=== PATIENT | female | born 1955 | race Hispanic/Latino ===

== ENCOUNTER 2021-08-14 22:34 | Emergency (ER) | payer OTHER, SELFPAY ==
[2021-08-15 01:03] LABS: Absolute Lymphocytes (CBC) 0.5 K/uL (0.7-4.9); Hematocrit 35.9 % (36.0-45.0); MPV 7.9 fL (7.6-11.3); RBC Red Blood Cell Count 3.98 M/uL (3.86-4.86)
[2021-08-15] MEDS ORDERED: ONDANSETRON 4 MG/2 ML VIAL ONE (01:07)
[2021-08-15] MEDS ORDERED: MORPHINE 4 MG/ML SYR ONE (01:07)
[2021-08-15] MEDS ORDERED: NA CHLORIDE 0.9% 1,000 ML ONE (01:07)
[2021-08-15 01:20] LABS: Albumin 4.1 g/dL (3.4-5.0); Bilirubin Total 0.5 mg/dL (0.2-1.0); Potassium 3.8 mmol/L (3.5-5.1); Protein, Total 8.1 g/dL (6.4-8.2)
[2021-08-15 01:39] LABS: Urine Bacteria >50 /HPF (<20)
[2021-08-15 01:40] LABS: Urine Amorphous Sediment 2+ /HPF (NONE SEEN); Urine Mucus 1+ /HPF (NONE SEEN)
[2021-08-15 02:19] LABS: Urine Blood 2+ (Negative); Urine Glucose Negative (Negative); Urine Protein Negative (Negative); Urine pH 8.5 (5.0-7.0)
--- NOTE | 2021-08-15 03:37 | ER ---
Nurse's Notes [facility] Name: Venus Kenny Age: 66 yrs Sex: Female : 1955 Arrival Date: 08/14/2021 Time: 22:37 Bed 8 Private MD: Diagnosis: Ureterolithiasis Presentation: 08/14 22:44 Chief complaint: Patient states: RLQ pain - N/V since 1800. Coronavirus screen: At this ld1 time, the client does not indicate any symptoms associated with coronavirus-19. Ebola Screen: No symptoms or risks identified at this time. Initial Sepsis Screen: Does the patient meet any 2 criteria? No. Patient's initial sepsis screen is negative. Does the patient have a suspected source of infection? No. Patient's initial sepsis screen is negative. Risk Assessment: Do you want to hurt yourself or someone else? Patient reports no desire to harm self or others. Onset of symptoms was August 14, 2021 at 22:45. 22:44 Method Of Arrival: Ambulatory ld1 22:44 Acuity: BG 3 ld1 Triage Assessment: 22:45 General: Appears in no apparent distress. comfortable, Behavior is calm, cooperative, ld1 appropriate for age. Pain: Complains of pain in right lower quadrant Pain does not radiate. Pain currently is 9 out of 10 on a pain scale. Neuro: Level of Consciousness is awake, alert, obeys commands, Oriented to person, place, time, situation. Cardiovascular: Capillary refill < 3 seconds Patient's skin is warm and dry. Respiratory: Airway is patent Respiratory effort is even, unlabored. GI: Abdomen is flat, non-distended, Reports lower abdominal pain, nausea, vomiting. Historical: - Allergies: 22:45 BuSpar; ld1 22:45 Iodine; ld1 - PMHx: 22:45 Diverticulitis; Cancer; ld1 - PSHx: 22:45 Tonsillectomy; Total abdominal hysterectomy; ld1 - Immunization history:: Adult Immunizations up to date, Client reports receiving the 2nd dose of the Covid vaccine. - Social history:: Smoking status: Patient denies any tobacco usage or history of. Patient/guardian denies using alcohol. Screenin/27 03:24 Abuse screen: Denies threats or abuse. Nutritional screening: No deficits noted. ke1 Tuberculosis screening: No symptoms or risk factors identified. Fall Risk No fall in past 12 months (0 pts). No secondary diagnosis (0 pts). IV access (20 points). Ambulatory Aid- None/Bed Rest/Nurse Assist (0 pts). Gait- Normal/Bed Rest/Wheelchair (0 pts) Mental Status- Oriented to own ability (0 pts). Total Aldana Fall Scale indicates No Risk (0-24 pts). Assessment: 00:15 General: Appears in no apparent distress. Behavior is appropriate for age. Pain: [facility] Complains of pain in right flank and abdomen and right lower quadrant Pain currently is 8 out of 10 on a pain scale. 03:24 GI: Bowel sounds present X 4 quads. Abd is soft Abdomen is tender to palpation in right [facility] lower quadrant. Vital Signs: 08/14 22:44 BP 145 / 94; Pulse 81; Resp 18; Temp 98.1(TE); Pulse Ox 96% on R/A; Weight 56.7 kg; ld1 Height 5 ft. 0 in. (152.40 cm); Pain 9/10; 08/15 04:21 BP 134 / 86; Pulse 78; Resp 18; Pulse Ox 100% ; ke1 08/14 22:44 Body Mass Index 24.41 (56.70 kg, 152.40 cm) 1 ED Course: 08/14 22:37 Patient arrived in ED. kz 22:45 Triage completed. ld1 22:45 Arm band placed on right wrist. ld1 23:51 Luther Carlos, BETSY is Primary Nurse. ke1 23:55 Dom Olivas MD is Attending Physician. [facility] 08/15 01:17 Inserted saline lock: 20 gauge in right forearm, using aseptic technique. ke1 01:59 CT Abd/Pelvis - Without Contrast In Process Unspecified. EDMS 03:25 Bed in low position. Call light in reach. ke1 03:36 Jono Angel MD is Referral Physician. [facility] 04:19 No provider procedures requiring assistance completed. IV discontinued. ke1 Administered Medications: 01:17 Drug: Zofran (Ondansetron) 4 mg Route: IVP; Site: right forearm; ke1 01:30 Follow up: Response: Marked relief of symptoms [facility] 01:17 Drug: morphine 4 mg Route: IVP; Infused Over: 4 mins; Site: right forearm; ke1 01:30 Follow up: Response: Marked relief of symptoms ke1 01:18 Drug: NS 0.9% 1000 ml Route: IV; Rate: 1000 ml; Site: right forearm; ke1 04:20 Follow up: IV Status: Completed infusion ke1 03:50 Drug: Rocephin (cefTRIAXone) 1 grams Route: IV; Rate: per protocol; Site: right forearm;ke1 04:20 Follow up: IV Status: Completed infusion ke1 Medication: 04:20 VIS not applicable for this client. ke1 Outcome: 03:36 Discharge ordered by . [facility] 04:19 Discharged to home ambulatory. ke1 04:19 Condition: good 04:19 Discharge instructions given to patient. 04:22 Patient left the ED. ke1 Signatures: Dispatcher [employer] Dom Suh MD MD 7 Lizbeth Fong RN RN adiel1 Luther Carlos RN RN ke1 Emmy Acevedo
--- NOTE | 2021-08-15 03:38 | EDPHYS ---
Physician Documentation [facility] Name: Venus Kenny Age: 66 yrs Sex: Female : 1955 Arrival Date: 08/14/2021 Time: 22:37 Bed 8 Private MD: ED Physician Dom Olivas HPI: 08/15 00:19 This 66 yrs old Female presents to ER via Ambulatory with complaints of mh7 Abdominal Pain - Lower right, Vomiting. 00:19 The patient complains of pain in the right flank. The pain radiates to the right lower mh7 quadrant. Onset: The symptoms/episode began/occurred today, at 18:00. Modifying factors: The symptoms are alleviated by nothing. the symptoms are aggravated by nothing. Associated signs and symptoms: Pertinent positives: nausea, vomiting, Pertinent negatives: diarrhea, dizziness, dysuria, fever, urinary frequency, headache, hematuria, pain radiating to the lower extremities. Severity of pain: At its worst the pain was moderate just prior to arrival, in the emergency department the pain has improved moderately. Historical: - Allergies: 08/14 22:45 BuSpar; ld1 22:45 Iodine; ld1 - PMHx: 22:45 Diverticulitis; Cancer; ld1 - PSHx: 22:45 Tonsillectomy; Total abdominal hysterectomy; ld1 - Immunization history:: Adult Immunizations up to date, Client reports receiving the 2nd dose of the Covid vaccine. - Social history:: Smoking status: Patient denies any tobacco usage or history of. Patient/guardian denies using alcohol. ROS: 08/15 00:19 Constitutional: Negative for fever, chills, and weight loss, Eyes: Negative for injury, mh7 pain, redness, and discharge, ENT: Negative for injury, pain, and discharge, Neck: Negative for injury, pain, and swelling, Cardiovascular: Negative for chest pain, palpitations, and edema, Respiratory: Negative for shortness of breath, cough, wheezing, and pleuritic chest pain, : Negative for injury, bleeding, discharge, and swelling, MS/Extremity: Negative for injury and deformity, Skin: Negative for injury, rash, and discoloration, Neuro: Negative for headache, weakness, numbness, tingling, and seizure, Psych: Negative for depression, anxiety, suicide ideation, homicidal ideation, and hallucinations, Allergy/Immunology: Negative for hives, rash, and allergies, Endocrine: Negative for neck swelling, polydipsia, polyuria, polyphagia, and marked weight changes, Hematologic/Lymphatic: Negative for swollen nodes, abnormal bleeding, and unusual bruising. Exam: 00:19 Constitutional: This is a well developed, well nourished patient who is awake, alert, mh7 and in no acute distress. Head/Face: Normocephalic, atraumatic. Eyes: Pupils equal round and reactive to light, extra-ocular motions intact. Lids and lashes normal. Conjunctiva and sclera are non-icteric and not injected. Cornea within normal limits. Periorbital areas with no swelling, redness, or edema. Neck: Trachea midline, no thyromegaly or masses palpated, and no cervical lymphadenopathy. Supple, full range of motion without nuchal rigidity, or vertebral point tenderness. No Meningismus. Chest/axilla: Normal chest wall appearance and motion. Nontender with no deformity. No lesions are appreciated. Cardiovascular: Regular rate and rhythm with a normal S1 and S2. No gallops, murmurs, or rubs. Normal PMI, no JVD. No pulse deficits. Respiratory: Lungs have equal breath sounds bilaterally, clear to auscultation and percussion. No rales, rhonchi or wheezes noted. No increased work of breathing, no retractions or nasal flaring. Abdomen/GI: Soft, non-tender, with normal bowel sounds. No distension or tympany. No guarding or rebound. No evidence of tenderness throughout. 00:19 Skin: Warm, dry with normal turgor. Normal color with no rashes, no lesions, and no evidence of cellulitis. MS/ Extremity: Pulses equal, no cyanosis. Neurovascular intact. Full, normal range of motion. Neuro: Awake and alert, GCS 15, oriented to person, place, time, and situation. Cranial nerves II-XII grossly intact. Motor strength 5/5 in all extremities. Sensory grossly intact. Cerebellar exam normal. Normal gait. Psych: Awake, alert, with orientation to person, place and time. Behavior, mood, and affect are within normal limits. 00:19 Back: normal spinal alignment noted, CVA tenderness, that is moderate, is noted on the right, vertebral tenderness, is not appreciated, muscle spasm, is not present. Vital Signs: 08/14 22:44 BP 145 / 94; Pulse 81; Resp 18; Temp 98.1(TE); Pulse Ox 96% on R/A; Weight 56.7 kg; ld1 Height 5 ft. 0 in. (152.40 cm); Pain 9/10; 08/15 04:21 BP 134 / 86; Pulse 78; Resp 18; Pulse Ox 100% ; ke1 08/14 22:44 Body Mass Index 24.41 (56.70 kg, 152.40 cm) ld1 MDM: 03:35 Differential diagnosis: nephrolithiasis, pyelonephritis, UTI, diverticulitis. Data [facility] reviewed: vital signs, nurses notes, lab test result(s), CBC, electrolytes, urinalysis, radiologic studies, CT scan. Data interpreted: Pulse oximetry: on room air is 96 %. Interpretation: normal. Counseling: I had a detailed discussion with the patient and/or guardian regarding: the historical points, exam findings, and any diagnostic results supporting the discharge/admit diagnosis, the presence of at least one elevated blood pressure reading (>120/80) during this emergency department visit, lab results, radiology results, the need for outpatient follow up, a urologist, to return to the emergency department if symptoms worsen or persist or if there are any questions or concerns that arise at home. Response to treatment: the patient's symptoms have resolved after treatment, the patient's blood pressure is in an acceptable range, mental status has returned to baseline, the patient no longer shows bradycardia, the patient is not short of breath, the patient is not tachycardic, the patient's pain is gone, the patient's temperature has normalized. 03:36 Patient medically screened. [facility] 08/15 00:13 Order name: CBC with Diff; Complete Time: 03:28 ke 08/15 00:13 Order name: CMP; Complete Time: 03: [facility] 08/15 00:13 Order name: Lipase; Complete Time: 03: [facility] 08/15 00:14 Order name: Urine Microscopic Only; Complete Time: 03: ke 08/15 01:42 Order name: Urine Culture [facility] 08/15 02:20 Order name: Urine Dipstick-Ancillary; Complete Time: 03: [facility] 08/15 00:13 Order name: IV Saline Lock; Complete Time: 01:18 ke1 08/15 00:13 Order name: Labs collected and sent; Complete Time: 01:18 ke08/15 00:13 Order name: CT Abd/Pelvis - Without Contrast ke1 08/15 00:13 Order name: Urine Dipstick-Ancillary (obtain specimen); Complete Time: 02:19 ke1 Administered Medications: 01:17 Drug: Zofran (Ondansetron) 4 mg Route: IVP; Site: right forearm; ke1 01:30 Follow up: Response: Marked relief of symptoms ke1 01:17 Drug: morphine 4 mg Route: IVP; Infused Over: 4 mins; Site: right forearm; ke1 01:30 Follow up: Response: Marked relief of symptoms ke1 01:18 Drug: NS 0.9% 1000 ml Route: IV; Rate: 1000 ml; Site: right forearm; ke1 04:20 Follow up: IV Status: Completed infusion ke1 03:50 Drug: Rocephin (cefTRIAXone) 1 grams Route: IV; Rate: per protocol; Site: right forearm;ke1 04:20 Follow up: IV Status: Completed infusion ke1 Disposition Summary: 08/15/21 03:36 Discharge Ordered Location: Home [facility] Problem: an acute exacerbation [facility] Symptoms: have improved [facility] Condition: Stable [facility] Diagnosis - Ureterolithiasis [facility] Followup: [facility] - With: Private Physician - When: 1 - 2 days - Reason: Worsening of condition, Recheck today's complaints, Continuance of care, Re-evaluation by your physician Followup: [facility] - With: Jono Angel MD - When: 1 - 2 days - Reason: Worsening of condition, Recheck today's complaints Discharge Instructions: - Discharge Summary Sheet [facility] - Kidney Stones, [id number] [facility] Forms: - Medication Reconciliation Form [facility] - Thank You Letter [facility] - Antibiotic Education [facility] - Prescription Opioid Use [facility] Prescriptions: - Flomax 0.4 mg Oral capsule - take 1 capsule by ORAL route once daily 1/2 hour following the same meal each [facility] day; 7 capsule; Refills: 0, Product Selection Permitted - ondansetron 4 mg Oral tablet,disintegrating - place 1 tablet by TRANSLINGUAL route every 8 hours As needed; 10 tablet; [facility] Refills: 0, Product Selection Permitted - Cipro 500 mg Oral Tablet - take 1 tablet by ORAL route every 12 hours for 10 days; 20 tablet; Refills: 0, [facility] Product Selection Permitted - ketorolac 10 mg Oral tablet - take 1 tablet by ORAL route every 8 hours As needed not to exceed 40 mg in [facility] 24hrs; 12 tablet; Refills: 0, Product Selection Permitted - Tylenol-Codeine #3 300 mg-30 mg Oral - take 2 tablet by ORAL route every 6 hours As needed; 15 tablet; Refills: 0, 7 Product Selection Permitted Signatures: Dispatcher [employer] Dom Suh MD MD 7 Lizbeth Fong RN RN ld1 Luther Carlos RN RN ke1
[2021-08-15] MEDS ORDERED: NA CHLORIDE 0.9% 50 ML ONE (03:50)
[2021-08-15] MEDS ORDERED: CEFTRIAXONE 1000 MG/VIAL ONE (03:50)
[2021-08-15 04:28] VITALS: TEMP 98.1
[2021-08-15 04:30] VITALS: BP 134/86; O2SAT 100
--- NOTE | 2021-08-15 10:44 | RAD REPORT ---
EXAM DESCRIPTION: CT - Abdomen Pelvis Wo Contrast - 08/15/2021 6:53 am CLINICAL HISTORY: 66 years, Female, Abdominal pain, acute, nonlocalized COMPARISON: None. TECHNIQUE: Multiple transaxial tomograms of the abdomen and pelvis were performed from the lung base s to the symphysis pubis 5 mm slice thickness at 5 mm interval reconstruction, without administration of IV and oral contrast. Multiplanar reformats in the sagittal and coronal plane were generated and reviewed. This exam was performed according to our departmental dose-optimization protocol, which includes auto mated exposure control, adjustment of the mA and/or kV according to patient size and/or use of iterat zoran reconstruction technique. FINDINGS: The lack of IV and oral contrast limits evaluation of solid organs, subtle lesions cannot be excluded. The lung bases demonstrate to be clear. There is a small hiatal hernia. Grossly the unopacified liver demonstrated presence of a subcapsular right hepatic lobe cyst measurin g 1.6 x 1.7 cm on image 12. Otherwise the liver, gallbladder, pancreas, spleen and adrenal glands dem onstrate to be within normal limits, no significant focal lesions were identified. There is increased size of the right kidney with perinephric haziness, right hydronephrosis and proxi mal right hydroureter extending down to the level of the inferior age right side vertebral body of L4 where there is a 2.2 x 2.4 mm calculus on axial image 37 and coronal image 65. There is a lower pole calculus right kidney measuring 2.1 mm on image 29. The left kidney demonstrated presence of a mid pole calculus measuring 2.6 cm on image 20. There are findings suggesting parapelvic lower pole renal cyst measuring approximately 3.5 x 2 cm on image 23. There is no evidence for left hydronephrosis and pressure left hydroureter. Grossly the unopacified stomach, small bowel and large bowel demonstrate to be within normal limits. There is no evidence for bowel dilatation/or free air. There is diverticulosis throughout the large b owel surgical suture row within the right lower quadrant correspond to most likely previous appendect alex. The urinary bladder demonstrate to be within normal limits. The uterus is absent. There are no adnexa l masses The aorta demonstrate to be within normal limits. There is no retroperitoneal lymphadenopa thy. There is no evidence for ascites. The bone windows demonstrate rotation and levoscoliosis of a pproximately 29 degrees. IMPRESSION: 2.2 x 2.4 mm obstructing calculus in the right ureter at the level of the inferior age r ight side vertebral body of L4 with significant right hydronephrosis and proximal right hydroureter. Bilateral nephrolithiasis. Left renal cyst. Colonic diverticulosis without evidence for acute diverticulitis. Status post hysterectomy and appendectomy. Small hiatal hernia. Scoliosis of the lumbar spine. Electronically signed by: Jeronimo Walker MD 08/15/2021 2:16 AM CDT Due to temporary technical issues with the PACS/Fluency reporting system, reports are being signed by the in house radiologist without review as a courtesy to ensure prompt reporting. The interpreting r adiologist is fully responsible for the content of the report.
== END 2021-08-15 04:22 | disposition home or self-care (01) ==
LOC: ER 22:34
DX: N20.1 Calculus of ureter (principal); Z88.8 Allergy status to other drugs, medicaments and biological substances; Z91.048 Other nonmedicinal substance allergy status
CPT/HCPCS: 96365; 96361; 87088; 85025; 87086; 36415; 83690; 80053; 74176; 96375; 99283; J7030; J2405; 81003; 81015

== ENCOUNTER → 2023-04-04 | Emergency (ER) | payer OTHER ==
--- OUTSIDE RECORDS SUMMARY | 2023-04-04 11:25 | XMS REPORT | Continuity of Care Document ---
Author Name Unknown Address [address] [facility] [address] [place] [address] [facility] Address [address] [facility] [address] [place] [address] Care Team Providers Care Microcomputer Support Specialist Name Role Phone TRANG ZUÑIGA Primary Care Physician Unavailable JOANA GUTIERREZ Attending Clinician Unavailable TRANG ZUÑIGA Attending Clinician Radha YANDY Brooks Attending Clinician Unavailable YANDY FERRARA Attending Clinician Unavailable Lab, Ang - Db Attending Clinician Unavailable Trang Zuñiga MD Attending Clinician EVA ANDERSEN Attending Clinician Unavailable Eva Andersen PA-C Attending Clinician [phone] Unknown, Attending Attending Clinician UnavailTAYLOR Musa Attending Clinician UnavailTAYLOR Rene Attending Clinician UnavailPRASHANTH Rodriguez Attending Clinician Unavailable Eri Griggs Attending Clinician [phone] Joana Gutierrez MD Attending Clinician [phone] Doctor Unassigned, [place] Attending Clinician Prashanth Valadez Attending Clinician [phone] JOANA GUTIERREZ Admitting Clinician Unavailable Joana Gutierrez MD Admitting Clinician [phone] Payers Payer Name Policy Type Policy Number Effective Date Expirati on Date Source [employer] [id number] 2022 00:00:00 Problems Condition Name Condition Details Condition Category Status Onset Date Resolution Date Last Treatment Date Treating Clinician Comments Source Encounter for screening colonoscop y Encounter for screening colonoscop y Disease Active 11-17 00:00: 00 [facility] Allergies, Adverse Reactions, Alerts Allergy Name Allergy Type Status Severity Reaction(s) Onset Date Inactive Date Treating Clinician Comments Source BUSPIRON E DRUG INGREDI Active Med Other-Cmnt 10-27 00:00: 00 [facility] IODINE DRUG INGREDI Active Med Hives 10-27 00:00: 00 [facility] Buspiron e Propensi ty to adverse reaction s to drug Active Other - See comments 10-27 00:00: 00 Severe headache [facility] Iodine Drug Allergy Active Itching 10-27 00:00: 00 [facility] NO KNOWN ALLERGIE S Drug Class Active [facility] Social History Social Habit Start Date Stop Date Quantity Comments Source Gender identity [facility] Sexual orientation [facility] Alcohol intake 2023-04-01 00:00:00 2023-04-01 00:00:00 Current drinker of alcohol (finding) [facility] History of Social function 2023-04-01 00:00:00 2023-04-01 00:00:00 [facility] Tobacco use and exposure 2022-10-27 00:00:00 2022-10-27 00:00:00 Smokeless tobacco non-user [facility] Alcohol Comment 2022-10-27 00:00:00 2022-10-27 00:00:00 glass of wine monthly [facility] Sex Ass[birth year] At 1955 00:00:00 1955 00:00:00 [facility] Smoking Status Start Date Stop Date Source Tobacco smoking consumption unknown [facility] Never smoked tobacco [facility] Medications Ordered Medication Name Filled Medication Name Start Date Stop Date Current Medication? Ordering Clinician Indication Dosage Frequency Signature (SIG) Comments Components Source meloxicam 15 mg tablet 111 13:41: 42 Yes 15mg Take 1 tablet by mouth in the morning. [facility] meloxicam 15 mg tablet 11 13:41: 42 Yes 15mg Take 1 tablet by mouth in the morning. [facility] meloxicam 15 mg tablet 2023-0 04-01 13:41: 42 Yes 15mg Take 1 tablet by mouth in the morning. [facility] meloxicam 15 mg tablet 2023-0 04-01 13:41: 42 Yes 15mg Take 1 tablet by mouth in the morning. [facility] meloxicam 15 mg tablet 2023-0 04-01 13:41: 42 Yes 15mg Take 1 tablet by mouth in the morning. [facility] DULoxetine 20 mg capsule 4-0 04-01 00:00: 00 Yes [id number] 20mg Take 1 capsule by mouth in the morning. [facility] melatonin 3 mg Cap 2023-0 04-01 00:00: 00 Yes [id number] 3mg Take 3 mg by mouth at bedtime. [facility] DULoxetine 20 mg capsule 4-0 04-01 00:00: 00 Yes [id number] 20mg Take 1 capsule by mouth in the morning. [facility] melatonin 3 mg Cap 4-0 04-01 00:00: 00 Yes [id number] 3mg Take 3 mg by mouth at bedtime. [facility] DULoxetine 20 mg capsule 2023-0 04-01 00:00: 00 Yes [id number] 20mg Take 1 capsule by mouth in the morning. [facility] melatonin 3 mg Cap 4-0 04-01 00:00: 00 Yes [id number] 3mg Take 3 mg by mouth at bedtime. [facility] DULoxetine 20 mg capsule 4-0 04-01 00:00: 00 Yes [id number] 20mg Take 1 capsule by mouth in the morning. [facility] melatonin 3 mg Cap 4-0 04-01 00:00: 00 Yes [id number] 3mg Take 3 mg by mouth at bedtime. [facility] DULoxetine 20 mg capsule 4-0 04-01 00:00: 00 Yes [id number] 20mg Take 1 capsule by mouth in the morning. [facility] melatonin 3 mg Cap 04-01 00:00: 00 Yes [id number] 3mg Take 3 mg by mouth at bedtime. [facility] predniSONE 20 mg tablet 04-01 00:00: 00 04-07 05:59 :00 Yes [id number] 20mg Take 1 tablet by mouth in the morning and 1 tablet in the evening. Do all this for 5 days. [facility] predniSONE 20 mg tablet 04-01 00:00: 00 04-07 05:59 :00 Yes [id number] 20mg Take 1 tablet by mouth in the morning and 1 tablet in the evening. Do all this for 5 days. [facility] predniSONE 20 mg tablet 04-01 00:00: 00 04-07 05:59 :00 Yes [id number] 20mg Take 1 tablet by mouth in the morning and 1 tablet in the evening. Do all this for 5 days. [facility] predniSONE 20 mg tablet 04-01 00:00: 00 04-07 05:59 :00 Yes [id number] 20mg Take 1 tablet by mouth in the morning and 1 tablet in the evening. Do all this for 5 days. [facility] predniSONE 20 mg tablet 04-01 00:00: 00 04-07 05:59 :00 Yes [id number] 20mg Take 1 tablet by mouth in the morning and 1 tablet in the evening. Do all this for 5 days. [facility] bromphenira mine-pseudo ephedrine-D M (BROMFED DM) 2-30-10 mg/5 mL syrup 03-25 00:00: 00 Yes [id number] 5mL Take 5 mL by mouth 3 (three) times daily as needed for Cough. [facility] benzonatate (TESSALON PERLES) 100 mg capsule 03-25 00:00: 00 Yes [id number] Take 1-2 capsules three times a day as needed for cough. [facility] bromphenira mine-pseudo ephedrine-D M (BROMFED DM) 2-30-10 mg/5 mL syrup 0 03-25 00:00: 00 Yes [id number] 5mL Take 5 mL by mouth 3 (three) times daily as needed for Cough. [facility] benzonatate (TESSALON PERLES) 100 mg capsule 0 03-25 00:00: 00 Yes [id number] Take 1-2 capsules three times a day as needed for cough. [facility] bromphenira mine-pseudo ephedrine-D M (BROMFED DM) 2-30-10 mg/5 mL syrup 0 03-25 00:00: 00 Yes [id number] 5mL Take 5 mL by mouth 3 (three) times daily as needed for Cough. [facility] benzonatate (TESSALON PERLES) 100 mg capsule 03-25 00:00: 00 Yes [id number] Take 1-2 capsules three times a day as needed for cough. [facility] bromphenira mine-pseudo ephedrine-D M (BROMFED DM) 2-30-10 mg/5 mL syrup 0 03-25 00:00: 00 Yes [id number] 5mL Take 5 mL by mouth 3 (three) times daily as needed for Cough. [facility] benzonatate (TESSALON PERLES) 100 mg capsule 0 03-25 00:00: 00 Yes [id number] Take 1-2 capsules three times a day as needed for cough. [facility] bromphenira mine-pseudo ephedrine-D M (BROMFED DM) 2-30-10 mg/5 mL syrup 0 03-25 00:00: 00 Yes [id number] 5mL Take 5 mL by mouth 3 (three) times daily as needed for Cough. [facility] benzonatate (TESSALON PERLES) 100 mg capsule 0 03-25 00:00: 00 Yes [id number] Take 1-2 capsules three times a day as needed for cough. [facility] bromphenira mine-pseudo ephedrine-D M (BROMFED DM) 2-30-10 mg/5 mL syrup 2023-0 -04 00:00: 00 Yes [id number] 5mL Take 5 mL by mouth 3 (three) times daily as needed for Cough. [facility] benzonatate (TESSALON PERLES) 100 mg capsule 03-25 00:00: 00 Yes [id number] Take 1-2 capsules three times a day as needed for cough. [facility] bromphenira mine-pseudo ephedrine-D M (BROMFED DM) 2-30-10 mg/5 mL syrup 03-25 00:00: 00 Yes [id number] 5mL Take 5 mL by mouth 3 (three) times daily as needed for Cough. [facility] benzonatate (TESSALON PERLES) 100 mg capsule 03-25 00:00: 00 Yes [id number] Take 1-2 capsules three times a day as needed for cough. [facility] bromphenira mine-pseudo ephedrine-D M (BROMFED DM) 2-30-10 mg/5 mL syrup 2022-03 00:00: 00 Yes [id number] 5mL Take 5 mL by mouth 3 (three) times daily as needed for Cough. [facility] oseltamivir (TAMIFLU) 75 mg capsule 2022-03 00:00: 00 03-25 05:59 :00 Yes [id number] 75mg Take 1 capsule by mouth in the morning and 1 capsule in the evening. Do all this for 5 days. [facility] bromphenira mine-pseudo ephedrine-D M (BROMFED DM) 2-30-10 mg/5 mL syrup 2022-03 00:00: 00 03-25 00:00 :00 No [id number] 5mL Take 5 mL by mouth 3 (three) times daily as needed for Cough. [facility] bromphenira mine-pseudo ephedrine-D M (BROMFED DM) 2-30-10 mg/5 mL syrup 2022-03 00:00: 00 03-25 00:00 :00 No [id number] 5mL Take 5 mL by mouth 3 (three) times daily as needed for Cough. [facility] diclofenac 75 mg EC tablet 2022-03 00:00: 00 Yes [id number] 75mg Take 1 tablet by mouth 2 (two) times daily with meals as needed for Pain. [facility] dic[facility] EC tablet 2022-03 00:00: 00 Yes [id number] 75mg Take 1 tablet by mouth 2 (two) times daily with meals as needed for Pain. [facility] diclofenac 75 mg EC tablet 2022-03 00:00: 00 Yes [id number] 75mg Take 1 tablet by mouth 2 (two) times daily with meals as needed for Pain. [facility] diclofenac 75 mg EC tablet 2022-03 00:00: 00 Yes [id number] 75mg Take 1 tablet by mouth 2 (two) times daily with meals as needed for Pain. [facility] diclofenac 75 mg EC tablet 2022-03 00:00: 00 Yes [id number] 75mg Take 1 tablet by mouth 2 (two) times daily with meals as needed for Pain. [facility] diclofenac 75 mg EC tablet 2022-03 00:00: 00 Yes [id number] 75mg Take 1 tablet by mouth 2 (two) times daily with meals as needed for Pain. [facility] diclofenac 75 mg EC tablet 2022-03 00:00: 00 04-01 00:00 :00 No [id number] 75mg Take 1 tablet by mouth 2 (two) times daily with meals as needed for Pain. [facility] diclofenac 75 mg EC tablet 2022-03 00:00: 00 04-01 00:00 :00 No [id number] 75mg Take 1 tablet by mouth 2 (two) times daily with meals as needed for Pain. [facility] CHOLECALCIF SAM, VITAMIN D3, 1,250 mcg (50,000 unit) capsule 2022-03 00:00: 00 Yes [id number] TAKE 1 CAPSULE BY MOUTH ONE TIME PER WEEK [facility] meloxicam 15 mg tablet 2022-03 00:00: 00 Yes [id number] 15mg Take 1 tablet by mouth in the morning. [facility] CHOLECALCIF SAM, VITAMIN D3, 1,250 mcg (50,000 unit) capsule 2022-03 00:00: 00 Yes [id number] TAKE 1 CAPSULE BY MOUTH ONE TIME PER WEEK [facility] CHOLECALCIF SAM, VITAMIN D3, 1,250 mcg (50,000 unit) capsule 2022-03 00:00: 00 Yes [id number] TAKE 1 CAPSULE BY MOUTH ONE TIME PER WEEK [facility] CHOLECALCIF SAM, VITAMIN D3, 1,250 mcg (50,000 unit) capsule 2022-03 00:00: 00 Yes [id number] TAKE 1 CAPSULE BY MOUTH ONE TIME PER WEEK [facility] CHOLECALCIF SAM, VITAMIN D3, 1,250 mcg (50,000 unit) capsule 2022-03 00:00: 00 Yes [id number] TAKE 1 CAPSULE BY MOUTH ONE TIME PER WEEK [facility] CHOLECALCIF SAM, VITAMIN D3, 1,250 mcg (50,000 unit) capsule 2022-03 00:00: 00 Yes [id number] TAKE 1 CAPSULE BY MOUTH ONE TIME PER WEEK [facility] CHOLECALCIF SAM, VITAMIN D3, 1,250 mcg (50,000 unit) capsule 2022-03 00:00: 00 Yes [id number] TAKE 1 CAPSULE BY MOUTH ONE TIME PER WEEK [facility] CHOLECALCIF SAM, VITAMIN D3, 1,250 mcg (50,000 unit) capsule 2022-03 00:00: 00 Yes [id number] TAKE 1 CAPSULE BY MOUTH ONE TIME PER WEEK [facility] CHOLECALCIF SAM, VITAMIN D3, 1,250 mcg (50,000 unit) capsule 2022-03 00:00: 00 Yes [id number] TAKE 1 CAPSULE BY MOUTH ONE TIME PER WEEK [facility] CHOLECALCIF SAM, VITAMIN D3, 1,250 mcg (50,000 unit) capsule 2022-03 00:00: 00 Yes [id number] TAKE 1 CAPSULE BY MOUTH ONE TIME PER WEEK [facility] CHOLECALCIF SAM, VITAMIN D3, 1,250 mcg (50,000 unit) capsule 2022-03 00:00: 00 Yes [id number] TAKE 1 CAPSULE BY MOUTH ONE TIME PER WEEK [facility] CHOLECALCIF SAM, VITAMIN D3, 1,250 mcg (50,000 unit) capsule 2022-03 00:00: 00 Yes [id number] TAKE 1 CAPSULE BY MOUTH ONE TIME PER WEEK [facility] meloxicam 15 mg tablet 2022-03 00:00: 00 03-02 00:00 :00 No [id number] 15mg Take 1 tablet by mouth in the morning. [facility] meloxicam 15 mg tablet 2022-03 00:00: 00 03-02 00:00 :00 No [id number] 15mg Take 1 tablet by mouth in the morning. [facility] mv-min/iron /folic/calc ium/vitK (WOMEN'S MULTIVITAMI N ORAL) 2022-03 0 09:18: 47 Yes 1{tbl} Take 1 tablet by mouth in the morning. [facility] mv-min/iron /folic/calc ium/vitK (WOMEN'S MULTIVITAMI N ORAL) 2022-03 0 09:18: 47 Yes 1{tbl} Take 1 tablet by mouth in the morning. [facility] mv-min/iron /folic/calc ium/vitK (WOMEN'S MULTIVITAMI N ORAL) 2022-03 0 09:18: 47 Yes 1{tbl} Take 1 tablet by mouth in the morning. [facility] mv-min/iron /folic/calc ium/vitK (WOMEN'S MULTIVITAMI N ORAL) 2022-03 0 09:18: 47 Yes 1{tbl} Take 1 tablet by mouth in the morning. [facility] mv-min/iron /folic/calc ium/vitK (WOMEN'S MULTIVITAMI N ORAL) 2022-03 017 09:18: 47 Yes 1{tbl} Take 1 tablet by mouth in the morning. [facility] mv-min/iron /folic/calc ium/vitK (WOMEN'S MULTIVITAMI N ORAL) 2022-03 0-17 09:18: 47 Yes 1{tbl} Take 1 tablet by mouth in the morning. [facility] mv-min/iron /folic/calc ium/vitK (WOMEN'S MULTIVITAMI N ORAL) 2022-03 017 09:18: 47 Yes 1{tbl} Take 1 tablet by mouth in the morning. [facility] mv-min/iron /folic/calc ium/vitK (WOMEN'S MULTIVITAMI N ORAL) 2022-03 017 09:18: 47 Yes 1{tbl} Take 1 tablet by mouth in the morning. [facility] mv-min/iron /folic/calc ium/vitK (WOMEN'S MULTIVITAMI N ORAL) 2022-03 017 09:18: 47 Yes 1{tbl} Take 1 tablet by mouth in the morning. [facility] mv-min/iron /folic/calc ium/vitK (WOMEN'S MULTIVITAMI N ORAL) 2022-03 017 09:18: 47 Yes 1{tbl} Take 1 tablet by mouth in the morning. [facility] mv-min/iron /folic/calc ium/vitK (WOMEN'S MULTIVITAMI N ORAL) 2022-03 017 09:18: 47 Yes 1{tbl} Take 1 tablet by mouth in the morning. [facility] mv-min/iron /folic/calc ium/vitK (WOMEN'S MULTIVITAMI N ORAL) 2022-03 017 09:18: 47 Yes 1{tbl} Take 1 tablet by mouth in the morning. [facility] mv-min/iron /folic/calc ium/vitK (WOMEN'S MULTIVITAMI N ORAL) 2022-03 0-17 09:18: 47 Yes 1{tbl} Take 1 tablet by mouth in the morning. [facility] mv-min/iron /folic/calc ium/vitK (WOMEN'S MULTIVITAMI N ORAL) 2022-03 017 09:18: 47 Yes 1{tbl} Take 1 tablet by mouth in the morning. [facility] mv-min/iron /folic/calc ium/vitK (WOMEN'S MULTIVITAMI N ORAL) 2022-03 017 09:18: 47 Yes 1{tbl} Take 1 tablet by mouth in the morning. [facility] mv-min/iron /folic/calc ium/vitK (WOMEN'S MULTIVITAMI N ORAL) 2022-03 0 09:18: 47 Yes 1{tbl} Take 1 tablet by mouth in the morning. [facility] mv-min/iron /folic/calc ium/vitK (WOMEN'S MULTIVITAMI N ORAL) 2022-03 017 09:18: 47 Yes 1{tbl} Take 1 tablet by mouth in the morning. [facility] mv-min/iron /folic/calc ium/vitK (WOMEN'S MULTIVITAMI N ORAL) 2022-03 0 09:18: 47 Yes 1{tbl} Take 1 tablet by mouth in the morning. [facility] meloxicam 15 mg tablet 2022-03 017 00:00: 00 Yes [id number] 15mg Take 1 tablet by mouth in the morning. [facility] meloxicam 15 mg tablet 2022-03 017 00:00: 00 Yes [id number] 15mg Take 1 tablet by mouth in the morning. [facility] meloxicam 15 mg tablet 2022-03 0-17 00:00: 00 Yes [id number] 15mg Take 1 tablet by mouth in the morning. [facility] meloxicam 15 mg tablet 2022-03 0-17 00:00: 00 Yes [id number] 15mg Take 1 tablet by mouth in the morning. [facility] meloxicam 15 mg tablet 2022-03 0-17 00:00: 00 02-10 00:00 :00 No [id number] 15mg Take 1 tablet by mouth in the morning. [facility] water for irrigation irrigation solution 2022-03 0-04 15:24: 00 12-23 16:17 :54 No PRN, Starting on Wed12/23/22 at 1024, Until Wed12/23/22 at 1117, Routine, Intra-op [facility] simethicone (GAS RELIEF (SIMETHICON E)) 40 mg/0.6 mL drops 2022-03 0-04 15:24: 00 12-23 16:17 :54 No PRN, Starting on Wed12/23/22 at 1024, Until Wed12/23/22 at 1117, Routine, Intra-op [facility] lactated ringers IV infusion 1,000 mL 2022-03 0-04 14:15: 00 12-23 14:15 :00 No 1000mL at 42 mL/hr, 1,000 mL, IV Infusion, ONCE, 1 dose, On Wed12/23/22 at 0915, Routine, DSU Pre-op [facility] lactated ringers IV infusion 1,000 mL 2022-03 0-04 14:15: 00 12-23 14:15 :00 No 1000mL at 42 mL/hr, 1,000 mL, IV Infusion, ONCE, 1 dose, On Wed12/23/22 at 0915, Routine, DSU Pre-op [facility] mv-min/iron /folic/calc ium/vitK (WOMEN'S MULTIVITAMI N ORAL) 2022-03 0-04 13:00: 06 Yes 1{tbl} Take 1 tablet by mouth in the morning. [facility] mv-min/iron /folic/calc ium/vitK (WOMEN'S MULTIVITAMI N ORAL) 2022-03 0-04 13:00: 06 Yes 1{tbl} Take 1 tablet by mouth in the morning. [facility] mv-min/iron /folic/calc ium/vitK (WOMEN'S MULTIVITAMI N ORAL) 2022-03 0-04 13:00: 06 Yes 1{tbl} Take 1 tablet by mouth in the morning. [facility] mv-min/iron /folic/calc ium/vitK (WOMEN'S MULTIVITAMI N ORAL) 2022-03 0-04 13:00: 06 Yes 1{tbl} Take 1 tablet by mouth in the morning. [facility] mv-min/iron /folic/calc ium/vitK (WOMEN'S MULTIVITAMI N ORAL) 2022-03 0 13:00: 06 Yes 1{tbl} Take 1 tablet by mouth in the morning. [facility] mv-min/iron /folic/calc ium/vitK (WOMEN'S MULTIVITAMI N ORAL) 2022-03 0 13:00: 06 Yes 1{tbl} Take 1 tablet by mouth in the morning. [facility] mv-min/iron /folic/calc ium/vitK (WOMEN'S MULTIVITAMI N ORAL) 12-16 16:08: 02 Yes 1{tbl} Take 1 tablet by mouth in the morning. [facility] mv-min/iron /folic/calc ium/vitK (WOMEN'S MULTIVITAMI N ORAL) 12-16 16:08: 02 Yes 1{tbl} Take 1 tablet by mouth in the morning. [facility] mv-min/iron /folic/calc ium/vitK (WOMEN'S MULTIVITAMI N ORAL) 12-01 12:52: 19 Yes 1{tbl} Take 1 tablet by mouth in the morning. [facility] mv-min/iron /folic/calc ium/vitK (WOMEN'S MULTIVITAMI N ORAL) 12-01 12:52: 19 Yes 1{tbl} Take 1 tablet by mouth in the morning. [facility] Cholecalcif sam, Vitamin D3, 1,250 mcg (50,000 unit) capsule 11-27 00:00: 00 Yes [id number] Take 1 capsule by mouth weekly. [facility] Cholecalcif sam, Vitamin D3, 1,250 mcg (50,000 unit) capsule 11-27 00:00: 00 Yes [id number] Take 1 capsule by mouth weekly. [facility] Cholecalcif sam, Vitamin D3, 1,250 mcg (50,000 unit) capsule 0 11-27 00:00: 00 Yes [id number] Take 1 capsule by mouth weekly. [facility] Cholecalcif sam, Vitamin D3, 1,250 mcg (50,000 unit) capsule 0 11-27 00:00: 00 Yes [id number] Take 1 capsule by mouth weekly. [facility] Cholecalcif sam, Vitamin D3, 1,250 mcg (50,000 unit) capsule 11-27 00:00: 00 Yes [id number] Take 1 capsule by mouth weekly. [facility] Cholecalcif sam, Vitamin D3, 1,250 mcg (50,000 unit) capsule 11-27 00:00: 00 Yes [id number] Take 1 capsule by mouth weekly. [facility] Cholecalcif sam, Vitamin D3, 1,250 mcg (50,000 unit) capsule 11-27 00:00: 00 Yes [id number] Take 1 capsule by mouth weekly. [facility] Cholecalcif sam, Vitamin D3, 1,250 mcg (50,000 unit) capsule 0 11-27 00:00: 00 Yes [id number] Take 1 capsule by mouth weekly. [facility] Cholecalcif sam, Vitamin D3, 1,250 mcg (50,000 unit) capsule 0 11-27 00:00: 00 Yes [id number] Take 1 capsule by mouth weekly. [facility] Cholecalcif sam, Vitamin D3, 1,250 mcg (50,000 unit) capsule 0 11-27 00:00: 00 Yes [id number] Take 1 capsule by mouth weekly. [facility] Cholecalcif sam, Vitamin D3, 1,250 mcg (50,000 unit) capsule 0 11-27 00:00: 00 Yes [id number] Take 1 capsule by mouth weekly. [facility] Cholecalcif sam, Vitamin D3, 1,250 mcg (50,000 unit) capsule 0 11-27 00:00: 00 Yes [id number] Take 1 capsule by mouth weekly. [facility] Cholecalcif sam, Vitamin D3, 1,250 mcg (50,000 unit) capsule 0 11-27 00:00: 00 Yes [id number] Take 1 capsule by mouth weekly. [facility] Cholecalcif sam, Vitamin D3, 1,250 mcg (50,000 unit) capsule 0 11-27 00:00: 00 Yes [id number] Take 1 capsule by mouth weekly. [facility] Cholecalcif sam, Vitamin D3, 1,250 mcg (50,000 unit) capsule 0 11-27 00:00: 00 Yes [id number] Take 1 capsule by mouth weekly. [facility] Cholecalcif sam, Vitamin D3, 1,250 mcg (50,000 unit) capsule 11-27 00:00: 00 Yes [id number] Take 1 capsule by mouth weekly. [facility] Cholecalcif sam, Vitamin D3, 1,250 mcg (50,000 unit) capsule 0 11-27 00:00: 00 Yes [id number] Take 1 capsule by mouth weekly. [facility] Cholecalcif sam, Vitamin D3, 1,250 mcg (50,000 unit) capsule 11-27 00:00: 00 02-10 00:00 :00 No [id number] Take 1 capsule by mouth weekly. [facility] meloxicam 15 mg tablet 0 11-20 00:00: 00 12-21 04:59 :00 No [id number] 15mg Take 1 tablet by mouth in the morning for 30 days. [facility] meloxicam 15 mg tablet 0 11-20 00:00: 00 12-21 04:59 :00 No [id number] 15mg Take 1 tablet by mouth in the morning for 30 days. [facility] meloxicam 15 mg tablet 0 11-20 00:00: 00 12-21 04:59 :00 No [id number] 15mg Take 1 tablet by mouth in the morning for 30 days. [facility] meloxicam 15 mg tablet 2022-0 11-20 00:00: 00 12-21 04:59 :00 No [id number] 15mg Take 1 tablet by mouth in the morning for 30 days. [facility] meloxicam 15 mg tablet 2022-0 11-20 00:00: 00 12-21 04:59 :00 No [id number] 15mg Take 1 tablet by mouth in the morning for 30 days. [facility]am [facility] tablet 2022-0 11-20 00:00: 00 12-21 04:59 :00 No [id number] 15mg Take 1 tablet by mouth in the morning for 30 days. [facility] meloxicam 15 mg tablet 2022-0 11-20 00:00: 00 12-21 04:59 :00 No [id number] 15mg Take 1 tablet by mouth in the morning for 30 days. [facility] meloxicam 15 mg tablet 2022-0 11-20 00:00: 00 12-21 04:59 :00 No [id number] 15mg Take 1 tablet by mouth in the morning for 30 days. [facility] meloxicam 15 mg tablet 0 11-20 00:00: 00 12-21 04:59 :00 No [id number] 15mg Take 1 tablet by mouth in the morning for 30 days. [facility] meloxicam 15 mg tablet 2022-0 11-20 00:00: 00 12-21 04:59 :00 No [id number] 15mg Take 1 tablet by mouth in the morning for 30 days. [facility] mg tablet 2022-0 11-20 00:00: 00 12-21 04:59 :00 No [id number] 15mg Take 1 tablet by mouth in the morning for 30 days. [facility] meloxicam 15 mg tablet 2022-0 11-20 00:00: 00 12-21 04:59 :00 No [id number] 15mg Take 1 tablet by mouth in the morning for 30 days. [facility]am 15 mg tablet 11-20 00:00: 00 12-21 04:59 :00 No [id number] 15mg Take 1 tablet by mouth in the morning for 30 days. [facility] sodium,pota ssium,mag sulfates 17.5-3.13-1 .6 gram 8 00:00: 00 11-20 04:59 :00 No 117mL Take 117 mL by mouth once now for 1 dose. [facility] sodium,pota ssium,mag sulfates 17.5-3.13-1 .6 gram 11-19 00:00: 00 11-20 04:59 :00 No 117mL Take 117 mL by mouth once now for 1 dose. [facility] Cholecalcif sam, Vitamin D3, 1,250 mcg (50,000 unit) capsule 10-29 00:00: 00 12-19 04:59 :00 No [id number] Take 1 capsule by mouth weekly for 8 doses. [facility] Cholecalcif sam, Vitamin D3, 1,250 mcg (50,000 unit) capsule 10-29 00:00: 00 12-19 04:59 :00 No [id number] Take 1 capsule by mouth weekly for 8 doses. [facility] Cholecalcif sam, Vitamin D3, 1,250 mcg (50,000 unit) capsule 10-29 00:00: 00 12-19 04:59 :00 No [id number] Take 1 capsule by mouth weekly for 8 doses. [facility] Cholecalcif sam, Vitamin D3, 1,250 mcg (50,000 unit) capsule 10-29 00:00: 00 12-19 04:59 :00 No [id number] Take 1 capsule by mouth weekly for 8 doses. [facility] Cholecalcif sam, Vitamin D3, 1,250 mcg (50,000 unit) capsule 8 00:00: 00 12-19 04:59 :00 No [id number] Take 1 capsule by mouth weekly for 8 doses. [facility] Cholecalcif sam, Vitamin D3, 1,250 mcg (50,000 unit) capsule 10-29 00:00: 00 12-19 04:59 :00 No [id number] Take 1 capsule by mouth weekly for 8 doses. [facility] Cholecalcif sam, Vitamin D3, 1,250 mcg (50,000 unit) capsule 10-29 00:00: 00 12-19 04:59 :00 No [id number] Take 1 capsule by mouth weekly for 8 doses. [facility] Cholecalcif sam, Vitamin D3, 1,250 mcg (50,000 unit) capsule 10-29 00:00: 00 12-19 04:59 :00 No [id number] Take 1 capsule by mouth weekly for 8 doses. [facility] Cholecalcif sam, Vitamin D3, 1,250 mcg (50,000 unit) capsule 10-29 00:00: 00 12-19 04:59 :00 No [id number] Take 1 capsule by mouth weekly for 8 doses. [facility] Cholecalcif sam, Vitamin D3, 1,250 mcg (50,000 unit) capsule 10-29 00:00: 00 12-19 04:59 :00 No [id number] Take 1 capsule by mouth weekly for 8 doses. [facility] Cholecalcif sam, Vitamin D3, 1,250 mcg (50,000 unit) capsule 10-29 00:00: 00 11-27 00:00 :00 No [id number] Take 1 capsule by mouth weekly for 8 doses. [facility] Cholecalcif sam, Vitamin D3, 1,250 mcg (50,000 unit) capsule 10-29 00:00: 00 11-27 00:00 :00 No [id number] Take 1 capsule by mouth weekly for 8 doses. [facility] Cholecalcif sam, Vitamin D3, 1,250 mcg (50,000 unit) capsule 10-29 00:00: 00 11-27 00:00 :00 No [id number] Take 1 capsule by mouth weekly for 8 doses. [facility] Cholecalcif sam, Vitamin D3, 1,250 mcg (50,000 unit) capsule 10-29 00:00: 00 11-27 00:00 :00 No [id number] Take 1 capsule by mouth weekly for 8 doses. [facility] mv-min/iron /folic/calc ium/vitK (WOMEN'S MULTIVITAMI N ORAL) 10-27 14:53: 00 Yes 1{tbl} Take 1 tablet by mouth in the morning. [facility] mv-min/iron /folic/calc ium/vitK (WOMEN'S MULTIVITAMI N ORAL) 10-27 14:53: 00 Yes 1{tbl} Take 1 tablet by mouth in the morning. [facility] mv-min/iron /folic/calc ium/vitK (WOMEN'S MULTIVITAMI N ORAL) 10-27 14:53: 00 Yes 1{tbl} Take 1 tablet by mouth in the morning. [facility] mv-min/iron /folic/calc ium/vitK (WOMEN'S MULTIVITAMI N ORAL) 10-27 14:53: 00 Yes 1{tbl} Take 1 tablet by mouth in the morning. [facility] mv-min/iron /folic/calc ium/vitK (WOMEN'S MULTIVITAMI N ORAL) 10-27 14:53: 00 Yes 1{tbl} Take 1 tablet by mouth in the morning. [facility] mv-min/iron /folic/calc ium/vitK (WOMEN'S MULTIVITAMI N ORAL) 10-27 14:53: 00 Yes 1{tbl} Take 1 tablet by mouth in the morning. [facility] mv-min/iron /folic/calc ium/vitK (WOMEN'S MULTIVITAMI N ORAL) 10-27 14:53: 00 Yes 1{tbl} Take 1 tablet by mouth in the morning. [facility] mv-min/iron /folic/calc ium/vitK (WOMEN'S MULTIVITAMI N ORAL) 10-27 14:53: 00 Yes 1{tbl} Take 1 tablet by mouth in the morning. [facility] mv-min/iron /folic/calc ium/vitK (WOMEN'S MULTIVITAMI N ORAL) 10-27 14:53: 00 Yes 1{tbl} Take 1 tablet by mouth in the morning. [facility] mv-min/iron /folic/calc ium/vitK (WOMEN'S MULTIVITAMI N ORAL) 10-27 14:53: 00 Yes 1{tbl} Take 1 tablet by mouth in the morning. [facility] mv-min/iron /folic/calc ium/vitK (WOMEN'S MULTIVITAMI N ORAL) 10-27 14:53: 00 Yes 1{tbl} Take 1 tablet by mouth in the morning. [facility] mv-min/iron /folic/calc ium/vitK (WOMEN'S MULTIVITAMI N ORAL) 10-27 14:53: 00 Yes 1{tbl} Take 1 tablet by mouth in the morning. [facility] mv-min/iron /folic/calc ium/vitK (WOMEN'S MULTIVITAMI N ORAL) 10-27 14:53: 00 Yes 1{tbl} Take 1 tablet by mouth in the morning. [facility] mv-min/iron /folic/calc ium/vitK (WOMEN'S MULTIVITAMI N ORAL) 10-27 14:53: 00 Yes 1{tbl} Take 1 tablet by mouth in the morning. [facility] mv-min/iron /folic/calc ium/vitK (WOMEN'S MULTIVITAMI N ORAL) 10-27 14:53: 00 Yes 1{tbl} Take 1 tablet by mouth in the morning. [facility] mv-min/iron /folic/calc ium/vitK (WOMEN'S MULTIVITAMI N ORAL) 2022-0 08 14:53: 00 Yes 1{tbl} Take 1 tablet by mouth in the morning. [facility] Immunizations Ordered Immunization Name Filled Immunization Name Date Status Comments Source SARS-COV-2 COVID-19 MODERNA 0.5ML BOOSTER VACCINE 2021-05-19 00:00:00 Completed [facility] SARS-COV-2 COVID-19 MODERNA 0.5ML BOOSTER VACCINE 2021-05-19 00:00:00 Completed [facility] SARS-COV-2 COVID-19 MODERNA 0.5ML BOOSTER VACCINE 2021-05-19 00:00:00 Completed [facility] SARS-COV-2 COVID-19 MODERNA 0.5ML BOOSTER VACCINE 2021-05-19 00:00:00 Completed [facility] SARS-COV-2 COVID-19 MODERNA 0.5ML BOOSTER VACCINE 2021-05-19 00:00:00 Completed [facility] SARS-COV-2 COVID-19 MODERNA 0.5ML BOOSTER VACCINE 2021-05-19 00:00:00 Completed [facility] SARS-COV-2 COVID-19 MODERNA 0.5ML BOOSTER VACCINE 2021-05-19 00:00:00 Completed [facility] SARS-COV-2 COVID-19 MODERNA 0.5ML BOOSTER VACCINE 2021-05-19 00:00:00 Completed [facility] SARS-COV-2 COVID-19 MODERNA 0.5ML BOOSTER VACCINE 2021-05-19 00:00:00 Completed [facility] SARS-COV-2 COVID-19 MODERNA 0.5ML BOOSTER VACCINE 2021-05-19 00:00:00 Completed [facility] SARS-COV-2 COVID-19 MODERNA 0.5ML BOOSTER VACCINE 2021-05-19 00:00:00 Completed [facility] SARS-COV-2 COVID-19 MODERNA 0.5ML BOOSTER VACCINE 2021-05-19 00:00:00 Completed [facility] SARS-COV-2 COVID-19 MODERNA 0.5ML BOOSTER VACCINE 2021-05-19 00:00:00 Completed [facility] SARS-COV-2 COVID-19 MODERNA 0.5ML BOOSTER VACCINE 2021-05-19 00:00:00 Completed [facility] SARS-COV-2 COVID-19 MODERNA 0.5ML BOOSTER VACCINE 2021-05-19 00:00:00 Completed [facility] SARS-COV-2 COVID-19 MODERNA 0.5ML BOOSTER VACCINE 2021-05-19 00:00:00 Completed [facility] SARS-COV-2 COVID-19 MODERNA 0.5ML BOOSTER VACCINE 2021-05-19 00:00:00 Completed [facility] SARS-COV-2 COVID-19 MODERNA 0.5ML BOOSTER VACCINE 2020-11-09 00:00:00 Completed [facility] SARS-COV-2 COVID-19 MODERNA 0.5ML BOOSTER VACCINE 2020-11-09 00:00:00 Completed [facility] SARS-COV-2 COVID-19 MODERNA 0.5ML BOOSTER VACCINE 2020-11-09 00:00:00 Completed [facility] SARS-COV-2 COVID-19 MODERNA 0.5ML BOOSTER VACCINE 2020-11-09 00:00:00 Completed [facility] SARS-COV-2 COVID-19 MODERNA 0.5ML BOOSTER VACCINE 2020-11-09 00:00:00 Completed [facility] SARS-COV-2 COVID-19 MODERNA 0.5ML BOOSTER VACCINE 2020-11-09 00:00:00 Completed [facility] SARS-COV-2 COVID-19 MODERNA 0.5ML BOOSTER VACCINE 2020-11-09 00:00:00 Completed [facility] SARS-COV-2 COVID-19 MODERNA 0.5ML BOOSTER VACCINE 2020-11-09 00:00:00 Completed [facility] SARS-COV-2 COVID-19 MODERNA 0.5ML BOOSTER VACCINE 2020-11-09 00:00:00 Completed [facility] SARS-COV-2 COVID-19 MODERNA 0.5ML BOOSTER VACCINE 2020-11-09 00:00:00 Completed [facility] SARS-COV-2 COVID-19 MODERNA 0.5ML BOOSTER VACCINE 2020-11-09 00:00:00 Completed [facility] SARS-COV-2 COVID-19 MODERNA 0.5ML BOOSTER VACCINE 2020-11-09 00:00:00 Completed [facility] SARS-COV-2 COVID-19 MODERNA 0.5ML BOOSTER VACCINE 2020-11-09 00:00:00 Completed [facility] SARS-COV-2 COVID-19 MODERNA 0.5ML BOOSTER VACCINE 2020-11-09 00:00:00 Completed [facility] SARS-COV-2 COVID-19 MODERNA 0.5ML BOOSTER VACCINE 2020-11-09 00:00:00 Completed [facility] SARS-COV-2 COVID-19 MODERNA 0.5ML BOOSTER VACCINE 2020-11-09 00:00:00 Completed [facility] SARS-COV-2 COVID-19 MODERNA 0.5ML BOOSTER VACCINE 2020-11-09 00:00:00 Completed [facility] SARS-COV-2 COVID-19 MODERNA 0.5ML BOOSTER VACCINE Unknown Completed [facility] SARS-COV-2 COVID-19 MODERNA 0.5ML BOOSTER VACCINE Unknown Completed [facility] SARS-COV-2 COVID-19 MODERNA 0.5ML BOOSTER VACCINE Unknown Completed [facility] SARS-COV-2 COVID-19 MODERNA 0.5ML BOOSTER VACCINE Unknown Completed [facility] SARS-COV-2 COVID-19 MODERNA 0.5ML BOOSTER VACCINE Unknown Completed [facility] SARS-COV-2 COVID-19 MODERNA 0.5ML BOOSTER VACCINE Unknown Completed [facility] SARS-COV-2 COVID-19 MODERNA 0.5ML BOOSTER VACCINE Unknown Completed [facility] SARS-COV-2 COVID-19 MODERNA 0.5ML BOOSTER VACCINE Unknown Completed [facility] Influenza Virus Vaccine,quad Im,preserve Free 65+ (FLUAD) Unknown Completed [facility] SARS-COV-2 COVID-19 MODERNA 0.5ML BOOSTER VACCINE Unknown Completed [facility] SARS-COV-2 COVID-19 MODERNA 0.5ML BOOSTER VACCINE Unknown Completed [facility] Influenza Virus Vaccine,quad Im,preserve Free 65+ (FLUAD) Unknown Completed [facility] SARS-COV-2 COVID-19 MODERNA 0.5ML BOOSTER VACCINE Unknown Completed [facility] SARS-COV-2 COVID-19 MODERNA 0.5ML BOOSTER VACCINE Unknown Completed [facility] SARS-COV-2 COVID-19 MODERNA 0.5ML BOOSTER VACCINE Unknown Completed [facility] SARS-COV-2 COVID-19 MODERNA 0.5ML BOOSTER VACCINE Unknown Completed [facility] Influenza Virus Vaccine,quad Im,preserve Free 65+ (FLUAD) Unknown Completed [facility] SARS-COV-2 COVID-19 MODERNA 0.5ML BOOSTER VACCINE Unknown Completed [facility] SARS-COV-2 COVID-19 MODERNA 0.5ML BOOSTER VACCINE Unknown Completed [facility] SARS-COV-2 COVID-19 MODERNA 0.5ML BOOSTER VACCINE Unknown Completed [facility] SARS-COV-2 COVID-19 MODERNA 0.5ML BOOSTER VACCINE Unknown Completed [facility] Influenza Virus Vaccine,quad Im,preserve Free 65+ (FLUAD) Unknown Completed [facility] SARS-COV-2 COVID-19 MODERNA 0.5ML BOOSTER VACCINE Unknown Completed [facility] SARS-COV-2 COVID-19 MODERNA 0.5ML BOOSTER VACCINE Unknown Completed [facility] Influenza Virus Vaccine,quad Im,preserve Free 65+ (FLUAD) Unknown Completed [facility] SARS-COV-2 COVID-19 MODERNA 0.5ML BOOSTER VACCINE Unknown Completed [facility] SARS-COV-2 COVID-19 MODERNA 0.5ML BOOSTER VACCINE Unknown Completed [facility] Influenza Virus Vaccine,quad Im,preserve Free 65+ (FLUAD) Unknown Completed [facility] SARS-COV-2 COVID-19 MODERNA 0.5ML BOOSTER VACCINE Unknown Completed [facility] SARS-COV-2 COVID-19 MODERNA 0.5ML BOOSTER VACCINE Unknown Completed [facility] Influenza Virus Vaccine,quad Im,preserve Free 65+ (FLUAD) Unknown Completed [facility] SARS-COV-2 COVID-19 MODERNA 0.5ML BOOSTER VACCINE Unknown Completed [facility] SARS-COV-2 COVID-19 MODERNA 0.5ML BOOSTER VACCINE Unknown Completed [facility] Influenza Virus Vaccine,quad Im,preserve Free 65+ (FLUAD) Unknown Completed [facility] SARS-COV-2 COVID-19 MODERNA 0.5ML BOOSTER VACCINE Unknown Completed [facility] SARS-COV-2 COVID-19 MODERNA 0.5ML BOOSTER VACCINE Unknown Completed [facility] Influenza Virus Vaccine,quad Im,preserve Free 65+ (FLUAD) Unknown Completed [facility] SARS-COV-2 COVID-19 MODERNA 0.5ML BOOSTER VACCINE Unknown Completed [facility] SARS-COV-2 COVID-19 MODERNA 0.5ML BOOSTER VACCINE Unknown Completed [facility] Influenza Virus Vaccine,quad Im,preserve Free 65+ (FLUAD) Unknown Completed [facility] SARS-COV-2 COVID-19 MODERNA 0.5ML BOOSTER VACCINE Unknown Completed [facility] SARS-COV-2 COVID-19 MODERNA 0.5ML BOOSTER VACCINE Unknown Completed [facility] Influenza Virus Vaccine,quad Im,preserve Free 65+ (FLUAD) Unknown Completed [facility] SARS-COV-2 COVID-19 MODERNA 0.5ML BOOSTER VACCINE Unknown Completed [facility] SARS-COV-2 COVID-19 MODERNA 0.5ML BOOSTER VACCINE Unknown Completed [facility] Influenza Virus Vaccine,quad Im,preserve Free 65+ (FLUAD) Unknown Completed [facility] SARS-COV-2 COVID-19 MODERNA 0.5ML BOOSTER VACCINE Unknown Completed [facility] SARS-COV-2 COVID-19 MODERNA 0.5ML BOOSTER VACCINE Unknown Completed [facility] SARS-COV-2 COVID-19 MODERNA 0.5ML BOOSTER VACCINE Unknown Completed [facility] Influenza Virus Vaccine,quad Im,preserve Free 65+ (FLUAD) Unknown Completed [facility] SARS-COV-2 COVID-19 MODERNA 0.5ML BOOSTER VACCINE Unknown Completed [facility] SARS-COV-2 COVID-19 MODERNA 0.5ML BOOSTER VACCINE Unknown Completed [facility] SARS-COV-2 COVID-19 MODERNA 0.5ML BOOSTER VACCINE Unknown Completed [facility] Influenza Virus Vaccine,quad Im,preserve Free 65+ (FLUAD) Unknown Completed [facility] SARS-COV-2 COVID-19 MODERNA 0.5ML BOOSTER VACCINE Unknown Completed [facility] SARS-COV-2 COVID-19 MODERNA 0.5ML BOOSTER VACCINE Unknown Completed [facility] Influenza Virus Vaccine,quad Im,preserve Free 65+ (FLUAD) Unknown Completed [facility] SARS-COV-2 COVID-19 MODERNA 0.5ML BOOSTER VACCINE Unknown Completed [facility] SARS-COV-2 COVID-19 MODERNA 0.5ML BOOSTER VACCINE Unknown Completed [facility] Influenza Virus Vaccine,quad Im,preserve Free 65+ (FLUAD) Unknown Completed [facility] SARS-COV-2 COVID-19 MODERNA 0.5ML BOOSTER VACCINE Unknown Completed [facility] SARS-COV-2 COVID-19 MODERNA 0.5ML BOOSTER VACCINE Unknown Completed [facility] SARS-COV-2 COVID-19 MODERNA 0.5ML BOOSTER VACCINE Unknown Completed [facility] SARS-COV-2 COVID-19 MODERNA 0.5ML BOOSTER VACCINE Unknown Completed [facility] SARS-COV-2 COVID-19 MODERNA 0.5ML BOOSTER VACCINE Unknown Completed [facility] SARS-COV-2 COVID-19 MODERNA 0.5ML BOOSTER VACCINE Unknown Completed [facility] SARS-COV-2 COVID-19 MODERNA 0.5ML BOOSTER VACCINE Unknown Completed [facility] SARS-COV-2 COVID-19 MODERNA 0.5ML BOOSTER VACCINE Unknown Completed [facility] SARS-COV-2 COVID-19 MODERNA 0.5ML BOOSTER VACCINE Unknown Completed [facility] SARS-COV-2 COVID-19 MODERNA 0.5ML BOOSTER VACCINE Unknown Completed [facility] Vital Signs Vital Name Observation Time Observation Value Comments S ource Systolic blood pressure 2023-04-01 19:10:00 118 mm[Hg] [facility] Diastolic blood pressure 2023-04-01 19:10:00 73 mm[Hg] [facility] Heart rate 2023-04-01 19:10:00 78 [facility] 2023-04-01 19:10:00 18 /min [facility] Body height 2023-04-01 19:10:00 [facility].4 cm [facility] 2023-04-01 19:10:00 56.972 kg [facility] BMI 2023-04-01 19:10:00 24.53 kg/m2 [facility] Oxygen saturation in Arterial blood by Pulse oximetry 2023-04-01 19:10:00 99 /min [facility] Systolic blood pressure 2023-03-25 14:37:00 112 mm[Hg] [facility] Diastolic blood pressure 2023-03-25 14:37:00 75 mm[Hg] [facility] Heart rate 2023-03-25 14:37:00 76 /min [facility] Body height 2023-03-25 14:37:00 152.4 cm [facility] 2023-03-25 14:37:00 56.518 kg [facility] BMI 2023-03-25 14:37:00 24.33 kg/m2 [facility] Oxygen saturation in Arterial blood by Pulse oximetry 2023-03-25 14:37:00 100 /min [facility] Systolic blood pressure 2023-03-19 21:15:00 120 mm[Hg] [facility] Diastolic blood pressure 2023-03-19 21:15:00 80 mm[Hg] [facility] Heart rate 2023-03-19 21:15:00 101 /min [facility] Body temperature 2023-03-19 21:15:00 37.22 Yolanda [facility] Respiratory rate 2023-03-19 21:15:00 16 /min [facility] Body height 2023-03-19 21:15:00 152.4 cm [facility] Body weight 2023-03-19 21:15:00 58.514 kg [facility] BMI 2023-03-19 21:15:00 25.19 kg/m2 [facility] Oxygen saturation in Arterial blood by Pulse oximetry 2023-03-19 21:15:00 97 /min [facility] Systolic blood pressure 2023-03-02 19:21:00 112 mm[Hg] [facility] Diastolic blood pressure 2023-03-02 19:21:00 72 mm[Hg] [facility] Heart rate 2023-03-02 19:21:00 74 /min [facility] Body height 2023-03-02 19:21:00 152.4 cm [facility] 2023-03-02 19:21:00 57.153 kg [facility] BMI 2023-03-02 19:21:00 24.61 kg/m2 [facility] Oxygen saturation in Arterial blood by Pulse oximetry 2023-03-02 19:21:00 97 /min [facility] Systolic blood pressure 2023-01-05 14:12:00 108 mm[Hg] [facility] Diastolic blood pressure 2023-01-05 14:12:00 62 mm[Hg] [facility] Heart rate 2023-01-05 14:12:00 67 /min [facility] Body temperature 2023-01-05 14:12:00 36.44 Yolanda [facility] Respiratory rate 2023-01-05 14:12:00 18 /min [facility] Body height 2023-01-05 14:12:00 152.4 cm [facility] Body weight 2023-01-05 14:12:00 56.745 kg [facility] BMI 2023-01-05 14:12:00 24.43 kg/m2 [facility] Oxygen saturation in Arterial blood by Pulse oximetry 2023-01-05 14:12:00 99 /min [facility] Heart rate 2022-12-23 16:50:00 59 /min [facility] Oxygen saturation in Arterial blood by Pulse oximetry 2022-12-23 16:50:00 92 /min [facility] Respiratory rate 2022-12-23 16:45:00 8 /min [facility] Systolic blood pressure 2022-12-23 16:43:00 140 mm[Hg] [facility] Diastolic blood pressure 2022-12-23 16:43:00 85 mm[Hg] [facility] Body temperature 2022-12-23 16:11:00 36.11 Yolanda [facility] Body height 2022-12-16 21:15:00 152.4 cm [facility] Body weight 2022-12-16 21:15:00 54.432 kg [facility] BMI 2022-12-16 21:15:00 23.44 kg/m2 [facility] Systolic blood pressure 2022-12-23 14:03:00 112 mm[Hg] [facility] Diastolic blood pressure 2022-12-23 14:03:00 69 mm[Hg] [facility] Heart rate 2022-12-23 14:03:00 71 /min [facility] Body temperature 2022-12-23 14:03:00 36.44 Yolanda [facility] Respiratory rate 2022-12-23 14:03:00 17 /min [facility] Oxygen saturation in Arterial blood by Pulse oximetry 2022-12-23 14:03:00 97 /min [facility] Body weight 2022-12-16 21:15:00 54.432 kg [facility] BMI 2022-12-16 21:15:00 23.44 kg/m2 [facility] Body height 2022-12-16 21:15:00 152.4 cm [facility] Systolic blood pressure 2022-11-27 14:43:00 108 mm[Hg] [facility] Diastolic blood pressure 2022-11-27 14:43:00 66 mm[Hg] [facility] Heart rate 2022-11-27 14:43:00 67 /min [facility] Body temperature 2022-11-27 14:43:00 36.56 Yolanda [facility] Respiratory rate 2022-11-27 14:43:00 18 /min [facility] Body height 2022-11-27 14:43:00 152.4 cm [facility] Body weight 2022-11-27 14:43:00 55.929 kg [facility] BMI 2022-11-27 14:43:00 24.08 kg/m2 [facility] Oxygen saturation in Arterial blood by Pulse oximetry 2022-11-27 14:43:00 97 /min [facility] Body height 2022-11-20 13:02:00 152.4 cm [facility] Body weight 2022-11-20 13:02:00 55.203 kg [facility] BMI 2022-11-20 13:02:00 23.77 kg/m2 [facility] Systolic blood pressure 2022-10-27 19:45:00 114 mm[Hg] [facility] Diastolic blood pressure 2022-10-27 19:45:00 72 mm[Hg] [facility] Heart rate 2022-10-27 19:45:00 79 /min [facility] Respiratory rate 2022-10-27 19:45:00 18 /min [facility] Body height 2022-10-27 19:45:00 152.4 cm [facility] Body weight 2022-10-27 19:45:00 55.43 kg [facility] BMI 2022-10-27 19:45:00 23.87 kg/m2 [facility] Oxygen saturation in Arterial blood by Pulse oximetry 2022-10-27 19:45:00 98 /min [facility] Procedures Procedure Date / Time Performed Performing Clinician Source POCT MOLECULAR FLU 2023-03-19 21:36:00 Unknown, Attend ing [facility] FLU VACC(),65+YR,0.5 ML,IM,ADJUVANTED,QUAD(FLU AD) 2023-01-05 14:29:08 Trang Zuñiga [facility] BI ULTRASOUND BREAST COMPLETE RIGHT 2022-12-30 16:02:37 Trang Zuñiga [facility] COLONOSCOPY 2022-12-23 15:08:00 Joana Gutierrez [facility] COLONOSCOPY (ENDO) 2022-12-23 14:58:49 Trang Romo [facility] COLONOSCOPY (ENDO) 2022-12-23 14:58:49 Trang Romo [facility] DAY SURGERY - ADC 2022-12-23 05:01:00 Doctor Radha ssigned, [place] [facility] INSURANCE CORRESPONDENCE 2022-12-15 05:01:00 Doc tor Unassigned, [place] [facility] XR LUMBAR SPINE 3 VW 2022-11-27 16:30:49 Trang West [facility] XR SPINE THORACIC 3 VW 2022-11-27 16:30:49 Trang Abarca [facility] XR CERVICAL SPINE 3 VW 2022-11-27 16:30:49 Trang Abarca [facility] DEXA AXIAL (HIP AND SPINE) 2022-11-26 16:49:36 Trang Zuñiga [facility] XR KNEE 3 VW BILATERAL 2022-11-20 13:26:02 Dirk Cruz [facility] ASSIGNMENT OF BENEFITS 2022-10-27 19:35:12 Docto r Unassigned, [place] [facility] Encounters Start Date/Time End Date/Time Encounter Type Admission Type Attending Clinicians Care Facility Care Department Encounter ID Source 2022-12-01 08:53:01 Outpatient JOANA GUTIERREZ [facility] [id number] [facility] 2023-05-03 09:15:00 2023-05-03 09:15:00 Outpatient TRANG PARSON [facility] [id number] [facility] 2023-04-30 10:40:00 2023-04-30 10:40:00 Outpatient TRANG PARSON [facility] [id number] [facility] 2023-04-15 08:40:00 2023-04-15 08:40:00 Outpatient YANDY CASEY CHRISTINE [facility] [id number] [facility] 2023-04-06 00:00:00 2023-04-06 00:00:00 Outpatient TRANG PARSON [facility] [id number] [facility] 2023-04-01 14:45:00 2023-04-01 15:00:00 Records Management Assistant Visit Lab, John Zuñiga CotyTrang Yann [facility] 1..840.114 350.1.13.10 4.2.7.2.686 [id number] [facility] 2023-04-01 14:20:00 2023-04-01 14:34:11 Outpatient R ZARA COTYTRANG [facility] [id number] [facility] 2023-04-01 14:20:00 2023-04-01 14:34:11 Office Visit Zara CotyTrang Yann [facility] 1.840.114 350.1.13.10 4.2.7.2.686 [id number] [facility] 2023-03-25 08:40:00 2023-03-25 09:04:17 Outpatient R KAMARJeffYANDY [facility] [id number] [facility] 2023-03-25 08:40:00 2023-03-25 09:04:17 [facility] 1..840.114 350.1.13.10 4.2.7.2.686 [id number] [facility] 2023-03-19 15:40:00 2023-03-19 16:00:52 Outpatient R EVA ANDERSEN [facility] [id number] [facility] 2023-03-19 15:40:00 2023-03-19 16:00:00 Urgent Care Eva Andersen Unknown, Attending [facility] 1.840.114 350.1.13.10 4.2.7.2.686 [id number] [facility] 2023-03-02 14:34:21 2023-03-02 23:59:00 Outpatient R YANDY FERRARA [facility] [id number] [facility] 2023-03-02 14:34:21 2023-03-02 23:59:00 Hospital Encounter [facility] JANNA?[facility] 1.840.114 350.1.13.10 4.2.7.2.686 [id number] [facility] 2023-03-02 13:20:00 2023-03-02 14:31:01 Office Visit Yandy Ferrara [facility] JANNA?[facility] 1.84.114 350.1.13.10 4.2.7.2.686 [id number] [facility] 2023-02-26 10:20:00 2023-02-26 10:20:00 Outpatient R TRANG ZUÑIGA [facility] [id number] [facility] 2023-02-26 10:20:00 2023-02-26 10:20:00 Outpatient R TRANG ZUÑIGA [facility] [id number] [facility] 2023-02-08 00:00:00 2023-02-08 00:00:00 Refill Trang Zuñiga [facility] JANNA?[facility] 1.840.114 350.1.13.10 4.2.7.2.686 [id number] [facility] 2023-02-07 00:00:00 2023-02-07 00:00:00 Refill Trang Zuñiga [facility] JANNA?[facility] 1.840.114 350.1.13.10 4.2.7.2.686 [id number] [facility] 2023-02-03 14:15:00 2023-02-03 14:15:00 Outpatient R TAYLOR DAHL CRAIG [facility] [id number] [facility] 2023-01-12 00:00:00 2023-01-12 00:00:00 Outpatient R TRANG ZUÑIGA [facility] [id number] [facility] 2023-01-05 09:00:00 2023-01-05 09:36:42 Outpatient R TRANG ZUÑIGA [facility] [id number] [facility] 2023-01-05 09:00:00 2023-01-05 09:36:42 Office Visit Trang Zuñiga [facility] 1.2.840.114 350.1.13.10 4.2.7.2.686 [id number] [facility] 2023-01-05 00:00:00 2023-01-05 00:00:00 Telephone DeannaEri [facility] 1.2.840.114 350.1.13.10 4.2.7.2.686 [id number] [facility] 2023-01-04 15:00:00 2023-01-04 15:00:00 Outpatient R PRASHANTH CRUZ [facility] [id number] [facility] 2022-12-30 10:34:16 2022-12-30 23:59:00 Hospital Encounter Trang Zuñiga [facility] 1.2.840.114 350.1.13.10 4.2.7.2.686 [id number] [facility] 2022-12-30 10:33:46 2022-12-30 10:33:00 Outpatient R TRANG ZUÑIGA [facility] [id number] [facility] 2022-12-30 10:30:00 2022-12-30 10:33:00 Hospital Encounter Trang Zuñiga [facility] 1.2.840.114 350.1.13.10 4.2.7.2.686 [id number] [facility] 2022-12-23 09:01:00 2022-12-23 11:50:00 Outpatient R JOANA GUTIERREZ [facility] [id number] [facility] 2022-12-23 09:01:00 2022-12-23 11:50:00 Hospital Encounter Brenda, Joana [facility] 1.2.840.114 350.1.13.10 4.2.7.2.686 [id number] [facility] 2022-12-23 09:57:00 2022-12-23 10:51:00 Surgery Brenda [facility] 1.2.840.114 350.1.13.10 4.2.7.2.686 [id number] [facility] 2022-12-23 00:00:00 2022-12-23 00:00:00 Orders Only Doctor Unassigned, [place] [facility] 1.2.840.114 350.1.13.10 4.2.7.2.686 [id number] [facility] 2022-12-21 00:00:00 2022-12-21 00:00:00 Patient Secure Msg Doctor Unassigned, [place] [facility] 1.2.840.114 350.1.13.10 4.2.7.2.686 [id number] [facility] 2022-12-15 00:00:00 2022-12-15 00:00:00 Orders Only Doctor Unassigned, [place] [facility] 1.2.840.114 350.1.13.10 4.2.7.2.686 [id number] [facility] 2022-12-14 00:00:00 2022-12-14 00:00:00 Telephone Trang Zuñiga [facility] 1.2.840.114 350.1.13.10 4.2.7.2.686 [id number] [facility] 2022-12-08 00:00:00 2022-12-08 00:00:00 Case Management Trang Zuñiga [facility] 1.2.840.114 350.1.13.10 4.2.7.2.686 [id number] [facility] 2022-12-03 00:00:00 2022-12-03 00:00:00 Patient Secure Msg Doctor Unassigned, [place] [facility] 1.2.840.114 350.1.13.10 4.2.7.2.686 [id number] [facility] 2022-11-28 00:00:00 2022-11-28 00:00:00 Patient Secure Msg Doctor Unassigned, [place] [facility] 1.2.840.114 350.1.13.10 4.2.7.2.686 [id number] [facility] 2022-11-27 10:57:30 2022-11-27 23:59:00 Hospital Encounter Trang Zuñiga [facility] 1.2.840.114 350.1.13.10 4.2.7.2.686 [id number] [facility] 2022-11-27 09:40:00 2022-11-27 10:14:20 Office Visit Trang Zuñiga [facility] 1.2.840.114 350.1.13.10 4.2.7.2.686 [id number] [facility] 2022-11-27 09:40:00 2022-11-27 10:14:20 Outpatient R ZARA , TRANG [facility] [id number] [facility] 2022-11-26 11:07:38 2022-11-26 23:59:00 Hospital Encounter Trang Zuñiga [facility] 1.84114 350.1.13.10 4.2.7.2.686 [id number] [facility] 2022-11-26 11:07:38 2022-11-26 23:59:00 Outpatient R TRANG ZUÑIGA [facility] [id number] [facility] 2022-11-26 11:07:16 2022-11-26 23:59:00 Hospital Encounter Zara Trang [facility] 1.84.114 350.1.13.10 4.2.7.2.686 [id number] [facility] 2022-11-26 11:07:16 2022-11-26 23:59:00 Outpatient R ZARA COTYTRANG [facility] [id number] [facility] 2022-11-20 08:10:00 2022-11-20 23:59:00 Outpatient R PRASHANTH CRUZ [facility] [id number] [facility] 2022-11-20 08:10:00 2022-11-20 23:59:00 Hospital Encounter Magalys [facility] JANNA?AYSHA [facility] BUILD[facility] 1.84.114 350.1.13.10 4.2.7.2.686 [id number] [facility] 2022-11-20 08:00:00 2022-11-20 08:30:00 Office Visit Magalys [facility] JANNA?[facility] 1.84.114 350.1.13.10 4.2.7.2.686 [id number] [facility] 2022-11-17 00:00:00 2022-11-17 00:00:00 Telephone Brenda Joana [facility] BU[facility] 1.84.114 350.1.13.10 4.2.7.2.686 [id number] [facility] 2022-11-17 00:00:00 2022-11-17 00:00:00 Patient Secure Msg Doctor Unassigned, [place] [facility] 1.84.114 350.1.13.10 4.2.7.2.686 [id number] [facility] 2022-11-16 00:00:00 2022-11-16 00:00:00 Telephone Trang Zuñiga [facility] 1.84.114 350.1.13.10 4.2.7.2.686 [id number] [facility] 2022-11-13 09:20:00 2022-11-13 09:20:00 Outpatient R TRANG ZUÑIGA [facility] [id number] [facility] 2022-10-29 00:00:00 2022-10-29 00:00:00 Case Management Trang Zuñiga [facility]?AYSHA [facility] 1.84.114 350.1.13.10 4.2.7.2.686 [id number] [facility] 2022-10-27 16:00:00 2022-10-27 16:15:00 Records Management Assistant Visit Lab, Trang Padilla [facility] 1.84.114 350.1.13.10 4.2.7.2.686 [id number] [facility] 2022-10-27 15:00:00 2022-10-27 15:25:46 Outpatient R ZARA TRANG [facility] [id number] [facility] 2022-10-27 15:00:00 2022-10-27 15:25:46 Office Visit [place] , [facility] 1.2.840.114 350.1.13.10 4.2.7.2.686 [id number] [facility] 2022-10-27 00:00:00 2022-10-27 00:00:00 Orders Only Doctor Unassigned, [place] [facility] 1.2.840.114 350.1.13.10 4.2.7.2.686 [id number] [facility] Results Test Description Test Time Test Comments Results Result Co mments Source [facility] Notes Date/Time Note Provider Source 2023-04-01 14:45:00 gojQK8NHttS/hJZyUr4M YOrbsKJ1KoScKn /wnMtfu5aHL0cOwdr3CclOynMpfyqk7309 -01-11T14:45:00 Images from the original note were not included.Venipuncture collection performed by clean technique on the left anticubitus. Total of 1 attempts were made. Slight pressure and a bandage/dressing were applied to the site(s). The patient experienced no complications. The following specimens were processed according to instructions and sent to [facility] laboratories per lab order on TODAY:LT BLUESST 1REDLAVPPTDK GREEN (LiHep)DK GREEN (SodH)GRAYDK BLUE (K2)DK BLUE (S)ACDBlood CultureNIPT/NTD 08567-2Qfnzy QgxoOK6596-66-19C93:42:10Nurse NoteTXT1.2.840.810922.1.13.104.2.7 .2.424374|[id number] for patient glkx77434-0Jbzfs NoteLNNARRATIVEFormatted C-CDA narrative text[address] Ya[id number] 96NORPLKKITHHHRBEJZFZCOF2151-42-33 T14:42:101.2.840.323106.1.72.3.15| 1.2.840.951879.1.13.104.2.7.2.7278 [id number] [facility] 2022-11-19 10:57:26 TSB/EY6EvR48n+pFDAIz 0p2zSYXaYx+YQb VxQZhz0wCl3Qoarwm3sLZahZVqDv1e9629 -08-31T10:57:26 Images from the original note were not included.Instructions sent via email per request. Suprep Bowel Prep Instructions To prepare for the examination, you will need to completely clean out your bowels. Please follow the instructions carefully. You must have a responsible adult bring you, stay and drive you home the day of the procedure. You will NOT be allowed to travel home alone or in a Taxi, Bus or Uber. You will need to buy: Suprep (by prescription - prescription will be sent to your pharmacy Dulcolax 5mg tablets (You will need 4)-Can be purchased over the counter Medications: You may need to change your medication routine if you take medications such as fish oil, diabetes medication, anti-inflammatory medications, or blood thinners. You may take Tylenol. If you take any of the following blood thinners you need to inform your provider and may require clearance from your relief worker or PCP: Plavix, Coumadin, Effient, Eliquis, Xarelto, Brilinta or Pradaxa One week before the exam: Do not take Iron supplements. Do not eat nuts, corn or popcorn. The day before the exam: 12/22/22 NO SOLID FOOD, MILK OR CREAM PRODUCTS Drink only clear liquids all day (breakfast, lunch, and dinner). Clear liquids include chicken/beef broth, jello, pulp-less fruit Juice, black coffee (no creamer), tea, soft drinks, yue elke, Gatorade, PowerAde, and popsicles. * NOTHING RED, BLUE OR PURPLE* At 4:00 PM take 2 Dulcolax tablets and complete these 4 steps Step 1: Pour one (1) 6-oz bottle of SUPREP liquid into the mixing container Step 2: Add cool drinking water to the 16-oz line on the container and mix Step 3: Drink ALL the liquid in the container Step 4: IMPORTANT- You must drink two (2) more 16-oz containers of water over the next 1 hour At 8:00 PM take 2 Dulcolax tablets Continue to drink clear liquids until midnight, then nothing to eat/drink after midnight except for medications Day of exam: 12/23/22 At 4:00 AM complete these 4 steps Step 1: Pour one (1) 6-oz bottle of SUPREP liquid into the mixing container Step 2: Add cool drinking water to the 16-oz line on the container and mix Step 3: Drink ALL the liquid in the container Step 4: IMPORTANT- You must drink two (2) more 16-oz containers of water over the next 1 hour; must be completed at least 2 hours prior to your colonoscopy Do not eat or drink anything the rest of the morning (if you are scheduled later afternoon you can remain on clear liquids until 2 hours prior to arrival time for procedure). You may take your medications with a small sip of water. NO CHEWING GUM OR HARD CANDY 99532-3Twzlgwhle encounter MvaqNC4341-39-30R32:59:17Telephone encounter NoteTXT1.2.840.654569.1.13.104.2.7 .2.568672|[id number] for patient owwv99893-7OlofBXIUGLNFFQ[address] ToflWzomrmocqYfymoiosjQJUO34571291 08AISVNLLZEOCCUHIXVYDMHQ6273-13-74 T10:59:171.2.840.622701.1.72.3.15| 1.2.840.083334.1.13.104.2.7.2.7278 [id number] [facility] 2022-11-18 11:53:48 2H+ZBPyuJ3Z1qry+1sMA J3cfo7UHk/dUZw 4uNg0SWkPbGvNRKN+cHV4IbeyPsfZl4965 -08-30T11:53:48 Patient scheduled on [place] with Dr. Gutierrez12/23/2022No Auth Required.Colonoscopy Direct Scheduling Screening Check List We have received a referral from your doctor for a colonoscopy. Do you know what a colonoscopy is? Answer: Screening colonoscopy is a service performed by a licensed physician under anesthesia. The provider uses a flexible lighted tube called a colonoscope that is inserted into the rectum and the entire colon to look for polyps and cancer. People under the age of 75 qualify for screening colonoscopy exams. Are you 75 years of age or younger?Yes- We will continue with a screening questionnaire to determine if you qualify for a screening colonoscopy or if you will need further evaluation by a medical provider 1- Are you interested in getting a colonoscopy? Yes; we will proceed with some screening questions to determine next steps 2- Have you had a colonoscopy before? Date of last scope: 20 Years ago. Results: "Some Polyps"3- Do you have any of the following symptoms: No symptoms reported4- Do you take any of the medications listed below? Does not take blood thinning medications5- How often do you have a bowel movement during the week?1- dailyPatient has answered "no" to all parts of questions #3 and #4 above, and will be added to our queue for screening colonoscopies and provided with instructions for a bowel prep. (See below) How would you like us to send you your bowel prep instructions? Other, email - [email or web address] you please confirm what pharmacy you would like your bowel prep sent to? [id number] [place] - [address] [place] [address] [facility]: [phone] encounter PcekFA7612-74-90P98:27:08Telephone encounter NoteTXT1.2.840.298278.1.13.104.2.7 .2.617166|[id number] for patient lypc50171-0JhhbHV906652119Nykghl N Cerda[id number] 28ICVCONESMQMHIKVPIWQHVT5489-99-69 T12:27:081.2.840.895780.1.72.3.15| 1.2.840.509542.1.13.104.2.7.2.7278 [id number] Shanita Cerda [facility] 2022-11-17 11:52:46 [facility]/l2ei80o1VhzdU62R JIZNhD0AxpVi6c nWbdFwaZ95upQLD8AUyVoUb5E6FjZk8912 -08-29T11:52:46 [place]Trang Z[place] [address]-2Gcbffwhki encounter RldgMW6409-92-76T24:54:50Telephone encounter NoteTXT1.2.840.434443.1.13.104.2.7 .2.340491|[id number] for patient bvpp18077-0AqtgFVLITEGFLD[id number] 97ILMBDICWVJCUXMMARNEELW5275-10-11 T11:54:501.2.840.666650.1.72.3.15| 1.2.840.354127.1.13.104.2.7.2.7278 [id number] [facility] 2022-11-16 14:17:07 YPTFeZZ5azUR+jwVWUlB n2cOGMVpzKFlH5 uZ44GBzUb82TZYinJYl6Oj73iy6PXa2211 -08-28T14:17:07 I do not see a GI referral. Please advise. 24737-7Pfgltvjnq encounter FvnpDH7209-79-70M59:17:28Telephone encounter NoteTXT1.2.840.538833.1.13.104.2.7 .2.124363|[id number] for patient rpko21410-0WjdpVZ385701389Zsqblvv M Fisher [id number] 13TIZXPKGEPCFXYQQMROMHJQ5824-08-88 T14:17:281.2.840.113141.1.72.3.15| 1.2.840.912370.1.13.104.2.7.2.7278 [id number] Dominique Griffith [facility] 2022-11-16 14:07:48 /R9pvi1ONB3PH2cl/s6+ ydvFRDLEK1m3nJ AXsvzMt40EzD/TBgt47TMm0+BdabZ55717 -08-28T14:07:48 Pt is checking the status of the colonoscopy referral placed by DR ZUÑIGA. 76781-5Ilsoennov encounter NjjyUJ2803-89-49W67:09:25Telephone encounter NoteTXT1.2.840.624364.1.13.104.2.7 .2.851749|[id number] for patient axmo18461-6YqfhIX66717126Tszgo J [id number] 98BVPMHOKNTBOBVJSMCNGWEZ7084-67-71 T14:09:251.2.840.355553.1.72.3.15| 1.2.840.300028.1.13.104.2.7.2.7278 [id number] Genesis Allred [facility] 2022-10-27 16:00:00 pyA+S5PFJwkwLtV4FJqZ EdIWxPFUJjntkK bmZKr+2ewn5xyb9sNFcYRHpZQpKNnu1558 -08-08T16:00:00 Images from the original note were not included.Venipuncture collection performed by clean technique on the left anticubitus. Total of 1 attempts were made. Slight pressure and a bandage/dressing were applied to the site(s). The patient experienced no complications. The following specimens were processed according to instructions and sent to [facility] laboratories per lab order on today:today LT BLUE SST 4 RED LAV 1 PPT DK GREEN (LiHep) DK GREEN (SodH) CAZARES DK BLUE (K2) DK BLUE (S) ACD Blood Culture NIPT/NTD 92019-5Ogcpv BhbaVZ4176-39-49X39:59:31Nurse NoteTXT1.2.840.893358.1.13.104.2.7 .2.149199|[id number] for patient qpuv13003-3Tndvl NoteLNUT[address] ArbiMfoaoookzDwtfsihjaHIGW35901230 00SCOZNVRUUQPRRNBKWZGOKY5915-23-38 T15:59:311.2.840.712399.1.72.3.15| 1.2.840.046856.1.13.104.2.7.2.7278 [id number] [facility]
--- NOTE | 2023-04-04 12:36 | RAD REPORT ---
EXAM DESCRIPTION: CT - Head C Spine Cap Jamila Con - 04/04/2023 11:58 am CLINICAL HISTORY: Head and neck injury with chest and abdominal pain status post fall TECHNIQUE: Computed axial tomography of head, neck, chest, abdomen and pelvis obtained. IV and oral contrast not requested. Coronal and sagittal reconstruction performed. All CT scans are performed using dose optimization technique as appropriate and may include automated exposure control or mA/KV adjustment according to patient size. COMPARISON: CT abdomen 2020 FINDINGS: An intracranial bleed is not seen. The ventricles are normal in caliber. An extra-axial fluid collection is not noted. Fluid within the sinuses/mastoids is not seen. A cervical fracture is not seen. No dislocation is noted. The evaluation of mediastinum, eze, vessels, solid organs and bowel are limited secondary to the lac k of contrast administration. A mediastinal hematoma is not noted. A pleural effusion is not seen. A lung contusion is not present. The liver,spleen, pancreas, adrenals,kidneys and bladder do not demonstrate an acute traumatic injury Scoliosis. Small nonobstructing renal calculi. Left parapelvic renal cysts. Hepatic cyst. Small ingui nal hernias IMPRESSION: No acute intracranial abnormality is seen. A cervical fracture is not visualized. If the patient continues to have symptoms to suggest intracran ial/spinal cord pathology MRI be recommended No acute traumatic abnormality involving the chest, abdomen or pelvis
--- NOTE | 2023-04-04 14:21 | ER ---
Nurse's Notes [facility] Name: Venus Kenny Age: 67 yrs Sex: Female : 1955 Arrival Date: 04/04/2023 Time: 11:20 Bed 4 Private MD: Diagnosis: Fall (on) (from) other stairs and steps;Unspecified injury of head, initial encounter;Contusion of front wall of thorax;Osteoarthritis of knee, unspecified Presentation: 04/04 11:32 Chief complaint: Lost balance descending cement steps yesterday, landed at bottom on hb left side. Negative LOC. Reports pain 10/10 in left head, face, shoulder, flank, and left hip. Coronavirus screen: At this time, the client does not indicate any symptoms associated with coronavirus-19. Ebola Screen: No symptoms or risks identified at this time. Initial Sepsis Screen: Does the patient meet any 2 criteria? No. Patient's initial sepsis screen is negative. Does the patient have a suspected source of infection? No. Patient's initial sepsis screen is negative. Risk Assessment: Do you want to hurt yourself or someone else? Patient reports no desire to harm self or others. Onset of symptoms was April 03, 2023. 11:32 Method Of Arrival: Ambulatory hb 11:32 Acuity: BG 3 hb 11:35 Care prior to arrival: None. Mechanism of Injury: Fall down 3 steps. Trauma event hb details: Injury occurred in the [facility], Injury occurred: at home. Injury occurred: April 03, 2023. Trauma Activation: Not Applicable Physician: ED Physician; Name: ; Notified At: ; Arrived At: Physician: General Surgeon; Name: ; Notified At: ; Arrived At: Physician: Radiology; Name: ; Notified At: ; Arrived At: Physician: Respiratory; Name: ; Notified At: ; Arrived At: Physician: Lab; Name: ; Notified At: ; Arrived At: Historical: - Allergies: 11:34 BuSpar; hb 11:34 Iodinated Contrast Media - IV Dye; hb - PMHx: 11:34 Diverticulitis; Cancer; hb - PSHx: 11:34 Total abdominal hysterectomy; Tonsillectomy; hb - Immunization history:: Adult Immunizations up to date. - Social history:: Smoking status: Patient denies any tobacco usage or history of. - Immunization history: Last tetanus immunization:. Screenin:35 Abuse screen: Denies threats or abuse. Denies injuries from another. Tuberculosis hb screening: No symptoms or risk factors identified. 11:48 [facility] ED Fall Risk Assessment (Adult) History of falling in the last 3 months, mb9 including since admission Yes- single mechanical fall (1 pt) Confusion or Disorientation No (0 pts) Intoxicated or Sedated No (0 pts) Impaired Gait No (0 pts) Mobility Assist Device Used No (0 pt) Altered Elimination No (0 pt) Score/Fall Risk Level 0 - 2 = Low Risk Oriented to surroundings, Maintained a safe environment, Educated pt \T\ family on fall prevention, incl call for assistance when getting out of bed. 12:00 Nutritional screening: No deficits noted. mb9 Primary Survey: 11:35 NO uncontrolled hemorrhage observed. A: The client is awake and alert. The airway is hb patent. Breathing/Chest: Spontaneous respiratory effort, equal unlabored respirations, breath sounds clear bilaterally, regular pattern, symmetrical chest rise and fall. Circulation: No external hemorrhage present. Regular and strong central pulse, skin warm/dry/normal color. Disability Client is alert. Exposure/Environment: There is no evidence of uncontrolled external bleeding. 11:49 Reassessment Alertness and Airway: Awake and alert. The airway is patent. Breathing: mb9 Spontaneous respiratory effort, equal unlabored respirations, breath sounds clear bilaterally, regular pattern with symmetrical chest rise and fall. Circulation: No external hemorrhage noted. Regular and strong central pulse, skin warm/dry/normal color. Disability: Pupils Pupils are equal, round, reactive to light and accomodation. Secondary Survey: 11:48 HEENT: No deficits noted. Gastrointestinal: No deficits noted. : No deficits noted. mb9 Musculoskeletal: Swelling present in right knee. Assessment: 11:48 General: Appears in no apparent distress. Behavior is calm, cooperative. Pain: mb9 Complains of pain in face and right leg. 11:48 Reassessment: pt taken to CT via wheelchair. mb9 13:19 Reassessment: pt able to ambulate to restroom. mb9 14:11 Reassessment: No changes from previously documented assessment. Patient and/or family mb9 updated on plan of care and expected duration. Pain level reassessed. Patient is alert, oriented x 3, equal unlabored respirations, skin warm/dry/pink. Vital Signs: 11:32 BP 128 / 79; Pulse 79; Resp 18; Temp 98.3(O); Pulse Ox 100% on R/A; Weight 56.7 kg; hb Height 5 ft. 0 in. ; Pain 10/10; 12:32 Pulse 65; Resp 18; Pulse Ox 100% on R/A; mb9 14:11 Pulse 73; Resp 16; Pulse Ox 98% on R/A; mb9 11:32 Body Mass Index 24.41 (56.70 kg, 152.4 cm) hb 11:32 Pain Scale: Adult hb Elena Coma Score: 11:35 Eye Response: spontaneous(4). Motor Response: obeys commands(6). Verbal Response: hb oriented(5). Total: 15. Trauma Score (Adult): 11:35 Eye Response: spontaneous(1); Verbal Response: oriented(1); Motor Response: obeys hb commands(2); Systolic BP: > 89 mm Hg(4); Respiratory Rate: 10 to 29 per min(4); Burchard Score: 15; Trauma Score: 12 ED Course: 11:22 Patient arrived in ED. ts1 11:24 [facility]ess[facility]C [facility]. snw 11:24 Nilton Arce MD is Attending Physician. snw 11:34 Triage completed. hb 11:35 Patient placed. hb 11:35 Patient has correct armband on for positive identification. hb 11:35 Patient maintains SpO2 saturation greater than 95% on room air. hb 11:36 Arm band placed on. hb 11:48 Debbie Xiao, BETSY is Primary Nurse. mb9 11:49 Thermoregulation: warm blanket given to patient. mb9 12:00 CT Traumagram (Head C Spine CAP wo con) In Process Unspecified. EDMS 12:32 No provider procedures requiring assistance completed. mb9 14:29 Patient did not have IV access during this emergency room visit. mb9 Administered Medications: 13:23 Drug: Ketorolac IM 15 mg IM once Route: IM; Site: right deltoid; mb9 14:13 Follow up: Response: No adverse reaction mb9 Medication: 11:38 VIS not applicable for this client. hb Outcome: 11:49 Patient's length of stay was not longer than 2 hours. mb9 14:21 Discharge ordered by . issac 14:29 Discharged to home ambulatory, with family, mb9 14:29 Condition: stable 14:29 Discharge instructions given to patient, family, Instructed on discharge instructions, follow up and referral plans. Demonstrated understanding of instructions, follow-up care, medications, Prescriptions given X 2, 14:29 Patient left the ED. mb9 Signatures: Dispatcher [employer] EDMS Yessenia Jean, HYDRO EXCAVATION OPERATOR-C HYDRO EXCAVATION OPERATOR-Csnw Sydney Willson RN RN Debbie Bates RN RN [email or web address] Renee Ricketts, PAS PAS ts1 Corrections: (The following items were deleted from the chart) 11:35 11:34 Allergies: Iodine; hb hb
--- NOTE | 2023-04-04 14:21 | EDPHYS ---
Physician Documentation [facility] Name: Venus Kenny Age: 67 yrs Sex: Female : 1955 Arrival Date: 04/04/2023 Time: 11:20 Bed 4 Private MD: ED Physician Nilton Arce HPI: 04/04 12:37 This 67 yrs old Female presents to ER via Ambulatory with complaints of Fall snw Injury. 12:37 Details of fall: The patient fell from a height, down approximately 3 stairs. Onset: snw The symptoms/episode began/occurred suddenly, yesterday. Associated injuries: The patient sustained injury to the head, injury to the chest, contusion, swelling, tenderness. The patient has not experienced similar symptoms in the past. pt has recently been ill with upper respiratory s/s, went outdoors to get the home ready for freeze and lost balance on the stairs secondary to bilateral knee pain/decreased balance. Feel down three concrete stairs. Denies LOC. Historical: - Allergies: 11:34 BuSpar; hb 11:34 Iodinated Contrast Media - IV Dye; hb - PMHx: 11:34 Diverticulitis; Cancer; hb - PSHx: 11:34 Total abdominal hysterectomy; Tonsillectomy; hb - Immunization history:: Adult Immunizations up to date. - Social history:: Smoking status: Patient denies any tobacco usage or history of. - Immunization history: Last tetanus immunization:. ROS: 12:36 Constitutional: Negative for fever, chills, and weight loss, Eyes: Negative for injury, snw pain, redness, and discharge, ENT: Negative for injury, pain, and discharge, Neck: Negative for injury, pain, and swelling, Cardiovascular: Negative for chest pain, palpitations, and edema, Respiratory: Negative for shortness of breath, cough, wheezing, and pleuritic chest pain, Abdomen/GI: Negative for abdominal pain, nausea, vomiting, diarrhea, and constipation, Back: Negative for injury and pain, : Negative for injury, bleeding, discharge, and swelling, Skin: Negative for injury, rash, and discoloration, Neuro: Negative for headache, weakness, numbness, tingling, and seizure, Psych: Negative for depression, anxiety, suicide ideation, homicidal ideation, and hallucinations, 12:36 MS/extremity: Positive for injury or acute deformity, contusion, tenderness, of the face, left lateral ribs, bilateral knees, Exam: 12:35 Constitutional: This is a well developed, well nourished patient who is awake, alert, snw and in no acute distress. Eyes: Pupils equal round and reactive to light, extra-ocular motions intact. Lids and lashes normal. Conjunctiva and sclera are non-icteric and not injected. Cornea within normal limits. Periorbital areas with no swelling, redness, or edema. ENT: Nares patent. No nasal discharge, no septal abnormalities noted. Tympanic membranes are normal and external auditory canals are clear. Oropharynx with no redness, swelling, or masses, exudates, or evidence of obstruction, uvula midline. Mucous membranes moist. Neck: Trachea midline, no thyromegaly or masses palpated, and no cervical lymphadenopathy. Supple, full range of motion without nuchal rigidity, or vertebral point tenderness. No Meningismus. Chest/axilla: Normal chest wall appearance and motion. Nontender with no deformity. No lesions are appreciated. Cardiovascular: Regular rate and rhythm with a normal S1 and S2. No gallops, murmurs, or rubs. Normal PMI, no JVD. No pulse deficits. Respiratory: Lungs have equal breath sounds bilaterally, clear to auscultation and percussion. No rales, rhonchi or wheezes noted. No increased work of breathing, no retractions or nasal flaring. Abdomen/GI: Soft, non-tender, with normal bowel sounds. No distension or tympany. No guarding or rebound. No evidence of tenderness throughout. Back: No spinal tenderness. No costovertebral tenderness. Full range of motion. Skin: Warm, dry with normal turgor. Normal color with no rashes, no lesions, and no evidence of cellulitis. Neuro: Awake and alert, GCS 15, oriented to person, place, time, and situation. Cranial nerves II-XII grossly intact. Motor strength 5/5 in all extremities. Sensory grossly intact. Cerebellar exam normal. Normal gait. Psych: Awake, alert, with orientation to person, place and time. Behavior, mood, and affect are within normal limits. 12:35 Head/face: Noted is swelling, that is mild, that is moderate, of the left cheek, left eye and left oriental orthodox, 12:35 Musculoskeletal/extremity: ROM: no acute changes, left lateral rib tenderness, bilateral knee edema and chronic discomfort. Vital Signs: 11:32 BP 128 / 79; Pulse 79; Resp 18; Temp 98.3(O); Pulse Ox 100% on R/A; Weight 56.7 kg; hb Height 5 ft. 0 in. ; Pain 10/10; 12:32 Pulse 65; Resp 18; Pulse Ox 100% on R/A; mb9 14:11 Pulse 73; Resp 16; Pulse Ox 98% on R/A; mb9 11:32 Body Mass Index 24.41 (56.70 kg, 152.4 cm) hb 11:32 Pain Scale: Adult hb Sterling Coma Score: 11:35 Eye Response: spontaneous(4). Motor Response: obeys commands(6). Verbal Response: hb oriented(5). Total: 15. Trauma Score (Adult): 11:35 Eye Response: spontaneous(1); Verbal Response: oriented(1); Motor Response: obeys hb commands(2); Systolic BP: > 89 mm Hg(4); Respiratory Rate: 10 to 29 per min(4); Sterling Score: 15; Trauma Score: 12 MDM: 11:28 Patient medically screened. snw 14:23 Differential diagnosis: abrasion, closed head injury, contusion, sprain. Data reviewed: snw vital signs, nurses notes, radiologic studies. I considered the following discharge prescriptions or medication management in the emergency department Medications were administered in the Emergency Department. See MAR. Counseling: I had a detailed discussion with the patient and/or guardian regarding the historical points, exam findings, and any diagnostic results supporting the discharge/admit diagnosis, radiology results, the need for outpatient follow up, to return to the emergency department if symptoms worsen or persist or if there are any questions or concerns that arise at home. Special discussion: Based on the patient's history, exam and DX evaluation, there is no indication for emergent intervention or inpatient TX. It is understood by the patient/guardian that if the SXs persist or worsen they need to return immediately for re-evaluation. Based on the history and exam findings, there is no indication for further emergent testing or inpatient evaluation. I discussed with the patient/guardian the need to see the orthopedic surgeon for further evaluation of the symptoms. I discussed with the patient/guardian the need to see the primary care provider for further evaluation of the symptoms. 04/04 11:29 Order name: CT Traumagram (Head C Spine CAP wo con); Complete Time: 12:39 snw Administered Medications: 13:23 Drug: Ketorolac IM 15 mg IM once Route: IM; Site: right deltoid; mb9 14:13 Follow up: Response: No adverse reaction mb9 Disposition Summary: 04/04/23 14:21 Discharge Ordered Notes: Location: Home snw Condition: Stable snw Diagnosis - Fall (on) (from) other stairs and steps snw - Unspecified injury of head, initial encounter snw - Contusion of front wall of thorax snw - Osteoarthritis of knee, unspecified snw Followup: snw - With: Emergency Department - When: As needed - Reason: Worsening of condition Followup: snw - With: Private Physician - When: 5 - 6 days - Reason: Recheck today's complaints, Continuance of care, Re-evaluation by your physician Discharge Instructions: - Discharge Summary Sheet snw - Arthritis snw - Contusion snw - Head Injury, Adult snw - Fall Prevention in the Home, Adult snw - Osteoarthritis snw - How to Use Cold Therapy snw - Heat Therapy snw Forms: - Medication Reconciliation Form snw - Thank You Letter snw - Antibiotic Education snw - Prescription Opioid Use snw - Patient Portal Instructions snw - Leadership Thank You Letter snw Prescriptions: - Mobic 7.5 mg Oral Tablet - take 1 tablet ORAL route once daily take with food; 20 tablet; Refills: 0, snw Product Selection Permitted - orphenadrine citrate 100 mg Oral Tablet Sustained Release - take 1 tablet ORAL route 2 times per day As needed; 20 tablet; Refills: 0, snw Product Selection Permitted Signatures: Dispatcher [employer] Yessenia Ray FNP-C SEWAGE TREATMENT PLANT OPERATOR-Csnw Sydney Willson RN RN Debbie Bates RN RN mb9 Corrections: (The following items were deleted from the chart) 11:35 11:34 Allergies: Iodine; hb hb
[2023-04-04 14:45] VITALS: BP 128/79; TEMP 98.3; O2SAT 98
== END ==
LOC: ER 11:20
DX: S09.90XA Unspecified injury of head, initial encounter (principal); S20.212A Contusion of left front wall of thorax, initial encounter; M17.0 Bilateral primary osteoarthritis of knee; W10.8XXA Fall (on) (from) other stairs and steps, initial encounter; Z88.8 Allergy status to other drugs, medicaments and biological substances; Z91.041 Radiographic dye allergy status
CPT/HCPCS: 70450; 71250; 72125; 96372; 99285

== ENCOUNTER 2023-09-15 21:10 | Emergency (ER) | payer OTHER ==
--- OUTSIDE RECORDS SUMMARY | 2023-09-15 21:15 | XMS REPORT | Continuity of Care Document ---
Author Name Unknown Address [address] [place] [address] [facility] Address [address] [facility] [place] [address] Care Team Providers Care Case Assembler Name Role Phone TRANG ZUÑIGA Primary Care Physician Unavailable JOANA GUTIERREZ Attending Clinician Unavailable YANDY FERRARA Attending Clinician Unavailable YANDY FERRARA Attending Clinician Unavailable Lea Red Attending Clinician Unav ailable DEVIN NAYAK Attending Clinician Unavailable Devin Nayak MD Attending Clinician [phone] Trang Zuñiga MD Attending Clinician MARCIAL TYLER Attending Clinician Unavailable TRANG ZUÑIGA Attending Clinician Radha vailable Doctor Unassigned, [place] Attending Clinician U navailable Lab, Ang - Db Attending Clinician Unavailable RAIN ANDERSEN Attending Clinician Unavailable Rain Andersen PA-C Attending Clinician [phone] Unknown, Attending Attending Clinician Unavailab TAYLOR Monroe Attending Clinician UnavailTAYLOR Rene Attending Clinician UnavailPRASHANTH Rodriguez Attending Clinician Unavailable Eri Griggs Attending Clinician [phone] Joana Gutierrez MD Attending Clinician Prashanth Haines Attending Clinician [phone] JOANA GUTIERREZ Admitting Clinician Unavailable Lea Red Admitting Clinician Joana Manriquez MD Admitting Clinician [phone] Payers Payer Name Policy Type Policy Number Effective Date Expirati on Date Source [employer] [id number] 2022 00:00:00 Problems Condition Name Condition Details Condition Category Status Onset Date Resolution Date Last Treatment Date Treating Clinician Comments Source Preop cardiovasc ular exam Preop cardiovasc ular exam Disease Active 09-01 00:00: 00 [facility] At risk for falls At risk for falls Disease Active 04-15 00:00: 00 [facility] Unspecifie d abnormalit ies of gait and mobility Unspecifie d abnormalit ies of gait and mobility Disease Active 04-15 00:00: 00 [facility] Encounter for screening colonoscop y Encounter for screening colonoscop y Disease Active 11-17 00:00: 00 [facility] Allergies, Adverse Reactions, Alerts Allergy Name Allergy Type Status Severity Reaction(s) Onset Date Inactive Date Treating Clinician Comments Source Iodinate d Contrast Media DA Active U SWELLING ITCHING 09-13 00:00: 00 [facility] buspiron e DA Active U HIVES 09-13 00:00: 00 [facility] Iodinate d Contrast Media DA Active U SWELLING ITCHING 09-09 00:00: 00 [facility] buspiron e DA Active U HIVES 0 09-09 00:00: 00 [facility] BUSPIRON E DRUG INGREDI Active Med Other-Cmnt 8- 00:00: 00 [facility] IODINE DRUG INGREDI Active Med Hives 8- 00:00: 00 [facility] Buspiron e Propensi ty to adverse reaction s to drug Active Other - See comments 202310-27 00:00: 00 Severe headache [facility] Iodine Drug Allergy Active Itching 10-27 00:00: 00 [facility] NO KNOWN ALLERGIE S Drug Class Active [facility] Social History Social Habit Start Date Stop Date Quantity Comments Source Gender identity [facility] intake 2023-09-02 00:00:00 2023-09-02 00:00:00 Current drinker of alcohol (finding) [facility] Alcohol intake 2023-07-20 00:00:00 2023-07-20 00:00:00 Current drinker of alcohol (finding) [facility] History of Social function 2023-04-01 00:00:00 2023-04-01 00:00:00 [facility] Tobacco use and exposure 2022-10-27 00:00:00 2022-10-27 00:00:00 Smokeless tobacco non-user [facility] Alcohol Comment 2022-10-27 00:00:00 2022-10-27 00:00:00 glass of wine monthly [facility] Sex assigned at 1955 00:00:00 1955 00:00:00 [facility] Smoking Status Start Date Stop Date Source Tobacco smoking consumption unknown [facility] Never smoked tobacco [facility] Medications Ordered Medication Name Filled Medication Name Start Date Stop Date Current Medication? Ordering Clinician Indication Dosage Frequency Signature (SIG) Comments Components Source Cholecalcif trina, Vitamin D3, (VITAMIN D3) 50 mcg (2,000 unit) tablet 08-03 00:00: 00 Yes [id number] 2000U Take 1 tablet by mouth in the morning. [facility] traMADoL 50 mg tablet 08-03 00:00: 00 08-11 04:59 :00 Yes [id number] 50mg Take 1 tablet by mouth every 6 (six) hours as needed for Pain (scale 7-10) for up to 7 days. Indication s: acute pain [facility] DULOXETINE 20 mg capsule 07-27 00:00: 00 Yes [id number] 20mg TAKE 1 CAPSULE BY MOUTH EVERY DAY IN THE MORNING [facility] cyclobenzap rine 10 mg tablet 4-30 00:00: 00 Yes [id number] 5mg Take 0.5-1 tablets by mouth 3 (three) times daily as needed for Muscle Spasms (May make sleepy, do not use before driving). [facility] gabapentin 100 mg capsule 4-30 00:00: 00 09-21 04:59 :00 Yes [id number] Take 1 capsule by mouth 3 (three) times daily for 3 days, THEN 2 capsules 3 (three) times daily for 60 days. [facility] DULoxetine 20 mg capsule 2-06 00:00: 00 07-27 00:00 :00 No [id number] 20mg TAKE 1 CAPSULE BY MOUTH EVERY MORNING [facility] traMADoL 50 mg tablet 1-25 00:00: 00 04-23 05:59 :00 No [id number] 50mg Take 1 tablet by mouth every 6 (six) hours as needed for Pain (scale 7-10) for up to 7 days. Indication s: acute pain [facility] orphenadrin e 100 mg SR tablet 1-14 00:00: 00 04-30 00:00 :00 No TAKE 1 TABLET BY MOUTH TWICE A DAY NEEDED [facility] meloxicam 15 mg tablet 1-11 13:41: 42 Yes 15mg Take 1 tablet by mouth in the morning. [facility] melatonin 3 mg Cap 1-11 00:00: 00 Yes [id number] 3mg Take 3 mg by mouth at bedtime. [facility] melatonin 3 mg tablet 1-11 00:00: 00 Yes 3mg Take 1 tablet by mouth at bedtime. [facility] DULoxetine 20 mg capsule 1-11 00:00: 00 04-27 00:00 :00 No [id number] 20mg Take 1 capsule by mouth in the morning. [facility] predniSONE 20 mg tablet 1-11 00:00: 04-07 05:59 :00 No [id number] 20mg Take 1 tablet by mouth in the morning and 1 tablet in the evening. Do all this for 5 days. [facility] bromphenira mine-pseudo ephedrine-D M (BROMFED DM) 2-30-10 mg/5 mL syrup - 00:00: 00 04-30 00:00 :00 No [id number] 5mL Take 5 mL by mouth 3 (three) times daily as needed for Cough. [facility] benzonatate (TESSALON PERLES) 100 mg capsule 03-25 00:00: 00 04-30 00:00 :00 No [id number] Take 1-2 capsules three times a day as needed for cough. [facility] oseltamivir (TAMIFLU) 75 mg capsule 2022-03 00:00: 00 03-25 05:59 :00 No [id number] 75mg Take 1 capsule by mouth in the morning and 1 capsule in the evening. Do all this for 5 days. [facility] bromphenira mine-pseudo ephedrine-D M (BROMFED DM) 2-30-10 mg/5 mL syrup 2022-03 00:00: 00 03-25 00:00 :00 No [id number] 5mL Take 5 mL by mouth 3 (three) times daily as needed for Cough. [facility] diclofenac 75 mg EC tablet 2022-03 00:00: 00 04-01 00:00 :00 No [id number] 75mg Take 1 tablet by mouth 2 (two) times daily with meals as needed for Pain. [facility] CHOLECALCIF TRINA, VITAMIN D3, 1,250 mcg (50,000 unit) capsule 2022-03 00:00: 00 08-03 00:00 :00 No [id number] TAKE 1 CAPSULE BY MOUTH ONE TIME PER WEEK [facility] meloxicam 15 mg tablet 2022-03 00:00: 00 03-02 00:00 :00 No [id number] 15mg Take 1 tablet by mouth in the morning. [facility] mv-min/iron /folic/calc ium/vitK (WOMEN'S MULTIVITAMI N ORAL) 2022-03 0 09:18: 47 Yes 1{tbl} Take 1 tablet by mouth in the morning. [facility] meloxicam 15 mg tablet 2022-03 00:00: 00 02-10 00:00 :00 No [id number] 15mg Take 1 tablet by mouth in the morning. [facility] water for irrigation irrigation solution 2022-03 004 15:24: 00 12-23 16:17 :54 No PRN, Starting on Wed12/23/22 at 1024, Until Wed12/23/22 at 1117, Routine, Intra-op [facility] simethicone (GAS RELIEF (SIMETHICON E)) 40 mg/0.6 mL drops 2022-03 0 15:24: 00 12-23 16:17 :54 No PRN, Starting on Wed12/23/22 at 1024, Until Wed12/23/22 at 1117, Routine, Intra-op [facility] lactated ringers IV infusion 1,000 mL 2022-03 0 14:15: 00 12-23 14:15 :00 No 1000mL at 42 mL/hr, 1,000 mL, IV Infusion, ONCE, 1 dose, On Wed12/23/22 at 0915, Routine, DSU Pre-op [facility] mv-min/iron /folic/calc ium/vitK (WOMEN'S MULTIVITAMI N ORAL) 2022-03 0- 13:00: 06 Yes 1{tbl} Take 1 tablet by mouth in the morning. [facility] mv-min/iron /folic/calc ium/vitK (WOMEN'S MULTIVITAMI N ORAL) 12-16 16:08: 02 Yes 1{tbl} Take 1 tablet by mouth in the morning. [facility] mv-min/iron /folic/calc ium/vitK (WOMEN'S MULTIVITAMI N ORAL) 12-01 12:52: 19 Yes 1{tbl} Take 1 tablet by mouth in the morning. [facility] Cholecalcif trina, Vitamin D3, 1,250 mcg (50,000 unit) capsule 11-27 00:00: 00 02-10 00:00 :00 No [id number] Take 1 capsule by mouth weekly. [facility] meloxicam 15 mg tablet 11-20 00:00: 00 12-21 04:59 :00 No [id number] 15mg Take 1 tablet by mouth in the morning for 30 days. [facility] sodium,pota ssium,mag sulfates 17.5-3.13-1 .6 gram 11-19 00:00: 00 11-20 04:59 :00 No 117mL Take 117 mL by mouth once now for 1 dose. [facility] Cholecalcif trina, Vitamin D3, 1,250 mcg (50,000 unit) capsule 10-29 00:00: 00 11-27 00:00 :00 No [id number] Take 1 capsule by mouth weekly for 8 doses. [facility] mv-min/iron /folic/calc ium/vitK (WOMEN'S MULTIVITAMI N ORAL) 10-27 14:53: 00 Yes 1{tbl} Take 1 tablet by mouth in the morning. [facility] Immunizations Ordered Immunization Name Filled Immunization Name Date Status Comments Source SARS-COV-2 COVID-19 MODERNA 0.5ML BOOSTER VACCINE 2021-05-19 00:00:00 Completed [facility] SARS-COV-2 COVID-19 MODERNA 0.5ML BOOSTER VACCINE 2021-05-19 00:00:00 Completed [facility] SARS-COV-2 COVID-19 MODERNA 0.5ML BOOSTER VACCINE 2021-05-19 00:00:00 Completed [facility] SARS-COV-2 COVID-19 MODERNA 0.5ML BOOSTER VACCINE 2021-05-19 00:00:00 Completed [facility] SARS-COV-2 COVID-19 MODERNA 0.5ML BOOSTER VACCINE 2021-05-19 00:00:00 Completed [facility] SARS-COV-2 COVID-19 MODERNA 0.5ML BOOSTER VACCINE 2021-05-19 00:00:00 Completed [facility] SARS-COV-2 COVID-19 MODERNA 0.5ML BOOSTER VACCINE 2021-05-19 00:00:00 Completed [facility] SARS-COV-2 COVID-19 MODERNA 0.5ML BOOSTER VACCINE 2021-05-19 00:00:00 Completed [facility] SARS-COV-2 COVID-19 MODERNA 0.5ML BOOSTER VACCINE 2021-05-19 00:00:00 Completed [facility] SARS-COV-2 COVID-19 MODERNA 0.5ML BOOSTER VACCINE 2021-05-19 00:00:00 Completed [facility] SARS-COV-2 COVID-19 MODERNA 0.5ML BOOSTER VACCINE 2021-05-19 00:00:00 Completed [facility] SARS-COV-2 COVID-19 MODERNA 0.5ML BOOSTER VACCINE 2021-05-19 00:00:00 Completed [facility] SARS-COV-2 COVID-19 MODERNA 0.5ML BOOSTER VACCINE 2021-05-19 00:00:00 Completed [facility] SARS-COV-2 COVID-19 MODERNA 0.5ML BOOSTER VACCINE 2021-05-19 00:00:00 Completed [facility] SARS-COV-2 COVID-19 MODERNA 0.5ML BOOSTER VACCINE 2021-05-19 00:00:00 Completed [facility] SARS-COV-2 COVID-19 MODERNA 0.5ML BOOSTER VACCINE 2021-05-19 00:00:00 Completed [facility] SARS-COV-2 COVID-19 MODERNA 0.5ML BOOSTER VACCINE 2021-05-19 00:00:00 Completed [facility] SARS-COV-2 COVID-19 MODERNA 0.5ML BOOSTER VACCINE 2020-11-09 00:00:00 Completed [facility] SARS-COV-2 COVID-19 MODERNA 0.5ML BOOSTER VACCINE 2020-11-09 00:00:00 Completed [facility] SARS-COV-2 COVID-19 MODERNA 0.5ML BOOSTER VACCINE 2020-11-09 00:00:00 Completed [facility] SARS-COV-2 COVID-19 MODERNA 0.5ML BOOSTER VACCINE 2020-11-09 00:00:00 Completed [facility] SARS-COV-2 COVID-19 MODERNA 0.5ML BOOSTER VACCINE 2020-11-09 00:00:00 Completed [facility] SARS-COV-2 COVID-19 MODERNA 0.5ML BOOSTER VACCINE 2020-11-09 00:00:00 Completed [facility] SARS-COV-2 COVID-19 MODERNA 0.5ML BOOSTER VACCINE 2020-11-09 00:00:00 Completed [facility] SARS-COV-2 COVID-19 MODERNA 0.5ML BOOSTER VACCINE 2020-11-09 00:00:00 Completed [facility] SARS-COV-2 COVID-19 MODERNA 0.5ML BOOSTER VACCINE 2020-11-09 00:00:00 Completed [facility] SARS-COV-2 COVID-19 MODERNA 0.5ML BOOSTER VACCINE 2020-11-09 00:00:00 Completed [facility] SARS-COV-2 COVID-19 MODERNA 0.5ML BOOSTER VACCINE 2020-11-09 00:00:00 Completed [facility] SARS-COV-2 COVID-19 MODERNA 0.5ML BOOSTER VACCINE 2020-11-09 00:00:00 Completed [facility] SARS-COV-2 COVID-19 MODERNA 0.5ML BOOSTER VACCINE 2020-11-09 00:00:00 Completed [facility] SARS-COV-2 COVID-19 MODERNA 0.5ML BOOSTER VACCINE 2020-11-09 00:00:00 Completed [facility] SARS-COV-2 COVID-19 MODERNA 0.5ML BOOSTER VACCINE 2020-11-09 00:00:00 Completed [facility] SARS-COV-2 COVID-19 MODERNA 0.5ML BOOSTER VACCINE 2020-11-09 00:00:00 Completed [facility] SARS-COV-2 COVID-19 MODERNA 0.5ML BOOSTER VACCINE 2020-11-09 00:00:00 Completed [facility] SARS-COV-2 COVID-19 MODERNA 0.5ML BOOSTER VACCINE Unknown Completed [facility] SARS-COV-2 COVID-19 MODERNA 0.5ML BOOSTER VACCINE Unknown Completed [facility] SARS-COV-2 COVID-19 MODERNA 0.5ML BOOSTER VACCINE Unknown Completed [facility] SARS-COV-2 COVID-19 MODERNA 0.5ML BOOSTER VACCINE Unknown Completed [facility] SARS-COV-2 COVID-19 MODERNA 0.5ML BOOSTER VACCINE Unknown Completed [facility] SARS-COV-2 COVID-19 MODERNA 0.5ML BOOSTER VACCINE Unknown Completed [facility] SARS-COV-2 COVID-19 MODERNA 0.5ML BOOSTER VACCINE Unknown Completed [facility] SARS-COV-2 COVID-19 MODERNA 0.5ML BOOSTER VACCINE Unknown Completed [facility] Influenza Virus Vaccine,quad Im,preserve Free 65+ (FLUAD) Unknown Completed [facility] SARS-COV-2 COVID-19 MODERNA 0.5ML BOOSTER VACCINE Unknown Completed [facility] SARS-COV-2 COVID-19 MODERNA 0.5ML BOOSTER VACCINE Unknown Completed [facility] Influenza Virus Vaccine,quad Im,preserve Free 65+ (FLUAD) Unknown Completed [facility] SARS-COV-2 COVID-19 MODERNA 0.5ML BOOSTER VACCINE Unknown Completed [facility] SARS-COV-2 COVID-19 MODERNA 0.5ML BOOSTER VACCINE Unknown Completed [facility] SARS-COV-2 COVID-19 MODERNA 0.5ML BOOSTER VACCINE Unknown Completed [facility] SARS-COV-2 COVID-19 MODERNA 0.5ML BOOSTER VACCINE Unknown Completed [facility] Influenza Virus Vaccine,quad Im,preserve Free 65+ (FLUAD) Unknown Completed [facility] SARS-COV-2 COVID-19 MODERNA 0.5ML BOOSTER VACCINE Unknown Completed [facility] SARS-COV-2 COVID-19 MODERNA 0.5ML BOOSTER VACCINE Unknown Completed [facility] SARS-COV-2 COVID-19 MODERNA 0.5ML BOOSTER VACCINE Unknown Completed [facility] SARS-COV-2 COVID-19 MODERNA 0.5ML BOOSTER VACCINE Unknown Completed [facility] Influenza Virus Vaccine,quad Im,preserve Free 65+ (FLUAD) Unknown Completed [facility] SARS-COV-2 COVID-19 MODERNA 0.5ML BOOSTER VACCINE Unknown Completed [facility] SARS-COV-2 COVID-19 MODERNA 0.5ML BOOSTER VACCINE Unknown Completed [facility] Influenza Virus Vaccine,quad Im,preserve Free 65+ (FLUAD) Unknown Completed [facility] SARS-COV-2 COVID-19 MODERNA 0.5ML BOOSTER VACCINE Unknown Completed [facility] SARS-COV-2 COVID-19 MODERNA 0.5ML BOOSTER VACCINE Unknown Completed [facility] Influenza Virus Vaccine,quad Im,preserve Free 65+ (FLUAD) Unknown Completed [facility] SARS-COV-2 COVID-19 MODERNA 0.5ML BOOSTER VACCINE Unknown Completed [facility] SARS-COV-2 COVID-19 MODERNA 0.5ML BOOSTER VACCINE Unknown Completed [facility] Influenza Virus Vaccine,quad Im,preserve Free 65+ (FLUAD) Unknown Completed [facility] SARS-COV-2 COVID-19 MODERNA 0.5ML BOOSTER VACCINE Unknown Completed [facility] SARS-COV-2 COVID-19 MODERNA 0.5ML BOOSTER VACCINE Unknown Completed [facility] Influenza Virus Vaccine,quad Im,preserve Free 65+ (FLUAD) Unknown Completed [facility] SARS-COV-2 COVID-19 MODERNA 0.5ML BOOSTER VACCINE Unknown Completed [facility] SARS-COV-2 COVID-19 MODERNA 0.5ML BOOSTER VACCINE Unknown Completed [facility] Influenza Virus Vaccine,quad Im,preserve Free 65+ (FLUAD) Unknown Completed [facility] SARS-COV-2 COVID-19 MODERNA 0.5ML BOOSTER VACCINE Unknown Completed [facility] SARS-COV-2 COVID-19 MODERNA 0.5ML BOOSTER VACCINE Unknown Completed [facility] Influenza Virus Vaccine,quad Im,preserve Free 65+ (FLUAD) Unknown Completed [facility] SARS-COV-2 COVID-19 MODERNA 0.5ML BOOSTER VACCINE Unknown Completed [facility] SARS-COV-2 COVID-19 MODERNA 0.5ML BOOSTER VACCINE Unknown Completed [facility] Influenza Virus Vaccine,quad Im,preserve Free 65+ (FLUAD) Unknown Completed [facility] SARS-COV-2 COVID-19 MODERNA 0.5ML BOOSTER VACCINE Unknown Completed [facility] SARS-COV-2 COVID-19 MODERNA 0.5ML BOOSTER VACCINE Unknown Completed [facility] Influenza Virus Vaccine,quad Im,preserve Free 65+ (FLUAD) Unknown Completed [facility] SARS-COV-2 COVID-19 MODERNA 0.5ML BOOSTER VACCINE Unknown Completed [facility] SARS-COV-2 COVID-19 MODERNA 0.5ML BOOSTER VACCINE Unknown Completed [facility] SARS-COV-2 COVID-19 MODERNA 0.5ML BOOSTER VACCINE Unknown Completed [facility] Influenza Virus Vaccine,quad Im,preserve Free 65+ (FLUAD) Unknown Completed [facility] SARS-COV-2 COVID-19 MODERNA 0.5ML BOOSTER VACCINE Unknown Completed [facility] SARS-COV-2 COVID-19 MODERNA 0.5ML BOOSTER VACCINE Unknown Completed [facility] SARS-COV-2 COVID-19 MODERNA 0.5ML BOOSTER VACCINE Unknown Completed [facility] Influenza Virus Vaccine,quad Im,preserve Free 65+ (FLUAD) Unknown Completed [facility] SARS-COV-2 COVID-19 MODERNA 0.5ML BOOSTER VACCINE Unknown Completed [facility] SARS-COV-2 COVID-19 MODERNA 0.5ML BOOSTER VACCINE Unknown Completed [facility] Influenza Virus Vaccine,quad Im,preserve Free 65+ (FLUAD) Unknown Completed [facility] SARS-COV-2 COVID-19 MODERNA 0.5ML BOOSTER VACCINE Unknown Completed [facility] SARS-COV-2 COVID-19 MODERNA 0.5ML BOOSTER VACCINE Unknown Completed [facility] Influenza Virus Vaccine,quad Im,preserve Free 65+ (FLUAD) Unknown Completed [facility] SARS-COV-2 COVID-19 MODERNA 0.5ML BOOSTER VACCINE Unknown Completed [facility] SARS-COV-2 COVID-19 MODERNA 0.5ML BOOSTER VACCINE Unknown Completed [facility] Influenza Virus Vaccine,quad Im,preserve Free 65+ (FLUAD) Unknown Completed [facility] SARS-COV-2 COVID-19 MODERNA 0.5ML BOOSTER VACCINE Unknown Completed [facility] SARS-COV-2 COVID-19 MODERNA 0.5ML BOOSTER VACCINE Unknown Completed [facility] SARS-COV-2 COVID-19 MODERNA 0.5ML BOOSTER VACCINE Unknown Completed [facility] SARS-COV-2 COVID-19 MODERNA 0.5ML BOOSTER VACCINE Unknown Completed [facility] Influenza Virus Vaccine,quad Im,preserve Free 65+ (FLUAD) Unknown Completed [facility] SARS-COV-2 COVID-19 MODERNA 0.5ML BOOSTER VACCINE Unknown Completed [facility] SARS-COV-2 COVID-19 MODERNA 0.5ML BOOSTER VACCINE Unknown Completed [facility] Influenza Virus Vaccine,quad Im,preserve Free 65+ (FLUAD) Unknown Completed [facility] SARS-COV-2 COVID-19 MODERNA 0.5ML BOOSTER VACCINE Unknown Completed [facility] SARS-COV-2 COVID-19 MODERNA 0.5ML BOOSTER VACCINE Unknown Completed [facility] Influenza Virus Vaccine,quad Im,preserve Free 65+ (FLUAD) Unknown Completed [facility] SARS-COV-2 COVID-19 MODERNA 0.5ML BOOSTER VACCINE Unknown Completed [facility] SARS-COV-2 COVID-19 MODERNA 0.5ML BOOSTER VACCINE Unknown Completed [facility] SARS-COV-2 COVID-19 MODERNA 0.5ML BOOSTER VACCINE Unknown Completed [facility] Influenza Virus Vaccine,quad Im,preserve Free 65+ (FLUAD) Unknown Completed [facility] SARS-COV-2 COVID-19 MODERNA 0.5ML BOOSTER VACCINE Unknown Completed [facility] SARS-COV-2 COVID-19 MODERNA 0.5ML BOOSTER VACCINE Unknown Completed [facility] SARS-COV-2 COVID-19 MODERNA 0.5ML BOOSTER VACCINE Unknown Completed [facility] Influenza Virus Vaccine,quad Im,preserve Free 65+ (FLUAD) Unknown Completed [facility] SARS-COV-2 COVID-19 MODERNA 0.5ML BOOSTER VACCINE Unknown Completed [facility] SARS-COV-2 COVID-19 MODERNA 0.5ML BOOSTER VACCINE Unknown Completed [facility] Influenza Virus Vaccine,quad Im,preserve Free 65+ (FLUAD) Unknown Completed [facility] SARS-COV-2 COVID-19 MODERNA 0.5ML BOOSTER VACCINE Unknown Completed [facility] SARS-COV-2 COVID-19 MODERNA 0.5ML BOOSTER VACCINE Unknown Completed [facility] Influenza Virus Vaccine,quad Im,preserve Free 65+ (FLUAD) Unknown Completed [facility] SARS-COV-2 COVID-19 MODERNA 0.5ML BOOSTER VACCINE Unknown Completed [facility] SARS-COV-2 COVID-19 MODERNA 0.5ML BOOSTER VACCINE Unknown Completed [facility] Influenza Virus Vaccine,quad Im,preserve Free 65+ (FLUAD) Unknown Completed [facility] SARS-COV-2 COVID-19 MODERNA 0.5ML BOOSTER VACCINE Unknown Completed [facility] SARS-COV-2 COVID-19 MODERNA 0.5ML BOOSTER VACCINE Unknown Completed [facility] Influenza Virus Vaccine,quad Im,preserve Free 65+ (FLUAD) Unknown Completed [facility] SARS-COV-2 COVID-19 MODERNA 0.5ML BOOSTER VACCINE Unknown Completed [facility] SARS-COV-2 COVID-19 MODERNA 0.5ML BOOSTER VACCINE Unknown Completed [facility] Influenza Virus Vaccine,quad Im,preserve Free 65+ (FLUAD) Unknown Completed [facility] SARS-COV-2 COVID-19 MODERNA 0.5ML BOOSTER VACCINE Unknown Completed [facility] SARS-COV-2 COVID-19 MODERNA 0.5ML BOOSTER VACCINE Unknown Completed [facility] Influenza Virus Vaccine,quad Im,preserve Free 65+ (FLUAD) Unknown Completed [facility] SARS-COV-2 COVID-19 MODERNA 0.5ML BOOSTER VACCINE Unknown Completed [facility] SARS-COV-2 COVID-19 MODERNA 0.5ML BOOSTER VACCINE Unknown Completed [facility] Influenza Virus Vaccine,quad Im,preserve Free 65+ (FLUAD) Unknown Completed [facility] SARS-COV-2 COVID-19 MODERNA 0.5ML BOOSTER VACCINE Unknown Completed [facility] SARS-COV-2 COVID-19 MODERNA 0.5ML BOOSTER VACCINE Unknown Completed [facility] Influenza Virus Vaccine,quad Im,preserve Free 65+ (FLUAD) Unknown Completed [facility] SARS-COV-2 COVID-19 MODERNA 0.5ML BOOSTER VACCINE Unknown Completed [facility] SARS-COV-2 COVID-19 MODERNA 0.5ML BOOSTER VACCINE Unknown Completed [facility] Influenza Virus Vaccine,quad Im,preserve Free 65+ (FLUAD) Unknown Completed [facility] SARS-COV-2 COVID-19 MODERNA 0.5ML BOOSTER VACCINE Unknown Completed [facility] SARS-COV-2 COVID-19 MODERNA 0.5ML BOOSTER VACCINE Unknown Completed [facility] SARS-COV-2 COVID-19 MODERNA 0.5ML BOOSTER VACCINE Unknown Completed [facility] Influenza Virus Vaccine,quad Im,preserve Free 65+ (FLUAD) Unknown Completed [facility] SARS-COV-2 COVID-19 MODERNA 0.5ML BOOSTER VACCINE Unknown Completed [facility] SARS-COV-2 COVID-19 MODERNA 0.5ML BOOSTER VACCINE Unknown Completed [facility] Influenza Virus Vaccine,quad Im,preserve Free 65+ (FLUAD) Unknown Completed [facility] SARS-COV-2 COVID-19 MODERNA 0.5ML BOOSTER VACCINE Unknown Completed [facility] SARS-COV-2 COVID-19 MODERNA 0.5ML BOOSTER VACCINE Unknown Completed [facility] SARS-COV-2 COVID-19 MODERNA 0.5ML BOOSTER VACCINE Unknown Completed [facility] Influenza Virus Vaccine,quad Im,preserve Free 65+ (FLUAD) Unknown Completed [facility] SARS-COV-2 COVID-19 MODERNA 0.5ML BOOSTER VACCINE Unknown Completed [facility] SARS-COV-2 COVID-19 MODERNA 0.5ML BOOSTER VACCINE Unknown Completed [facility] Influenza Virus Vaccine,quad Im,preserve Free 65+ (FLUAD) Unknown Completed [facility] SARS-COV-2 COVID-19 MODERNA 0.5ML BOOSTER VACCINE Unknown Completed [facility] SARS-COV-2 COVID-19 MODERNA 0.5ML BOOSTER VACCINE Unknown Completed [facility] Influenza Virus Vaccine,quad Im,preserve Free 65+ (FLUAD) Unknown Completed [facility] SARS-COV-2 COVID-19 MODERNA 0.5ML BOOSTER VACCINE Unknown Completed [facility] SARS-COV-2 COVID-19 MODERNA 0.5ML BOOSTER VACCINE Unknown Completed [facility] Influenza Virus Vaccine,quad Im,preserve Free 65+ (FLUAD) Unknown Completed [facility] SARS-COV-2 COVID-19 MODERNA 0.5ML BOOSTER VACCINE Unknown Completed [facility] SARS-COV-2 COVID-19 MODERNA 0.5ML BOOSTER VACCINE Unknown Completed [facility] Influenza Virus Vaccine,quad Im,preserve Free 65+ (FLUAD) Unknown Completed [facility] SARS-COV-2 COVID-19 MODERNA 0.5ML BOOSTER VACCINE Unknown Completed [facility] SARS-COV-2 COVID-19 MODERNA 0.5ML BOOSTER VACCINE Unknown Completed [facility] Influenza Virus Vaccine,quad Im,preserve Free 65+ (FLUAD) Unknown Completed [facility] SARS-COV-2 COVID-19 MODERNA 0.5ML BOOSTER VACCINE Unknown Completed [facility] SARS-COV-2 COVID-19 MODERNA 0.5ML BOOSTER VACCINE Unknown Completed [facility] Influenza Virus Vaccine,quad Im,preserve Free 65+ (FLUAD) Unknown Completed [facility] SARS-COV-2 COVID-19 MODERNA 0.5ML BOOSTER VACCINE Unknown Completed [facility] SARS-COV-2 COVID-19 MODERNA 0.5ML BOOSTER VACCINE Unknown Completed [facility] Influenza Virus Vaccine,quad Im,preserve Free 65+ (FLUAD) Unknown Completed [facility] SARS-COV-2 COVID-19 MODERNA 0.5ML BOOSTER VACCINE Unknown Completed [facility] SARS-COV-2 COVID-19 MODERNA 0.5ML BOOSTER VACCINE Unknown Completed [facility] SARS-COV-2 COVID-19 MODERNA 0.5ML BOOSTER VACCINE Unknown Completed [facility] SARS-COV-2 COVID-19 MODERNA 0.5ML BOOSTER VACCINE Unknown Completed [facility] Vital Signs Vital Name Observation Time Observation Value Comments S shelley Systolic blood pressure 2023-09-02 20:52:00 122 mm[Hg] [facility] Diastolic blood pressure 2023-09-02 20:52:00 79 mm[Hg] [facility] Heart rate 2023-09-02 20:52:00 82 /min [facility] Body height 2023-09-02 20:52:00 152.4 cm [facility] Body weight 2023-09-02 20:52:00 57.471 kg [facility] BMI 2023-09-02 20:52:00 24.74 kg/m2 [facility] Oxygen saturation in Arterial blood by Pulse oximetry 2023-09-02 20:52:00 99 /min [facility] Systolic blood pressure 2023-08-04 19:20:00 148 mm[Hg] [facility] Diastolic blood pressure 2023-08-04 19:20:00 82 mm[Hg] [facility] Heart rate 2023-08-04 18:48:00 77 /min [facility] Respiratory rate 2023-08-04 18:48:00 18 /min [facility] Body height 2023-08-04 18:48:00 152.4 cm [facility] Body weight 2023-08-04 18:48:00 57.97 kg [facility] BMI 2023-08-04 18:48:00 24.96 kg/m2 [facility] Oxygen saturation in Arterial blood by Pulse oximetry 2023-08-04 18:48:00 100 /min [facility] Systolic blood pressure 2023-07-20 18:10:00 109 mm[Hg] [facility] Diastolic blood pressure 2023-07-20 18:10:00 68 mm[Hg] [facility] Heart rate 2023-07-20 18:10:00 69 /min [facility] Body temperature 2023-07-20 18:10:00 36.78 Yolanda [facility] Body height 2023-07-20 18:10:00 152.4 cm [facility] Body weight 2023-07-20 18:10:00 58.06 kg [facility] BMI 2023-07-20 18:10:00 25.00 kg/m2 [facility] Oxygen saturation in Arterial blood by Pulse oximetry 2023-07-20 18:10:00 100 /min [facility] Systolic blood pressure 2023-04-30 16:49:00 118 mm[Hg] [facility] Diastolic blood pressure 2023-04-30 16:49:00 72 mm[Hg] [facility] Heart rate 2023-04-30 16:49:00 72 /min [facility] Body height 2023-04-30 16:49:00 152.4 cm Univ [facility] Body weight 2023-04-30 16:49:00 56.745 kg Univ [facility] BMI 2023-04-30 16:49:00 24.43 kg/m2 Univ [facility] Oxygen saturation in Arterial blood by Pulse oximetry 2023-04-30 16:49:00 99 /min [facility] Systolic blood pressure 2023-04-15 14:41:00 124 mm[Hg] [facility] Diastolic blood pressure 2023-04-15 14:41:00 76 mm[Hg] [facility] Heart rate 2023-04-15 14:41:00 77 /min [facility] Body height 2023-04-15 14:41:00 152.4 cm [facility] Body weight 2023-04-15 14:41:[address] [facility] BMI 2023-04-15 14:41:00 24.39 [facility] in Arterial blood by Pulse oximetry 2023-04-15 14:41:00 99 /min [facility] Systolic blood pressure 2023-04-01 19:10:00 118 mm[Hg] [facility] Diastolic blood pressure 2023-04-01 19:10:00 73 mm[Hg] [facility] Heart rate 2023-04-01 19:10:00 78 /min [facility] Respiratory rate 2023-04-01 19:10:00 18 /min [facility] Body height 2023-04-01 19:10:[address] [facility] Body weight 2023-04-01 19:10:[address] [facility] BMI 2023-04-01 19:10:00 24.53 kg/m2 [facility] Oxygen saturation in Arterial blood by Pulse oximetry 2023-04-01 19:10:00 99 /min [facility] Systolic blood pressure 2023-03-25 14:37:00 112 mm[Hg] [facility] Diastolic blood pressure 2023-03-25 14:37:00 75 mm[Hg] [facility] Heart rate 2023-03-25 14:37:00 76 /min [facility] Body height 2023-03-25 14:37:00 152.4 cm [facility] Body weight 2023-03-25 14:37:00 56.518 kg [facility] BMI 2023-03-25 14:37:00 24.33 kg/m2 [facility] Oxygen saturation in Arterial blood by Pulse oximetry 2023-03-25 14:37:00 100 /min [facility] Systolic blood pressure 2023-03-19 21:15:00 120 mm[Hg] [facility] Diastolic blood pressure 2023-03-19 21:15:00 80 mm[Hg] [facility] Heart rate 2023-03-19 21:15:00 101 /min [facility] Body temperature 2023-03-19 21:15:00 37.22 Yolanda [facility] Respiratory rate 2023-03-19 21:15:00 16 /min [facility] Body height 2023-03-19 21:15:00 152.4 cm [facility] 2023-03-19 21:15:[address] [facility] BMI 2023-03-19 21:15:00 25.19 kg/m2 Univ [facility] Oxygen saturation in Arterial blood by Pulse oximetry 2023-03-19 21:15:00 97 /min [facility] Systolic blood pressure 2023-03-02 19:21:00 112 mm[Hg] [facility] Diastolic blood pressure 2023-03-02 19:21:00 72 mm[Hg] [facility] Heart rate 2023-03-02 19:21:00 74 /min [facility] Body height 2023-03-02 19:21:[address] [facility] Body weight 2023-03-02 19:21:[address] [facility] BMI 2023-03-02 19:21:00 24.61 kg/m2 Univ [facility] Oxygen saturation in Arterial blood by Pulse oximetry 2023-03-02 19:21:00 97 /min [facility] Systolic blood pressure 2023-01-05 14:12:00 108 mm[Hg] [facility] Diastolic blood pressure 2023-01-05 14:12:00 62 mm[Hg] [facility] Heart rate 2023-01-05 14:12:00 67 /min [facility] Body temperature 2023-01-05 14:12:00 36.44 Yolanda [facility] Respiratory rate 2023-01-05 14:12:00 18 /min [facility] Body height 2023-01-05 14:12:[address] [facility] Body weight 2023-01-05 14:12:[address] [facility] BMI 2023-01-05 14:12:00 24.43 [facility]2 [facility] in Arterial blood by Pulse oximetry 2023-01-05 14:12:00 99 /min [facility] Heart rate 2022-12-23 16:50:00 59 /min [facility] Oxygen saturation in Arterial blood by Pulse oximetry 2022-12-23 16:50:00 92 /min [facility] Respiratory rate 2022-12-23 16:45:00 8 /min [facility] Systolic blood pressure 2022-12-23 16:43:00 140 mm[Hg] [facility] Diastolic blood pressure 2022-12-23 16:43:00 85 mm[Hg] [facility] Body temperature 2022-12-23 16:11:00 36.11 Yolanda [facility] Body height 2022-12-16 21:15:00 152.4 cm [facility] Body weight 2022-12-16 21:15:00 54.432 kg [facility] BMI 2022-12-16 21:15:00 23.44 kg/m2 [facility] Systolic blood pressure 2022-12-23 14:03:00 112 mm[Hg] [facility] Diastolic blood pressure 2022-12-23 14:03:00 69 mm[Hg] [facility] Heart rate 2022-12-23 14:03:00 71 /min [facility] Body temperature 2022-12-23 14:03:00 36.44 Yolanda [facility] Respiratory rate 2022-12-23 14:03:00 17 /min [facility] Oxygen saturation in Arterial blood by Pulse oximetry 2022-12-23 14:03:00 97 /min [facility] Body weight 2022-12-16 21:15:00 54.432 kg [facility] BMI 2022-12-16 21:15:00 23.44 kg/m2 [facility] Body height 2022-12-16 21:15:00 152.4 cm [facility] Systolic blood pressure 2022-11-27 14:43:00 108 mm[Hg] [facility] Diastolic blood pressure 2022-11-27 14:43:00 66 mm[Hg] [facility] Heart rate 2022-11-27 14:43:00 67 /min [facility] Body temperature 2022-11-27 14:43:00 36.56 Yolanda [facility] Respiratory rate 2022-11-27 14:43:00 18 /min [facility] Body height 2022-11-27 14:43:00 152.4 cm [facility] Body weight 2022-11-27 14:43:00 55.929 kg [facility] BMI 2022-11-27 14:43:00 24.08 kg/m2 [facility] Oxygen saturation in Arterial blood by Pulse oximetry 2022-11-27 14:43:00 97 /min [facility] Body height 2022-11-20 13:02:00 152.4 cm [facility] Body weight 2022-11-20 13:02:00 55.203 kg [facility] BMI 2022-11-20 13:02:00 23.77 kg/m2 [facility] Systolic blood pressure 2022-10-27 19:45:00 114 mm[Hg] [facility] Diastolic blood pressure 2022-10-27 19:45:00 72 mm[Hg] [facility] Heart rate 2022-10-27 19:45:00 79 /min [facility] Respiratory rate 2022-10-27 19:45:00 18 /min [facility] Body height 2022-10-27 19:45:00 152.4 cm [facility] Body weight 2022-10-27 19:45:00 55.43 kg [facility] BMI 2022-10-27 19:45:00 23.87 kg/m2 [facility] Oxygen saturation in Arterial blood by Pulse oximetry 2022-10-27 19:45:00 98 /min [facility] Procedures Procedure Date / Time Performed Performing Clinician Source MR LUMBAR SPINE WO CONTRAST 2023-04-30 14:45:08 Trang Zuñiga [facility] XR HIPS 2 VW LEFT 2023-04-15 15:35:26 Yandy Ferrara [facility] POCT MOLECULAR FLU 2023-03-19 21:36:00 Unknown, Attend ing [facility] FLU VACC(),65+YR,0.5 ML,IM,ADJUVANTED,QUAD(FLU AD) 2023-01-05 14:29:08 Trang Zuñiga [facility] BI ULTRASOUND BREAST COMPLETE RIGHT 2022-12-30 16:02:37 Trang Zuñiga [facility] COLONOSCOPY 2022-12-23 15:08:00 Dot Gutierrezela [facility] COLONOSCOPY (ENDO) 2022-12-23 14:58:49 Trang Romo [facility] COLONOSCOPY (ENDO) 2022-12-23 14:58:49 Trang Romo [facility] DAY SURGERY - ADC 2022-12-23 05:01:00 Doctor Radha ssigned, [place] [facility] INSURANCE CORRESPONDENCE 2022-12-15 05:01:00 Doc tor Unassigned, [place] [facility] XR LUMBAR SPINE 3 VW 2022-11-27 16:30:49 Trang [place] [facility] XR SPINE THORACIC 3 VW 2022-11-27 16:30:49 Trang Abarca [facility] XR CERVICAL SPINE 3 VW 2022-11-27 16:30:49 Trang Abarca [facility] DEXA AXIAL (HIP AND SPINE) 2022-11-26 16:49:36 Trang Zuñiga [facility] XR KNEE 3 VW BILATERAL 2022-11-20 13:26:02 Dirk Cruz [facility] ASSIGNMENT OF BENEFITS 2022-10-27 19:35:12 Docto r Unassigned, [place] [facility] Encounters Start Date/Time End Date/Time Encounter Type Admission Type Attending Clinicians Care Facility Care Department Encounter ID Source 2022-12-01 08:53:[address] [facility] [id number] [facility] 2023-09-14 05:44:00 2023-09-15 15:31:00 Inpatient Lea Gallardo [facility]01 [id number] 25 [facility] 2023-09-02 15:20:00 2023-09-02 16:08:11 Outpatient DEVIN WASHINGTON [facility] [id number] [facility] 2023-09-02 15:20:00 2023-09-02 16:08:11 [facility] 1.2.840.114 350.1.13.10 4.2.7.2.686 [id number] [facility] 2023-08-30 00:00:00 2023-08-30 16:09:43 Telephone Devin Nayak [facility] 1.2.840.114 350.1.13.10 4.2.7.2.686 [id number] [facility] 2023-08-27 00:00:00 2023-08-27 13:32:21 Refill Trang Zuñiga [facility] 1.2.840.114 350.1.13.10 4.2.7.2.686 [id number] [facility] 2023-08-11 00:00:00 2023-08-11 12:59:47 Letter (Out) [facility] 1.2.840.114 350.1.13.10 4.2.7.2.686 [id number] [facility] 2023-08-09 13:00:00 2023-08-09 13:00:00 Outpatient R MARCIAL TYLER [facility] [id number] [facility] 2023-08-06 10:20:00 2023-08-06 10:20:00 Outpatient R TRANG ZUÑIGA [facility] [id number] [facility] 2023-08-04 14:20:00 2023-08-04 14:30:55 Outpatient R TRANG ZUÑIGA [facility] [id number] [facility] 2023-08-04 14:20:00 2023-08-04 14:30:55 Office Visit Trang Zuñiga [facility] 1.2.840.114 350.1.13.10 4.2.7.2.686 [id number] [facility] 2023-07-28 00:00:00 2023-07-28 08:30:09 Refill Trang Zuñiga [facility] JANNA?[facility] 1..840.114 350.1.13.10 4.2.7.2.686 [id number] [facility] 2023-07-20 13:39:08 2023-07-20 23:59:00 Hospital Encounter Portia [facility] JANNA?[facility] BU[facility] 1.840.114 350.1.13.10 4.2.7.2.686 [id number] [facility] 2023-07-20 13:00:00 2023-07-20 13:41:45 Outpatient R PORTIAYANDY PORTIA [facility] [id number] [facility] 2023-07-20 13:00:00 2023-07-20 13:41:45 Office Visit Portia [facility] JANNA?AYSHA [facility] BU[facility] 1..840.114 350.1.13.10 4.2.7.2.686 [id number] [facility] 2023-05-25 13:00:00 2023-05-25 13:00:00 Outpatient R [facility] [id number] [facility] 2023-05-24 00:00:00 2023-05-24 00:00:00 Patient Secure Msg Trang Zuñiga Yann [facility] JANNA?[facility] BU[facility] 1..840.114 350.1.13.10 4.2.7.2.686 [id number] [facility] 2023-05-03 09:15:00 2023-05-03 09:15:00 Outpatient R TRANG ZUÑIGA [facility] [id number] [facility] 2023-05-01 00:00:00 2023-05-01 00:00:00 Case Management Trang Zuñiga [facility] JANNA?[facility]SHA [facility] BU[facility] 1.2840.114 350.1.13.10 4.2.7.2.686 [id number] [facility] 2023-04-30 07:52:49 2023-04-30 23:59:00 Outpatient R TRANG ZUÑIGA [facility] [id number] [facility] 2023-04-30 07:52:49 2023-04-30 23:59:00 Hospital Encounter Trang Zuñiga [facility] 1.0.114 350.1.13.10 4.2.7.2.686 [id number] [facility] 2023-04-30 10:40:00 2023-04-30 11:16:27 Office [facility] 1.2840.114 350.1.13.10 4.2.7.2.686 [id number] [facility] 2023-04-25 00:00:00 2023-04-25 00:00:00 Refill Trang Zuñiga [facility] 1.2840.114 350.1.13.10 4.2.7.2.686 [id number] [facility] 2023-04-23 00:00:00 2023-04-23 00:00:00 Patient Secure Msg Doctor Unassigned, [place] [facility] 1.2840.114 350.1.13.10 4.2.7.2.686 [id number] [facility] 2023-04-21 00:00:00 2023-04-21 00:00:00 Telephone Trang Zuñiga [facility] 1..840.114 350.1.13.10 4.2.7.2.686 [id number] [facility] 2023-04-15 09:12:07 2023-04-15 23:59:00 Outpatient R ZOHRAJeffYANDY [facility] [id number] [facility] 2023-04-15 09:12:07 2023-04-15 23:59:00 Hospital Encounter Portia [facility] JANNA?[facility] MED[facility] OFF[facility] BUILDING 1..840.114 350.1.13.10 4.2.7.2.686 [id number] [facility] 2023-04-15 08:40:00 2023-04-15 09:12:45 Office Visit Portia Yandy [facility] JANNA?[facility] BUILD[facility] 1..840.114 350.1.13.10 4.2.7.2.686 [id number] [facility] 2023-04-06 00:00:00 2023-04-06 00:00:00 Outpatient R TRANG ZUÑIGA [facility] [id number] [facility] 2023-04-06 00:00:00 2023-04-06 00:00:00 Refill Trang Zuñiga [facility] [facility] 1..840.114 350.1.13.10 4.2.7.2.686 [id number] [facility] 2023-04-01 14:45:00 2023-04-01 15:00:00 Track Laborer Visit Lab, Trang Padilla [facility] JANNA?[facility] MEDICAL OFFICE BUILDING 1..840.114 350.1.13.10 4.2.7.2.686 [id number] [facility] 2023-04-01 14:20:00 2023-04-01 14:34:11 Outpatient R TRANG ZUÑIGA [facility] [id number] [facility] 2023-04-01 14:20:00 2023-04-01 14:34:11 Office Visit Trang Zuñiga [facility] MED[facility] BU[facility] 1.2.840.114 350.1.13.10 4.2.7.2.686 [id number] [facility] 2023-03-25 08:40:00 2023-03-25 09:04:17 Outpatient R YANDY FERRARA YANDY [facility] [id number] [facility] 2023-03-25 08:40:00 2023-03-25 09:04:17 Office Visit Portia [facility]?AYSHA [facility] MEDICAL OFFICE BUILDING 1.2.840.114 350.1.13.10 4.2.7.2.686 [id number] [facility] 2023-03-19 15:40:00 2023-03-19 16:00:52 Outpatient R RAIN ANDERSEN [facility] [id number] [facility] 2023-03-19 15:40:00 2023-03-19 16:00:00 Urgent Care Rain Andersen Unknown, Attending [facility] MEDICAL OFFICE BUILDING 1.2.840.114 350.1.13.10 4.2.7.2.686 [id number] [facility] 2023-03-02 14:34:21 2023-03-02 23:59:00 Outpatient R YANDY FRERARA [facility] [id number] [facility] 2023-03-02 14:34:21 2023-03-02 23:59:00 Hospital Encounter Portia [facility] JANNA?[facility] 1.2.840.114 350.1.13.10 4.2.7.2.686 [id number] [facility] 2023-03-02 13:20:00 2023-03-02 14:31:01 Office Visit Portia [facility] JANNA[facility] MEDICAL OFFICE BUILDING 1.2.840.114 350.1.13.10 4.2.7.2.686 [id number] [facility] 2023-02-26 10:20:00 2023-02-26 10:20:00 Outpatient R TRANG ZUÑIGA [facility] [id number] [facility] 2023-02-26 10:20:00 2023-02-26 10:20:00 Outpatient R TRANG ZUÑIGA [facility] [id number] [facility] 2023-02-08 00:00:00 2023-02-08 00:00:00 Refill Trang Zuñiga Yann [facility] JANNA?[facility] MEDICAL OFFICE BUILDING 1.2.840.114 350.1.13.10 4.2.7.2.686 [id number] [facility] 2023-02-07 00:00:00 2023-02-07 00:00:00 Refill Trang Zuñiga [facility] JANNA?[facility] MEDICAL OFFICE BUILDING 1.2.840.114 350.1.13.10 4.2.7.2.686 [id number] [facility] 2023-02-03 14:15:00 2023-02-03 14:15:00 Outpatient R TAYLOR DAHL CRAIG [facility] [id number] [facility] 2023-01-12 00:00:00 2023-01-12 00:00:00 Outpatient R TRANG ZUÑIGA [facility] [id number] [facility] 2023-01-05 09:00:00 2023-01-05 09:36:42 Outpatient R TRANG ZUÑIGA [facility] [id number] [facility] 2023-01-05 09:00:00 2023-01-05 09:36:42 Office Visit Trang Zuñiga [facility] MEDICAL OFFICE BUILDING 1.840.114 350.1.13.10 4.2.7.2.686 [id number] [facility] 2023-01-05 00:00:00 2023-01-05 00:00:00 Telephone Eri Huerta [facility] MEDICAL OFFICE BUILDING 1.84.114 350.1.13.10 4.2.7.2.686 [id number] [facility] 2023-01-04 15:00:00 2023-01-04 15:00:00 Outpatient R PRASHANTH CRUZ [facility] [id number] [facility] 2022-12-30 10:34:16 2022-12-30 23:59:00 Hospital Encounter Trang Zuñiga [facility] 1.84.114 350.1.13.10 4.2.7.2.686 [id number] [facility] 2022-12-30 10:33:46 2022-12-30 10:33:00 Outpatient R TRANG ZUÑIGA [facility] [id number] [facility] 2022-12-30 10:30:00 2022-12-30 10:33:00 Hospital Encounter Trang Zuñiga [facility] 1.2840.114 350.1.13.10 4.2.7.2.686 [id number] [facility] 2022-12-23 09:01:00 2022-12-23 11:50:00 Outpatient R BRENDA JOANA [facility] [id number] [facility] 2022-12-23 09:01:00 2022-12-23 11:50:00 Hospital Encounter Joana Gutierrez [facility] 1.2.840.114 350.1.13.10 4.2.7.2.686 [id number] [facility] 2022-12-23 09:57:00 2022-12-23 10:51:00 Surgery Brenda Joana [facility] 1.2840.114 350.1.13.10 4.2.7.2.686 [id number] [facility] 2022-12-23 00:00:00 2022-12-23 00:00:00 Orders Only Doctor Unassigned, [place] [facility] 1.2.840.114 350.1.13.10 4.2.7.2.686 [id number] [facility] 2022-12-21 00:00:00 2022-12-21 00:00:00 Patient Secure Msg Doctor Unassigned, [place] [facility] 1.2.840.114 350.1.13.10 4.2.7.2.686 [id number] [facility] 2022-12-15 00:00:00 2022-12-15 00:00:00 Orders Only Doctor Unassigned, [place] [facility] 1.2840.114 350.1.13.10 4.2.7.2.686 [id number] [facility] 2022-12-14 00:00:00 2022-12-14 00:00:00 Telephone Trang Zuñiga [facility] 1.2840.114 350.1.13.10 4.2.7.2.686 [id number] [facility] 2022-12-08 00:00:00 2022-12-08 00:00:00 Case Management Trang Zuñiga [facility] BU[facility] 1.84.114 350.1.13.10 4.2.7.2.686 [id number] [facility] 2022-12-03 00:00:00 2022-12-03 00:00:00 Patient Secure Msg Doctor Unassigned, [place] [facility] 1..114 350.1.13.10 4.2.7.2.686 [id number] [facility] 2022-11-28 00:00:00 2022-11-28 00:00:00 Patient Secure Msg Doctor Unassigned, [place] [facility] 1..114 350.1.13.10 4.2.7.2.686 [id number] [facility] 2022-11-27 10:57:30 2022-11-27 23:59:00 Hospital Encounter Trang Zuñiga [facility] 1..114 350.1.13.10 4.2.7.2.686 [id number] [facility] 2022-11-27 09:40:00 2022-11-27 10:14:20 Outpatient R TRANG ZUÑIGA [facility] [id number] [facility] 2022-11-27 09:40:00 2022-11-27 10:14:20 Office Visit Trang Zuñiga [facility] 1.84.114 350.1.13.10 4.2.7.2.686 [id number] [facility] 2022-11-26 11:07:38 2022-11-26 23:59:00 Hospital Encounter Trang Zuñiga [facility] 1..840.114 350.1.13.10 4.2.7.2.686 [id number] [facility] 2022-11-26 11:07:38 2022-11-26 23:59:00 Outpatient R TRANG ZUÑIGA [facility] [id number] [facility] 2022-11-26 11:07:16 2022-11-26 23:59:00 Hospital Encounter Trang Zuñiga [facility] 1..840.114 350.1.13.10 4.2.7.2.686 [id number] [facility] 2022-11-26 11:07:16 2022-11-26 23:59:00 Outpatient R ROHINI ZUÑIGAINE [facility] [id number] [facility] 2022-11-20 08:10:00 2022-11-20 23:59:00 Outpatient R CRUZ PRASHANTH [facility] [id number] [facility] 2022-11-20 08:10:00 2022-11-20 23:59:00 Hospital [facility] 1..840.114 350.1.13.10 4.2.7.2.686 [id number] [facility] 2022-11-20 08:00:00 2022-11-20 08:30:00 Office Visit Magalys [facility]KUR[facility]y [facility] 1..840.114 350.1.13.10 4.2.7.2.686 [id number] [facility] 2022-11-17 00:00:00 2022-11-17 00:00:00 Patient Secure Msg Doctor Unassigned, [place] [facility] BUILDING 1..840.114 350.1.13.10 4.2.7.2.686 [id number] [facility] 2022-11-17 00:00:00 2022-11-17 00:00:00 Telephone [facility] 1..840.114 350.1.13.10 4.2.7.2.686 [id number] [facility] 2022-11-16 00:00:00 2022-11-16 00:00:00 Telephone Trang Zuñiga [facility] OFFICE BUILDING 1..840.114 350.1.13.10 4.2.7.2.686 [id number] [facility] 2022-11-13 09:20:00 2022-11-13 09:20:00 Outpatient R TRANG ZUÑIGA [facility] [id number] [facility] 2022-10-29 00:00:00 2022-10-29 00:00:00 Case Management Trang Zuñiga [facility] BUILDING 1..840.114 350.1.13.10 4.2.7.2.686 [id number] [facility] 2022-10-27 16:00:00 2022-10-27 16:15:00 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 NICHOLAS [facility] BUILD[facility] 1.840.114 350.1.13.10 4.2.7.2.686 [id number] [facility] 2022-10-27 00:00:00 2022-10-27 00:00:00 Orders Only Doctor Unassigned, [place] [facility] 1.840.114 350.1.13.10 4.2.7.2.686 [id number] [facility] Results Test Description Test Time Test Comments Results Result Co mments Source CBC W/AUTO [id number] 05:22:00* Test Item Value Reference Range Interpretation Comme nts WHITE BLOOD CELL (test code = WBC) 12.7 K/mm3 4.5-11.0 H RED BLOOD CELL (test code = RBC) 3.57 M/mm3 3.80-5.20 L HEMOGLOBIN (test code = HGB) 11.2 gm/dL 12.0-16.0 L HEMATOCRIT (test code = HCT) 34.0 % 36.0-48.0 L MEAN CELL VOLUME (test code = MCV) 95.2 UM3 82.0-99.0 N MEAN CELL HGB (test code = MCH) 31.4 UUG 25.5-32.5 N MEAN CELL HGB CONCETRATION (test code = MCHC) 32.9 gm/dL 29.0-35.5 N RED CELL DISTRIBUTION WIDTH (test code = RDW) 12.7 % 11.5-15.0 N RED CELL DISTRIBUTION WIDTH SD (test code = RDW-SD) 44.3 fL 34.8-50.2 N PLATELET COUNT (test code = PLT) 308 K/mm3 150-400 N MEAN PLATELET VOLUME (test c ode = MPV) 10.3 fl 7.4-10.4 N NEUTROPHIL % (test code = NT%) 87.3 % 49.0-76.0 H IMMATURE GRANULOCYTE % (test code = IG%) 0.3 % 0.0-0.4 N LYMPHOCYTE % (test code = LY%) 5.7 % 23.0-38.0 L MONOCYTE % (test code = MO%) 6.5 % 1.0-10.0 N EOSINOPHIL % (test code = EO%) 0.0 % 1.0-5.0 L BASOPHIL % (test code = BA%) 0.2 % 0.0-1.0 N NUCLEATED RBC % (test code = NRBC%) 0.0 % 0.0-0.1 N NEUTROPHIL # (test code = NT#) 11.1 K/mm3 2.4-6.3 H IMMATURE GRANULOCYTE # (test code = IG#) 0.04 x10 3/uL 0.00-0.07 N LYMPHOCYTE # (test code = LY#) 0.7 K/mm3 1.2-4.0 L MONOCYTE # (test code = MO#) 0.8 K/mm3 0.0-0.6 H EOSINOPHIL # (test code = EO#) 0.0 K/MM3 0.0-0.7 N BASOPHIL # (test code = BA#) 0.0 K/mm3 0.0-0.2 N NUCLEATED RBC # (test code = NRBC#) 0.00 X10 3uL 0.00-0.01 N URINALYSIS [id number] 07:41:00* Test Item Value Reference Range Interpretation Comme nts UA COLOR (test code = COLU) LT YELLOW UA APPEARANCE (test code = APPU) CLEAR UA GLUCOSE DIPSTICK (test code = DGLUU) NEGATIVE mg/dl NORMAL UA BILIRUBIN DIPSTICK (test code = BILU) NEGATIVE mg/dL NEGATIVE UA KETONE DIPSTICK (test code = KETU) NEGATIVE mg/dl NEGATIVE UA SPECIFIC GRAVITY (test code = SGU) 1.025 1.000-1.030 UA BLOOD DIPSTICK (test code = CIERA) 25 Pascual/micL Pascual/micL NEGATIVE A UA PH DIPSTICK (test code = ANCELMO) 6.0 5.0-9.0 UA PROTEIN DIPSTICK (test code = PROU) NEGATIVE mg/dl NEGATIVE UA UROBILINIOGEN DIPSTICK (test code = URO) NORMAL mg/dl NORMAL UA NITRITE DIPSTICK (test code = JAKE) NEGATIVE NEGATIVE UA LEUKOCYTE ESTERASE DIPSTICK (test code = LEUU) 25 Hannah/micL Hannah/micL NEGATIVE A UA RBC (test code = RBCU) 3-5 RBC/HPF 0-3 UA EPITHELIAL CELLS (test code = EPIU) 1-3 EPI/HPF 0-3 UA BACTERIA (test code = BACU) FEW NONE UA WBC NO REFLEX (test code = WBCUCL) 4-9 WBC/HPF 0-3 A UA MUCUS (test code = MUCU) 1+ COMPREHENSIVE METABOLIC [id number] 11:59:00* Test Item Value Reference Range Interpretation Comme nts SODIUM (test code = NA) 138 mmol/l 134.0-147.0 N POTASSIUM (test code = K) 3.8 mmol/L 3.6-5.2 N CHLORIDE (test code = CL) 101 mmol/l 98.0-107.0 N CARBON DIOXIDE (test code = CO2) 26.9 mmol/l 21.0-33.0 N ANION GAP (test code = GAP) 13.9 0-20 N GLUCOSE (test code = GLU) 73 mg/dl 70.0-110.0 N BLOOD UREA NITROGEN (test code = BUN) 17 mg/dl 7.0-18.0 N GLOMERULAR FILTRATION RATE (test code = GFR) 102 mL/min The Glomerular Filtration Rate is a calculated parameterbased on serum Creatinine, patient age and sex. GFR valuesless than 60 mL/min/1.73 square meters are indicative ofChronic Kidney Disease. Values less than 15 mL/min/1.73square meters indicate Kidney failure. The calculation forGFR is based on the CKD-EPI (2021) calculation. This formulais race indifferent and is the recommended formula for GFRby the National Kidney Foundation for Adults.The GFR will not calculate if the sex is unknown or if thepatient's age is <18 years. CREATININE (test code = CREAT) 0.51 mg/dL 0.60-1.30 L TOTAL PROTEIN (test code = PROT) 7.8 gm/dL 6.4-8.2 N ALBUMIN (test code = ALB) 4.3 gm/dl 3.2-4.7 N CALCIUM (test code = CA) 8.8 mg/dl 8.0-10.5 N BILIRUBIN TOTAL (test code = BILT) 0.7 mg/dl 0.0-1.0 N SGOT/AST (test code = AST) 20 Units/L 15-37 N SGPT/ALT (test code = ALT) 17 Units/L 12.0-78.0 N ALKALINE PHOSPHATASE TOTAL (test code = ALKP) 91 Units/L 50.0-136.0 N PROTHROMBIN [id number] 11:44:00* Test Item Value Reference Range Interpretation Comme nts PROTHROMBIN TIME PATIENT (test code = PTP) 11.7 SECONDS 9.9-12.8 N INTERNATIONAL NORMAL RATIO (test code = INR) 1.1 0.89-1.14 N THE INR IS TO BE USED ONLY FOR MONITORING ORAL ANTICOAGULANTTHERAPY. THE FOLLOWING ARE SUGGESTED RANGES FROM [facility] COL[facility] OF CHEST PHYSICIANS:INDICATION INR VALUEPROPHYLAXIS OF VENOUS THROMBOSIS (ORTHOPEDIC SURGERY) 2.0 - 3.0PROPHYLAXIS OF VENOUS THROMBOSIS (OTHER THAN HIGH-RISK SURGERY) 2.0 - 3.0TREATMENT OF DEEP VEIN THROMBOSIS OR PULMONARY EMBOLISM 2.0 - 3.0PREVENTION OF SYSTEMIC EMBOLISM TISSUE HEART VALVES 2.0 - 3.0 ACUTE MYOCARDIAL INFARCTION (TO PREVENT SYSTEMIC EMBOLISM) 2.0 - 3.0 ACUTE MYOCARDIAL INFARCTION (TO PREVENT RECURRENT INFARCT) 2.5 - 3.0 VALVULAR HEART DISEASE 2.0 - 3.0 ATRIAL FIBRILATION 2.0 - 3.0BILEAFLET MECHANICAL VALVE IN AORTIC POSITION 2.0 - 3.0MECHANICAL PROSTHETIC VALVES (HIGH RISK) 2.5 - 3.5PRESENCE OF LUPUS ANTICOAGULANT OR ANTIPHOSPHOLIPID ANTIBODIES 2.5 - 3.5 CBC W/AUTO [id number] 11:42:00* Test Item Value Reference Range Interpretation Comme nts WHITE BLOOD CELL (test code = WBC) 6.6 K/mm3 4.5-11.0 N RED BLOOD CELL (test code = RBC) 4.13 M/mm3 3.80-5.20 N HEMOGLOBIN (test code = HGB) 12.7 gm/dL 12.0-16.0 N HEMATOCRIT (test code = HCT) 38.4 % 36.0-48.0 N MEAN CELL VOLUME (test code = MCV) 93.0 UM3 82.0-99.0 N MEAN CELL HGB (test code = MCH) 30.8 UUG 25.5-32.5 N MEAN CELL HGB CONCETRATION (test code = MCHC) 33.1 gm/dL 29.0-35.5 N RED CELL DISTRIBUTION WIDTH (test code = RDW) 12.9 % 11.5-15.0 N RED CELL DISTRIBUTION WIDTH SD (test code = RDW-SD) 44.2 fL 34.8-50.2 N PLATELET COUNT (test code = PLT) 312 K/mm3 150-400 N MEAN PLATELET VOLUME (test c ode = MPV) 9.8 fl 7.4-10.4 N NEUTROPHIL % (test code = NT%) 62.1 % 49.0-76.0 N IMMATURE GRANULOCYTE % (test code = IG%) 0.3 % 0.0-0.4 N LYMPHOCYTE % (test code = LY%) 27.5 % 23.0-38.0 N MONOCYTE % (test code = MO%) 7.9 % 1.0-10.0 N EOSINOPHIL % (test code = EO%) 1.7 % 1.0-5.0 N BASOPHIL % (test code = BA%) 0.5 % 0.0-1.0 N NUCLEATED RBC % (test code = NRBC%) 0.0 % 0.0-0.1 N NEUTROPHIL # (test code = NT#) 4.1 K/mm3 2.4-6.3 N IMMATURE GRANULOCYTE # (test code = IG#) 0.02 x10 3/uL 0.00-0.07 N LYMPHOCYTE # (test code = LY#) 1.8 K/mm3 1.2-4.0 N MONOCYTE # (test code = MO#) 0.5 K/mm3 0.0-0.6 N EOSINOPHIL # (test code = EO#) 0.1 K/MM3 0.0-0.7 N BASOPHIL # (test code = BA#) 0.0 K/mm3 0.0-0.2 N NUCLEATED RBC # (test code = NRBC#) 0.00 X10 3uL 0.00-0.01 N MR LUMBAR SPINE WO [id number] 20:17:35EXAM: MR LUMBAR SPINE WO CONTRAST HISTORY: 67 years-old Female; Provided indication: Low back pain,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 COMPARISON: Radiograph dated 11/27/2022. TECHNIQUE: Multiplanar and multisequence MRI imaging of the lumbar spinewas obtained without contrast. FINDINGS: Pronounced scoliosis of the lumbar spine. The vertebral bodies are normalin height and in normal alignment. The conus medullaris terminates at the level of L2. The cauda equina nerveroots are crowded at L2-L3. Multilevel disc desiccation and height loss is present. The backgroundmarrow signal is unremarkable. A 1.1 cm L2 intraosseous hemangioma. L1-L2: Disc bulge and facet arthrosis causes mild bilateral neuralforaminal narrowing. No significant spinal canal stenosis. L2-L3: Disc bulge, ligamentum flavum thickening, and facet arthrosis causesmild spinal canal stenosis, mild left and moderate rightneural foraminalnarrowing. L3-L4: Disc bulge, ligamentum flavum thickening, and facet arthrosis causesmild spinal canal stenosis and mild bilateral neural foraminal narrowing. L4-L5: Disc bulge and facet arthrosis causes mild spinal canal stenosis,moderate left and mild right neural foraminal narrowing. Small bilateralfacet effusions are noted. L5-S1: Disc bulge, facet arthrosis, and ligamentum flavum thickening causemoderate left-sided neural foraminal narrowing. No significant spinal canalstenosis or right foraminal narrowing. Bilateral renal parapelvic cyst versus moderate hydronephrosis is partiallyvisualized.[facility] 2023-04-15 19:51:31XR HIPS 2 VW LEFT HISTORY: ?Fall on L hip, residual pain COMPARISON: 03/02/2023 Findings:The osseous structures are demineralized. Mild degenerative changes ofbilateral hip joints.[facility] POCT Molecular [id number] 21:43:15* Test Item Value Reference Range Interpretation Comme nts POCT Molecular FluA (test co de = 72503-4) Positive Negative A Lab Interpretation (test cod e = 00025-9) Abnormal [facility] Notes Date/Time Note Provider Source 2023-09-15 10:24:00 [id number]:24:00 [facility]Hospital[facility] Discharge SummaryREPORT#:[id number] REPORT STATUS: SignedREPORT INITIALIZATION DATE:09/15/23 TIME: 1024 PATIENT: RONI KENNY UNIT #: [id number]#: [id number] ROOM/BED: [facility]DOB: [birth year] AGE: 68 SEX: F ATTEND: Lea Red AUTHOR: Ezequiel Jones PAREPT SERVICE DT/TIME: 09/15/23 1024* ALL edits or amendments must be made on the electronic/computer document * General InformationDate of admission:Observation Start Date: 09/14/23Date of admission: 09/14/23 Discharge date: 09/15/23Admission diagnosis:DJD left kneeDischarge diagnosis:SameHospital course:Ms. Kenny is a 68-year-old female who has been following with Dr. Quesada in clinic for knee pain. Patient's pain is dating that she has been having difficulty with both knees but her left has been worse than the right. Patient has tried multiple conservative measures however has not helped. Patient statesthat starting to impact her quality of life as well as her ability to perform her ADLs. It was decided that patient would best be suited to undergo surgery. Patient is now postop left total knee arthroplasty. We are consulted to assist with med management during her stay. She has been seen examined and chart reviewed. Pain is currently well-controlled.Hx Obtained From Patient, Prior medical records Pt. condition on discharge: improved, stable Free Text DxA P NotesFree text DxA P notes:DJD-DOS LEFT TKA-Pain control, polar ICE, AC, PT Depression-Renew meds Med Rec Med RecDischarge meds:Stop taking the following medications:MELOXICAM (MOBIC) 15 MG TAB 15 MILLIGRAM ORAL DAILY. Continue taking these medications:CHOLECALCIFEROL (VITAMIN D3) (VITAMIN D3) 1,250 MCG (50,000 UNIT) CAP 50,000 UNIT ORAL EVERY 7 DAYS. GABAPENTIN (NEURONTIN) 100 MG CAP 100 MILLIGRAM ORAL TWICE DAILY. DULoxetine DR (CYMBALTA) 20 MG CAP.DR 20 MILLIGRAM ORAL DAILY. traMADol (ULTRAM) 50 MG TAB 50 MILLIGRAM ORAL EVERY 6 HOURS NEEDED. as needed for ACUTE PAIN Start taking the following new medications:ASPIRIN (ASPIRIN) 325 MG TAB 325 MILLIGRAM ORAL TWICE DAILY. Qty = 60 No Refills CELECOXIB (CeleBREX) 100 MG CAP 200 MILLIGRAM ORAL EVERY 12 HOURS. as needed for left knee surg pain Qty = 60 No Refills Hydrocodone/Acetaminophen (HYDROcodone/APAP 7.5/325) 7.5 MG-325 MG TAB 1 TABLET ORAL EVERY 4 HOURS NEEDED. as needed for PAIN SCALE 4-10 for surgery pa Qty = 40 No Refills ObjectiveVS/I OLast Documented: Result Date Time Pulse Ox 100 09/14 0816 O2 Delivery Room air 09/14 0816 B/P 141/68 09/14 0743 B/P Mean 92.5 09/14 0743 Temp 97.9 09/14 0743 Pulse 87 09/14 0743 Resp 12 09/14 07 O2 Flow Rate 8 09/13 0900 24 hour I O ending at 0700: 09/14 0700 09/13 1900 Intake Total 1440.00 Output Total 1900 Balance -460.00 Intake, IV 1440.00 Output, Urine 1900 Patient 65.771 kg Weight Weight Bed scale Measurement Method ResultsFindings/Data:Laboratory Tests: 09/14 0436 Chemistry Sodium (134.0 - 147.0 mmol/l) 137 Potassium (3.6 - 5.2 mmol/L) 4.2 Chloride (98.0 - 107.0 mmol/l) 102 Carbon Dioxide (21.0 - 33.0 mmol/l) 26.3 Anion Gap (0 - 20) 12.9 BUN (7.0 - 18.0 mg/dl) 9 Creatinine (0.60 - 1.30 mg/dL) 0.63 Glomerular Filtr Rate (mL/min) 97 Glucose (70.0 - 110.0 mg/dl) 121 H Calcium (8.0 - 10.5 mg/dl) 8.9 Hematology WBC (4.5 - 11.0 K/mm3) 12.7 H RBC (3.80 - 5.20 M/mm3) 3.57 L Hgb (12.0 - 16.0 gm/dL) 11.2 L Hct (36.0 - 48.0 %) 34.0 L MCV (82.0 - 99.0 UM3) 95.2 MCH (25.5 - 32.5 UUG) 31.4 MCHC (29.0 - 35.5 gm/dL) 32.9 RDW (11.5 - 15.0 %) 12.7 Plt Count (150 - 400 K/mm3) 308 MPV (7.4 - 10.4 fl) 10.3 Neut % (Auto) (49.0 - 76.0 %) 87.3 H Lymph % (Auto) (23.0 - 38.0 %) 5.7 L [place] % (Auto) (1.0 - 10.0 %) 6.5 Eos % (Auto) (1.0 - 5.0 %) 0.0 L Baso % (Auto) (0.0 - 1.0 %) 0.2 Neut # (Auto) (2.4 - 6.3 K/mm3) 11.1 H Lymph # (Auto) (1.2 - 4.0 K/mm3) 0.7 L [place] # (Auto) (0.0 - 0.6 K/mm3) 0.8 H Eos # (Auto) (0.0 - 0.7 K/MM3) 0.0 Baso # (Auto) (0.0 - 0.2 K/mm3) 0.0 Absolute Nucleated RBC (0.00 - 0.01 X10 3uL) 0.00 Immature Gran % (0.0 - 0.4 %) 0.3 Nucleated RBC % (0.0 - 0.1 %) 0.0 Immature Gran # (0.00 - 0.07 x10 3/uL) 0.04 Free Text Obj NotesFree Text Obj Notes:Physical Exam:General appearance: alert, awake, oriented, no acute distress, pleasant, no respiratory distressHead/Eyes: atraumatic, EOMI, normocephalicENT: moist mucosal membranes, normal nose, normal sinusNeck: non-tender, no JVD, no masses or swelling.Cardiovascular: normal heart sounds, regular rate rhythm, no murmurRespiratory: aerating well, clear to auscultation, symmetric expansion, no distressAbdomen: non-tender, normal bowel sounds, soft, no distentionExtremities: moves all, no calf tenderness, no edemaMusculoskeletal: no CVA tenderness, no midline vertebral tend, no muscle spasmNeuro/DUST HANDLER: alert, oriented X 3, CNII-XII intactSkin: CDATPsychiatry: normal affect, normal mood Discharge Instructions PCPPCP follow-up:PCP: Trang Zuñiga MD Discharge to: Home/Self CareAdditional Discharge Routines: Attending Follow-Up, Wound/Dressing CareDiet: Resume Home Diet/FeedsWound/dressing care: Do not submerge incision, Keep wound clean and dry, Leave dressing in place, OK to shower tomorrowDischarge management: greater than 30 mins, face to face encounter Follow-up AppointmentsAttending Physician: Attending Physician: Quan Quesada MD Attending physician follow up timeframe: In 1-2 weeks at 1026 RPT #:[id number] OF REPORTDSDischarge moeeaey6361-54-78B12:24:00E.PDOC20 432827-5157FYKiciyjdbf for patient azynUXFHJWIAJBPVXT5744-54-80I55:26 :38 [facility] 2023-09-14 12:43:00 [id number] aXZEZ68Lx1VeHF 73VZ7bTT2xzUA6L3QWE2XasAicGdhR8F/D /BTMgYAx5451-47-28B40:43:00 [facility] ([facility] History PhysicalREPORT#:[id number] REPORT STATUS: SignedREPORT INITIALIZATION DATE:09/14/23 TIME: 1242 PATIENT: RONI KENNY UNIT #: [id number]#: [id number] [address] AGE: 68 SEX: F ATTEND: Lea Red MDA AUTHOR: Ezequiel Jones PAREPT SERVICE DT/TIME: 09/14/23 1243* ALL edits or amendments must be made on the electronic/computer document * History of Present Illness HPIChief complaint:DJDHPI:Ms. Kenny is a 68-year-old female who has been following with Dr. Grullon in clinic for knee pain. Patient's pain is dating that she has been having difficulty with both knees but her left has been worse than the right. Patient has tried multiple conservative measures however has not helped. Patient statesthat starting to impact her quality of life as well as her ability to perform her ADLs. It was decided that patient would best be suited to undergo surgery. Patient is now postop left total knee arthroplasty. We are consulted to assist with med management during her stay. She has been seen examined and chart reviewed. Pain is currently well-controlled.Hx Obtained From Patient, Prior medical records History Past Medical Surgical HxAdditional medical history:DepressionDJDAdditional surgical history:TKA 09/13 Family HistoryAdditional family history:HTN Social HistoryAlcohol use: Denies EtOH useDrug use: Denies recreational drugsSmoking status for patients 13 years old or older: Never Smoker Medication/Allergy-Vaccine HxAllergies:Coded Allergies:Iodinated Contrast Media (SWELLING ITCHING 09/14/23)buspirone (From BUSPAR) (HIVES 09/14/23) Review of Systems Free Text ROS NotesFree Text ROS Notes:Review of SystemsConstitutional:Denies: chills, fatigue, fever, generalized weakness, lethargy. Skin:Denies: abrasion, bruising, contusion. Allergy/Immun:Denies: anaphylaxis, hives, itching. Eyes:Denies: discharge, visual loss/blurred, itching. ENT:Denies: earache, hearing loss, mouth pain. Respiratory:No SOB or coughCardiovascular:Denies: CP, edema, orthopnea, palpitations. GI:Denies: anorexia, constipation, diarrhea. :Denies: flank pain, frequency, hematuria, nocturia. Musculoskeletal:Knee painHeme:Denies: bleeding, petechiae. Endocrine:Denies: heat intolerance, polydipsia, polyphagia. Neuro:Denies: change in LOC, confusion, dizziness. Psych:Denies: auditory hallucination, change in mental status, confusion. All systems rev neg: except as noted OBJECTIVEVS/I O:Vital Signs Date Temp Pulse Resp B/P B/P Mean Pulse Ox FiO2 09/13 97.4-97.8 73-87 12-20 115-139/65-78 93.5 96-100 Last Documented: Result Date Time Pulse Ox 99 09/13 1226 O2 Delivery Room air 09/13 1226 B/P 124/78 06/25 1046 B/P Mean 93.5 09/13 1046 Temp 97.7 09/13 1046 Pulse 73 09/13 1046 Resp 12 09/13 1046 O2 Flow Rate 8 09/13 0900 24 hour I O ending at 0700: 09/13 0700 09/12 1900 Intake Total Output Total Balance Patient 56.81 kg Weight Weight Standing scale Measurement Method Patient Weight and BMI Weight (kg): 66.000 BMI: 28.4 ResultsFindings/Data:Laboratory Tests: 09/13 0505 Urines Urine Color LT YELLOW Urine Appearance CLEAR Urine pH (5.0 - 9.0) 6.0 Ur Specific [place] (1.000 - 1.030) 1.025 Urine Protein (NEGATIVE mg/dl) NEGATIVE Urine Glucose (UA) (NORMAL mg/dl) NEGATIVE Urine Ketones (NEGATIVE mg/dl) NEGATIVE Urine Blood (NEGATIVE Pascual/micL) 25 Pascual/micL H Urine Nitrite (NEGATIVE) NEGATIVE Urine Bilirubin (NEGATIVE mg/dL) NEGATIVE Urine Urobilinogen (NORMAL mg/dl) NORMAL Ur Leukocyte Esterase (NEGATIVE Hannah/micL) 25 Hannah/micL H Urine RBC (0 - 3 RBC/HPF) 3-5 Urine WBC (0 - 3 WBC/HPF) 4-9 H Ur Epithelial Cells (0 - 3 EPI/HPF) 1-3 Urine Bacteria (NONE) FEW Urine Mucus 1+ Radiology data:Recent Impressions:RADIOLOGY - XR KNEE 1 OR 2 V LT 09/13 0854 Report Impression - Status: SIGNED Entered: 09/14/2023 0929 IMPRESSION: Good alignment of the total knee arthroplasty. Location: F00[place] By: RadhaRM61 - Kingsley Garcia MD Free Text PE NotesFree Text PE Notes:Physical Exam:General appearance: alert, awake, oriented, no acute distress, pleasant, no respiratory distressHead/Eyes: atraumatic, EOMI, normocephalicENT: moist mucosal membranes, normal nose, normal sinusNeck: non-tender, no JVD, no masses or swelling.Cardiovascular: normal heart sounds, regular rate rhythm, no murmurRespiratory: aerating well, clear to auscultation, symmetric expansion, no distressAbdomen: non-tender, normal bowel sounds, soft, no distentionExtremities: moves all, no calf tenderness, no edemaMusculoskeletal: no CVA tenderness, no midline vertebral tend, no muscle spasmNeuro/DUST HANDLER: alert, oriented X 3, CNII-XII intactSkin: CDATPsychiatry: normal affect, normal mood Diagnosis, Assessment PlanFree Text A P:DJD-DOS LEFT TKA-Pain control, polar ICE, AC, PT Depression-Renew meds Plan discussed with: patient, nurse at 1249 RPT #:[id number] OF REPORTHPHistory and physical riejvvzekdh8083-77-35V01:43:00E.PD [id number] for patient tyhaVTHYTIOVRAEZGC2022-50-94A73:49 :21 [facility] 2023-09-14 09:31:00 [id number] JJUW+V+Tomqu0K MLoBIUhe08yhig9sj6ntUzvS47u0Mv5uF+ IretDkTf0560-64-46D81:31:00 [facility] ([facility])Brief Op NoteREPORT#:[id number] REPORT STATUS: SignedREPORT INITIALIZATION DATE:09/14/23 TIME: 930 PATIENT: RONI KENNY UNIT #: [id number]#: [id number] [address] AGE: 68 SEX: F ATTEND: Lea Red AUTHOR: Chu Domingo PAREPT SERVICE DT/TIME: 09/14/23 0931* ALL edits or amendments must be made on the electronic/computer document * Op/Inv Proc Note - BriefPre-procedure diagnosis:L knee DJDPost-procedure diagnosis: same as pre procedure dxProcedures performed:Left knee total arthroplastyPrimary Surgeon:Hoang Cannonistant(s): TREMAINE Alicia-CAnesthesia: general anesthesiaFindings:See dt operative reportComplications: noneEstimated blood loss in ml's: minimalSpecimens removed/altered: noneApproach: openWound class: cleanDisposition: PACUCounts: Sponge count: correct Instrument count: correct Needle count: correct at 0932 RPT #:[id number] OF REPORTOPOperative hjfoen6305-85-60R72:31:00E.AGWD861 44817-6815YTOdsenslmq for patient jlmgJSRFMJYMXSMEYD6159-80-32I91:33 :09 [facility] 2023-09-10 10:17:00 [id number] g7GBAG8xv+UvyH zcRBug+pUJ2kyJ7ViHNscVbucJJkY5SC63 5frSHbWG0131-36-48Y18:17:00 [place] [address] ELECTROCARDIOGRAM Patient: RONI KENNY Unit #: [id number] Sex/Age: F 68 : 55 Admit Date: Location: [facility] Physician: Quan Quesada MD Room/Bed: Order:[id number] Reason : PREOP Test Date/Time Stamp:WedSep 10 2023 10:17:56Blood Pressure : / mmHGVent. Rate : 070 BPM Atrial Rate : 070 BPM P-R Int : 192 ms QRS Dur : 092 ms QT Int : 380 ms P-R-T Axes : 074 -17 007 degrees QTc Int : 410 ms Normal sinus rhythmLow voltage QRSCannot rule out Anterior infarct , age undeterminedAbnormal ECGNo previous ECGs availableConfirmed by PANDA ODONNELL MD ([id number]) on 09/10/2023 4:00:55 PM Referred By: Quan Quesada Confirmed by:PANDA ODONNELL MD at 1600 ----- dd/t: 09/10/23 1017CDCardiodiagnosticsE.RPX340991 21-0008AVAvailable for patient sfkyJMANOEVBLCRAHS0054-06-51R59:01 :27 [facility] 2023-08-30 16:09:10 8080-31-04V76:09:10F ormatting of this note might be different from the original.Patient asking what to expect, first time appointment with cardiology on . Discussed with patient. No further questions at this time. 23128-4Aykjyuvrx encounter TcrkIB3446-57-24Q03:09:43Telephone encounter NoteTXT1.2.840.972641.1.13.104.2.7 .2.188207|[id number] for patient lamh12530-1TiahYNIXSITWHUTHebiingr d C-CDA narrative [id number] Patt MEYER[address] TavhTyckdmjdpJkznejdrhKTIW67170960 82TGNXSVZYCIOQXPTJCYMSUJ6088-06-40 T16:09:431.2.840.850301.1.72.3.15| 1.2.840.826498.1.13.104.2.7.2.7278 [id number] Eula Beltre RN [facility] 2023-08-30 14:07:11 5984-26-87U21:07:11F ormatting of this note might be different from the original.Copied from [facility] #[id number]. 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 Pt requesting call from clinical staff to review upcoming appt details. Please advise. 64753-5Dgaaajtvu encounter UdmqLP8068-10-65V54:07:27Telephone encounter NoteTXT1.2.840.725361.1.13.104.2.7 .2.215209|[id number] for patient wdfm37250-3FzxhDDYCBPVDJDWOdiwxkfy d C-CDA narrative dwhe59308340Tywwvh F [address] RaggXhjaqvnmkZhyfjeaqhNHAK75578621 86JOXZNAMZVJROJZMWATYKFX2777-29-00 T14:07:271.2.840.808892.1.72.3.15| 1.2.840.529390.1.13.104.2.7.2.7278 [id number] Alex Sellers [facility] 2023-07-28 08:26:58 1073-19-58V44:26:58F ormatting of this note is different from the original.Images from the original note were not included.Notes: 04/27/23Last Refilled:[id number]: Zatzgf VisitsDate Type Provider Dept07/20/23 Office Visit Yandy Ferrara MD [facility] Med04/30/23 Office Visit Trang Zuñiga MD [facility] Med04/15/23 Office Visit Yandy Ferrara MD [facility] Med04/01/23 Office Visit Trang Zuñiga MD [facility] Med03/25/23 Office Visit Yandy Ferrara MD [facility] Med03/02/23 Office Visit Yandy Ferrara MD [facility] Med01/05/23 Office Visit Trang Zuñiga MD [facility] Med11/27/22 Office Visit Trang Zuñiga MD [facility] Med10/27/22 Office Visit Trang Zuñiga MD [facility] MedShowing recent visits within past 540 days with a meds authorizing provider and meeting all other requirementsFuture AppointmentsDate Type Provider Dept08/06/23 Appointment Trang Zuñiga MD [facility] MedShowing future appointments within next 150 days with a meds authorizing provider and meeting all other requirementsName from pharmacy: DULOXETINE HCL 20 MG Deanna file in chart as: DULOXETINE 20 mg capsuleSig: TAKE 1 CAPSULE BY MOUTH EVERY DAY IN THE MORNINGDisp: 90 capsule Refills: 0 (Pharmacy requested: Not specified)Start: 07/28/2023lass: eRXFor: Acute depressionLast ordered: 3 months ago (04/27/2023) by Trang Zuñiga MDLast refill: 4Rx #: [id number] Pain Sgdffg7107/28/2023 08:03 AMProtocol Details Manual Review: Verify no changes in dose in the last 3 monthsValid encounter within last 12 monthsTo be filled at: [id number] - [address] AT [facility] [address]-6Tnpalaabn encounter IvkhMR4175-36-66S91:30:09Telephone encounter NoteTXT1.2.840.405298.1.13.104.2.7 .2.449066|[id number] for patient uqeu56488-1FgxiLQKNVREPICWFqfbqheq d C-CDA narrative [id number] L Cantu [address] Bn[id number] 19UBCDUEYJJBDQISSSHJVZFL2380-58-24 T08:30:091.2.840.397844.1.72.3.15| 1.2.840.290422.1.13.104.2.7.2.7278 [id number] Maryjane Plummer [facility] 2023-04-27 14:18:23 1532-53-01O98:18:23F ormatting of this note is different from the original.Medication refilled per policy:*Requesting 90 day fillLast office visit: 1/25/24Next office visit: 04/30/23Requested PrescriptionsPending Prescriptions Disp RefillsDULOXETINE 20 mg capsule [Pharmacy Med Name: DULOXETINE HCL DR 20 MG CAP] 90 capsule 1Sig: TAKE 1 CAPSULE BY MOUTH EVERY MORNINGLast fill date: 04/01/23Notes:2. Acute depressionAcutePatient dealing with significant anxiety from loss of several family membersPatient interested in seeing therapist- DULoxetine 20 mg capsule; Take 1 capsule by mouth in the morning. Dispense: 30 capsule; Refill: 1 14216-8Hanazietb encounter HoweLO9731-78-94I27:20:20Telephone encounter NoteTXT1.2.840.498865.1.13.104.2.7 .2.891146|[id number] for patient lnax51552-9OfrkOTKPDMVCURJAebccugy d C-CDA narrative textUT[address] RpbnVbpqqknllUukhqjijvQRKI72842927 24NUIIDIUITMCFWHVSBGVLXA9746-11-00 T14:20:201.2.840.635976.1.72.3.15| 1.2.840.826147.1.13.104.2.7.2.7278 [id number] [facility] 2023-04-06 09:15:06 8635-92-05L79:15:06F ormatting of this note is different from the original.Refill deniedRequested PrescriptionsPending Prescriptions Disp RefillsCHOLECALCIFEROL, VITAMIN D3, 1,250 mcg (50,000 unit) capsule [Pharmacy Med Name: VITAMIN D3 50,000 UNIT CAPSULE] 8 capsule 0Sig: TAKE 1 CAPSULE BY MOUTH ONE TIME PER WEEKLow vitamin D. I recommend replacement. I will send an 8 week course to your pharmacy, one capsule per week for 8 weeks. After that, please take vitamin d3 2000 IU OTC.Last fill date: 02/11/24 81290-5Baafxfjae encounter LqcnES4849-85-54W43:17:25Telephone encounter NoteTXT1.2.840.783012.1.13.104.2.7 .2.690663|[id number] for patient tncf37644-6JqfdOCMKDXXEWSJJomtttdb d C-CDA narrative text[id number] 62JSWBPBPEUDVMRWDGJMARJC8392-35-04 T09:17:251.2.840.133740.1.72.3.15| 1.2.840.976613.1.13.104.2.7.2.7278 [id number] [facility] 2023-04-01 14:45:00 8447-37-39T20:45:00F ormatting of this note is different from the original.Images from the original note were not included.Venipuncture collection performed by clean technique on the left anticubitus. Total of 1 attempts were made. Slight pressure and a bandage/dressing were applied to the site(s). The patient experienced no complications. The following specimens were processed according to instructions and sent to [facility] laboratories per lab order on TODAY:LT BLUESST 1REDLAVPPTDK GREEN (LiHep)DK GREEN (SodH)GRAYDK BLUE (K2)DK BLUE (S)ACDBlood CultureNIPT/NTD [id number] UjvjWM7439-49-46W95:42:10Nurse NoteTXT1.2.840.527621.1.13.104.2.7 .2.887321|[id number] for patient lhys82262-3Isfzk NoteLNNARRATIVEFormatted C-CDA narrative text[id number] 17OCWRHKERGCEOEOXKRSMRUQ2115-33-81 T14:42:101.2.840.386706.1.72.3.15| 1.2.840.970890.1.13.104.2.7.2.7278 [id number] [facility] 2022-11-19 10:57:26 8557-12-12O67:57:26F ormatting of this note might be different from the original.Images from the original note were not included.Instructions [...] provider and may require clearance from your binder layer or PCP: Plavix, Coumadin, Effient, Eliquis, Xarelto, [...] water. NO CHEWING GUM OR HARD CANDY 40507-4Pdeydlhgs encounter CwnbPQ7843-30-87S82:59:17Telephone encounter NoteTXT1.2.840.960238.1.13.104.2.7 .2.587431|4125193410HOVlnqanzfx for patient vmmh86427-0EfkjERRXEVZSQK[address] MecwMybdvaqncRehloorybXTYU51718691 45AOFNKZWZKEXVJSPUWVOPTI2151-36-28 T10:59:171.2.840.137355.1.72.3.15| 1.2.840.596681.1.13.104.2.7.2.7278 [id number] [facility] 2022-11-18 11:53:48 1934-80-34A10:53:48F ormatting of this note might be different from the original.Patient scheduled on [place] with Dr. Gutierrez12/23/2022No Auth Required.Colonoscopy Direct Scheduling [...] your bowel prep instructions? Other, email - [email or web address] you please confirm what pharmacy you would like your bowel prep sent to? [id number] [place], [place] - [address] [place], [place] [address]Phone: [phone] encounter OuplYK2791-05-34G17:27:08Telephone encounter NoteTXT1.2.840.058125.1.13.104.2.7 .2.981644|[id number] for patient cxct42087-1SikyTI328315647Riobra N Soto [address] BhyiByutmjwemYwgqktpxmMAAW79637954 58JYMQRYSUGIMCLCOILHIRIW5513-42-98 T12:27:081.2.840.047548.1.72.3.15| 1.2.840.341033.1.13.104.2.7.2.7278 [id number] Shanita Cerda [facility] 2022-11-17 11:52:46 2707-40-50L30:52:46F ormatting of this note might be different from the original.Orders Brandt Zuñ[place] [address]-3Jfwjvzihe encounter NyuuFK0893-65-64W60:54:50Telephone encounter NoteTXT1.2.840.493496.1.13.104.2.7 .2.602400|[id number] for patient edcl96067-0EgimWDYKUWSNDK52 [id number] 11DGLBUNWHJZKFTWLMBLUIDD1326-17-05 T11:54:501.2.840.344376.1.72.3.15| 1.2.840.325725.1.13.104.2.7.2.7278 [id number] [facility] 2022-11-16 14:17:07 9510-83-77Q84:17:07F ormatting of this note might be different from the original.I do not see a GI referral. Please advise. 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 52384-6Csokmrokp encounter VtdmEB9475-06-15A20:09:25Telephone encounter NoteTXT1.2.840.769929.1.13.104.2.7 .2.475566|[id number] for patient hyvm32219-5PpycGI40892241Cgapq J Zach[id number] 79QSGZPROBEIONIWFFDRFBUC5851-48-87 T14:09:251.2.840.145895.1.72.3.15| 1.2.840.040646.1.13.104.2.7.2.7278 [id number] Genesis Allred [facility] 2022-10-27 16:00:00 2593-22-81S56:00:00F ormatting of this note is different from the original.Images from the original note were not included.Venipuncture collection performed by clean technique on the left anticubitus. Total of 1 attempts were made. Slight pressure and a bandage/dressing were applied to the site(s). The patient experienced no complications. The following specimens were processed according to instructions and sent to [facility] laboratories per lab order on today:today LT BLUE SST 4 RED LAV 1 PPT DK GREEN (LiHep) DK GREEN (SodH) CAZARES DK BLUE (K2) DK BLUE (S) ACD Blood Culture NIPT/NTD 21831-6Fuqem KpwhEK6491-72-58E93:59:31Nurse NoteTXT1.2.840.148998.1.13.104.2.7 .2.330970|[id number] for patient agvu10946-9Sqeek Note[id number] 45UCTWCSYPJCTKBCGZOMCZPK2531-91-66 T15:59:311.2.840.429018.1.72.3.15| 1.2.840.156342.1.13.104.2.7.2.7278 [id number] [facility]
--- NOTE | 2023-09-15 22:30 | RAD REPORT ---
EXAM DESCRIPTION: CTAbdomen Pelvis Wo Contrast - 09/15/2023 10:16 pm CLINICAL HISTORY: Abd pain;Constipation COMPARISON: Abdomen Pelvis Wo Contrast dated 08/15/2021 TECHNIQUE: CT of the abdomen and pelvis was performed without contrast. All CT scans are performed using dose optimization technique as appropriate and may include automated exposure control or mA/KV adjustment according to patient size. FINDINGS: Lower chest: No acute abnormality. Liver: Low-density lesion in the right hepatic lobe has benign imaging features. Biliary: No biliary ductal dilatation. Stomach: No significant focal abnormality. Duodenum: No significant focal abnormality. Pancreas: No significant abnormality. Spleen: No significant abnormality. Adrenal: No suspicious lesions. Kidney/ureter: Mild bilateral hydronephrosis. Nonobstructing 4 mm stone left kidney. Punctate stone i n the right kidney. Retroperitoneum: No retroperitoneal adenopathy. Vascular: No aneurysm. Bowel: Stool burden is mild to moderate in the ascending and transverse colon.. Appendectomy. Peritoneum: No ascites or free air. Bladder: Grossly unremarkable. Reproductive: Hysterectomy . Bones: No acute fracture. Slight L1 compression deformity. Other: n/a IMPRESSION: Bilateral hydronephrosis with distended bladder. Correlate for urinary retention. Bilate ral renal calculi but no ureteral calculi.
[2023-09-15 22:45] LABS: Urine Bilirubin Negative (Negative); Urine Blood Trace-intact (Negative); Urine Clarity Clear (Clear); Urine Color Yellow (Yellow); Urine Glucose Trace (Negative); Urine Ketones Negative (Negative); Urine Nitrite Negative (Negative); Urine Protein Negative (Negative); Urine Urobilinogen 0.2 mg/dL (0.2-1.0); Urine pH 6.5 (5.0-7.0)
[2023-09-15 22:46] LABS: Urine Bacteria <20 /HPF (<20); Urine Culture Reflex Order NOT NEEDED; Urine Microscopic Reflex YN ORDER UMIC; Urine RBC <5 /HPF (None Seen); Urine WBC <5 /HPF (<5)
[2023-09-15 22:50] LABS: Absolute Lymphocytes (CBC) 0.7 K/uL (0.7-4.9); Absolute Monocytes 0.8 K/uL (0.1-1.3); Absolute Neutrophil 11.7 K/uL (1.8-8.0); Hematocrit 32.7 % (36.0-45.0); Lymphocytes % 5.4 % (15.3-44.8); MCH 30.6 pg (27.0-35.0); MCHC 33.7 g/dL (32.0-36.0); MCV 90.6 fL (80-100); MPV 7.8 fL (7.6-11.3); Monocytes % 6.4 % (3.3-12.3); Neutrophils % 88.2 % (41.7-73.7); Nucleated Red Blood Cells % 0.1 % (0-0); Platelets 318 thou/uL (152-406); RBC Red Blood Cell Count 3.61 M/uL (3.86-4.86); Red Cell Distribution Width 12.9 % (12.1-15.2)
[2023-09-15 23:05] LABS: Albumin 3.8 g/dL (3.4-5.0); Albumin/Globulin Ratio 1.1 (1.1-1.8); Anion Gap 9.8 mEq/L (5.0-15.0); Bilirubin Total 0.9 mg/dL (0.2-1.0); Globulin 3.6 g/dL (2.3-3.5); Potassium 3.8 mEq/L (3.5-5.1); Protein, Total 7.4 g/dL (6.4-8.2)
--- NOTE | 2023-09-15 23:09 | EDPHYS ---
Physician Documentation [facility] Name: Venus Kenny Age: 68 yrs Sex: Female : 1955 Arrival Date: 09/15/2023 Time: 21:10 Bed 6 Private MD: ED Physician Crow Cowart HPI: 09/14 22:05 This 68 yrs old Female presents to ER via Wheelchair with complaints of Pelvic sp3 Pain - to back pain. 22:05 60-year-old female with history of prior diverticulitis and total knee replacement sp3 yesterday in [place] by Dr. Tomas presents to the ED with chief complaint constipation, lower abdominal pain after being on several narcotic medications. Patient surgeon recommended several medications and an enema which have had minimal results. Patient's sister is a nurse who is concerned about the level of abdominal pain and brings her to the ED for further evaluation. No significant pain in the left lower extremity. Patient denies any shortness of breath, chest pain or back pain, headache, fever, or any other complications. She also denies any vomiting.. Historical: - Allergies: 21:29 BuSpar; as6 21:29 Iodinated Contrast Media - IV Dye; as6 - PMHx: 21:29 Diverticulitis; Cancer; as6 - PSHx: 21:29 Total abdominal hysterectomy; Tonsillectomy; knee (Cancer); as6 - Immunization history:: Adult Immunizations up to date. - Infectious Disease History:: Denies. - Social history:: Smoking status: Patient denies any tobacco usage or history of. ROS: 22:06 Constitutional: Negative for fever, chills, and weight loss, Eyes: Negative for injury, sp3 pain, redness, and discharge, ENT: Negative for injury, pain, and discharge, Neck: Negative for injury, pain, and swelling, Cardiovascular: Negative for chest pain, palpitations, and edema, Respiratory: Negative for shortness of breath, cough, wheezing, and pleuritic chest pain, Back: Negative for injury and pain, MS/Extremity: Negative for injury and deformity, Skin: Negative for injury, rash, and discoloration, Neuro: Negative for headache, weakness, numbness, tingling, and seizure, Psych: Negative for depression, anxiety, suicide ideation, homicidal ideation, and hallucinations, Allergy/Immunology: Negative for hives, rash, and allergies, Endocrine: Negative for neck swelling, polydipsia, polyuria, polyphagia, and marked weight changes, Hematologic/Lymphatic: Negative for swollen nodes, abnormal bleeding, and unusual bruising, Exam: 22:06 Constitutional: This is a well developed, well nourished patient who is awake, alert, sp3 and in no acute distress. Head/Face: Normocephalic, atraumatic. Eyes: Pupils equal round and reactive to light, extra-ocular motions intact. Lids and lashes normal. Conjunctiva and sclera are non-icteric and not injected. Cornea within normal limits. Periorbital areas with no swelling, redness, or edema. ENT: Nares patent. No nasal discharge, no septal abnormalities noted. External auditory canals are clear. Oropharynx with no redness, swelling, or masses, exudates, or evidence of obstruction, uvula midline. Mucous membranes moist. Neck: Trachea midline, no thyromegaly or masses palpated, and no cervical lymphadenopathy. Supple, full range of motion without nuchal rigidity, or vertebral point tenderness. No Meningismus. Chest/axilla: Normal chest wall appearance and motion. Nontender with no deformity. No lesions are appreciated. Cardiovascular: Regular rate and rhythm with a normal S1 and S2. No gallops, murmurs, or rubs. Normal PMI, no JVD. No pulse deficits. Respiratory: Lungs have equal breath sounds bilaterally, clear to auscultation and percussion. No rales, rhonchi or wheezes noted. No increased work of breathing, no retractions or nasal flaring. Back: No spinal tenderness. No costovertebral tenderness. Full range of motion. Skin: Warm, dry with normal turgor. Normal color with no rashes, no lesions, and no evidence of cellulitis. MS/ Extremity: Pulses equal, no cyanosis. Neurovascular intact. Full, normal range of motion. Neuro: Awake and alert, GCS 15, oriented to person, place, time, and situation. Cranial nerves II-XII grossly intact. Motor strength 5/5 in all extremities. Sensory grossly intact. Cerebellar exam normal. Normal gait. Psych: Awake, alert, with orientation to person, place and time. Behavior, mood, and affect are within normal limits. 22:06 Abdomen/GI: Lower abdominal pain to palpation without peritoneal signs, rebound or guarding. Bilateral lower quadrants noted. No epigastric pain. No CVA tenderness., Vital Signs: 21:24 BP 164 / 87; Pulse 89; Resp 18; Temp 97.2; Pulse Ox 97% ; Weight 56.7 kg; Height 5 ft. as6 0 in. ; Pain 10/10; 22:30 BP 144 / 81; Pulse 84; Resp 17 S; Pulse Ox 97% on R/A; ha1 23:00 BP 147 / 78; Pulse 69; Resp 15 S; Pulse Ox 97% on R/A; ha1 21:24 Body Mass Index 24.41 (56.70 kg, 152.4 cm) as6 21:24 Pain Scale: Adult as6 MDM: 21:36 Patient medically screened. sp3 22:07 Data reviewed: vital signs, nurses notes, lab test result(s), radiologic studies. ED sp3 course: 68-year-old female status post op day 1 from total knee replacement on the left lower extremity now with constipation after narcotic use, lower abdominal pain. Differential diagnosis includes constipation, abdominal cramping, UTI/pyelonephritis spectrum, diverticulitis, other intestinal abnormality. I am not highly suspicious of [employer] pathology, kidney stone, aortic pathology including dissection or aneurysm, or any other critical process including sepsis and shock. Workup includes CT scan of the abdomen pelvis without contrast due to patient allergy, laboratory values and urine analysis. Will hold on any pharmacological intervention until workup is complete. Disposition pending workup and patient course.. 22:34 ED course: CT demonstrates significantly distended bladder with hydronephrosis sp3 bilaterally likely due to postanesthesia urinary retention. Will place Cifuentes catheter. No other significant CT findings noted. Labs still pending. Will discharge home with Cifuentes catheter assuming no abnormalities on remainder of workup.. 09/14 21:59 Order name: CBC with Diff sp3 09/14 21:59 Order name: CMP; Complete Time: 23:07 sp3 09/14 21:59 Order name: Lipase; Complete Time: 23:07 sp3 09/14 22:45 Order name: Urinalysis w/ reflexes; Complete Time: 23:07 EDMS 09/14 22:53 Order name: Manual Differential EDMS 09/14 21:59 Order name: CT Abd/Pelvis - Without Contrast; Complete Time: 22:31 sp3 09/14 21:59 Order name: IV Saline Lock; Complete Time: 22:42 sp3 09/14 21:59 Order name: Labs collected and sent; Complete Time: 22:42 sp3 09/14 22:33 Order name: Cifuentes; Complete Time: 23:20 sp3 Administered Medications: No medications were administered Disposition Summary: 09/15/23 23:08 Discharge Ordered Notes: Location: Home sp3 Condition: Stable sp3 Diagnosis - Postoperative urinary retention, abdominal pain, constipation sp3 Followup: sp3 - With: Private Physician - When: Upon discharge from the Emergency Department - Reason: Continuance of care Discharge Instructions: - Discharge Summary Sheet sp3 - Indwelling Urinary Catheter Care, Adult sp3 - Acute Urinary Retention, Female sp3 Forms: - Medication Reconciliation Form sp3 - Antibiotic Education sp3 - Prescription Opioid Use sp3 - Patient Portal Instructions sp3 - Leadership Thank You Letter sp3 Prescriptions: - Bactrim DS 800-160 mg Oral Tablet - take 1 tablet ORAL route every 12 hours for 3 days; 6 tablet; Refills: 0, sp3 Product Selection Permitted Signatures: Dispatcher [employer] EDMS Crow Cowart MD MD sp3 Pk Brown RN RN as6 Corrections: (The following items were deleted from the chart) 22:49 21:59 Urinalysis+U.LAB.BRZ ordered. EDNY EDMS 23:20 21:59 Cifuentes ordered. sp3 ha1
--- NOTE | 2023-09-15 23:09 | ER ---
Nurse's Notes [facility] Name: Venus Kenny Age: 68 yrs Sex: Female : 1955 Arrival Date: 09/15/2023 Time: 21:10 Bed 6 Private MD: Diagnosis: Postoperative urinary retention, abdominal pain, constipation Presentation: 09/14 21:24 Coronavirus screen: At this time, the client does not indicate any symptoms associated as6 with coronavirus-19. Ebola Screen: No symptoms or risks identified at this time. Risk Assessment: Do you want to hurt yourself or someone else? Patient reports no desire to harm self or others. 21:24 Method Of Arrival: Wheelchair as6 21:24 Chief complaint: Friend and/or Co-Worker states: pt had a knee replacement yesterday as6 and was discharged today and is c/o constipation and burning with urination. Initial Sepsis Screen: Does the patient meet any 2 criteria? No. Patient's initial sepsis screen is negative. Does the patient have a suspected source of infection? No. Patient's initial sepsis screen is negative. Onset of symptoms was September 15, 2023. 21:24 Acuity: BG 3 as6 Triage Assessment: 22:20 General: Appears uncomfortable, Behavior is calm, cooperative. Neuro: Level of ha1 Consciousness is awake, alert, obeys commands, Oriented to person, place, time, situation. Historical: - Allergies: 21:29 BuSpar; as6 21:29 Iodinated Contrast Media - IV Dye; as6 - PMHx: 21:29 Diverticulitis; Cancer; as6 - PSHx: 21:29 Total abdominal hysterectomy; Tonsillectomy; knee (Cancer); as6 - Immunization history:: Adult Immunizations up to date. - Infectious Disease History:: Denies. - Social history:: Smoking status: Patient denies any tobacco usage or history of. Screenin:21 [facility] ED Fall Risk Assessment (Adult) History of falling in the last 3 months, ha1 including since admission No falls in past 3 months (0 pts) Confusion or Disorientation No (0 pts) Intoxicated or Sedated No (0 pts) Impaired Gait Yes (1 pt) Mobility Assist Device Used Yes (1 pt) Altered Elimination No (0 pt) Score/Fall Risk Level 3 or more points = High Risk Oriented to surroundings, Maintained a safe environment, Educated pt \T\ family on fall prevention, incl call for assistance when getting out of bed, Hourly rounding (assess needs \T\ fall precautionary measures) done. Abuse screen: Denies threats or abuse. Denies injuries from another. Nutritional screening: No deficits noted. Tuberculosis screening: No symptoms or risk factors identified. Assessment: 22:00 General: Appears uncomfortable, Behavior is calm, cooperative. Pain: Complains of pain ha1 in pelvis Pain does not radiate. Pain currently is 7 out of 10 on a pain scale. Quality of pain is described as heavy, pressure. Neuro: Level of Consciousness is awake, alert, obeys commands. Cardiovascular: Capillary refill < 3 seconds Patient's skin is warm and dry. Respiratory: Airway is patent Respiratory effort is even, unlabored, Respiratory pattern is regular, symmetrical. Musculoskeletal: Reports recent left knee surgery. 22:13 Reassessment: Pt to CT at this time VIA wheelchair. ss 23:15 Reassessment: Patient and/or family updated on plan of care and expected duration. Pain ha1 level reassessed. Patient is alert, oriented x 3, equal unlabored respirations, skin warm/dry/pink. Patient denies pain at this time. Patient states feeling better. Patient states symptoms have improved. 23:22 Reassessment: pt. discharge with Cifuentes in place. provided education in the need to ha1 follow up with PCP. Vital Signs: 21:24 BP 164 / 87; Pulse 89; Resp 18; Temp 97.2; Pulse Ox 97% ; Weight 56.7 kg; Height 5 ft. as6 0 in. ; Pain 10/10; 22:30 BP 144 / 81; Pulse 84; Resp 17 S; Pulse Ox 97% on R/A; ha1 23:00 BP 147 / 78; Pulse 69; Resp 15 S; Pulse Ox 97% on R/A; ha1 21:24 Body Mass Index 24.41 (56.70 kg, 152.4 cm) as6 21:24 Pain Scale: Adult as6 ED Course: 21:13 Patient arrived in ED. ra3 21:14 Crow Cowart MD is Attending Physician. sp3 21:24 Arm band placed on. as6 21:29 Triage completed. as6 21:29 Patient has correct armband on for positive identification. Placed in gown. Bed in low ha1 position. Call light in reach. Side rails up X 1. 22:00 Provided Education on: need for follow up . ha1 22:15 Inserted saline lock: 20 gauge in right antecubital area, using aseptic technique. ha1 Blood collected. 22:17 CT Abd/Pelvis - Without Contrast In Process Unspecified. EDMS 22:42 CBC with Diff Sent. ha1 22:42 CMP Sent. ha1 22:42 Lipase Sent. ha1 23:20 Cifuentes cath inserted, using sterile technique, 16 Fr., by vt, balloon inflated, to ha1 gravity drainage, returned cloudy urine. Patient tolerated well. 23:25 No provider procedures requiring assistance completed. IV discontinued, intact, ha1 bleeding controlled, No redness/swelling at site. Pressure dressing applied. Administered Medications: No medications were administered Medication: 23:25 VIS not applicable for this client. ha1 Outcome: 23:08 Discharge ordered by . sp3 23:25 Discharged to home via wheelchair, with family, ha1 23:25 Condition: stable 23:25 Discharge instructions given to patient, family, Instructed on discharge instructions, follow up and referral plans. medication usage, Demonstrated understanding of instructions, follow-up care, medications, Prescriptions given X 1, 23:33 Patient left the ED. ha1 Signatures: Dispatcher [employer] EDMS Vandana Campbell, RN BETSY Crow Cowart MD MD sp3 Pk Brown RN RN as6 Darby León RN RN [facility] Brittnee Morrison 3 Corrections: (The following items were deleted from the chart) 22:49 22:42 Urinalysis+U.LAB.BRZ drawn and sent. ha1 EDMS
[2023-09-16 00:25] VITALS: BP 164/87; TEMP 97.2; O2SAT 97
[2023-09-16 00:39] LABS: Band Neutrophils 6 % (0-1); Blood Morphology Comment NOT SEEN (NOT SEEN); Differential Total Cells Count 100; Lymphocytes 3 % (15-42); Monocytes 7 % (0-10); Platelet Estimate ADEQ; Reactive Lymphocytes 1 %; Segmented Neutrophils 83 % (40-80)
== END 2023-09-15 23:33 | disposition home or self-care (01) ==
LOC: ER 21:10
DX: R33.8 Other retention of urine (principal); K59.00 Constipation, unspecified; R10.9 Unspecified abdominal pain; Z96.659 Presence of unspecified artificial knee joint
CPT/HCPCS: 36415; 51702; 74176; 80053; 81001; 83690; 85025; 99284

== ENCOUNTER 2025-01-17 23:09 | Emergency (ER) | payer OTHER ==
[2025-01-18] MEDS ORDERED: MORPHINE 2 MG/ML SYR ONE (00:26)
[2025-01-18] MEDS ORDERED: KETOROLAC 30 MG/ML INJ ONE (00:26)
[2025-01-18] MEDS ORDERED: ONDANSETRON 4 MG/2 ML VIAL ONE (00:26)
[2025-01-18] MEDS ORDERED: MAGNESIUM CITRATE 300 ML BOT ONE (00:27)
[2025-01-18] MEDS ORDERED: NA CHLORIDE 0.9% 1,000 ML ONE (00:27)
[2025-01-18 00:41] LABS: Absolute Lymphocytes (CBC) 1.0 K/uL (0.7-4.9); Hematocrit 33.8 % (36.0-45.0); Hemoglobin 11.4 g/dL (12.0-15.0); MCH 30.2 pg (27.0-35.0); MCHC 33.7 g/dL (32.0-36.0); MCV 89.8 fL (80-100); MPV 8.4 fL (7.6-11.3); Nucleated RBC Absolute Count 0.0 (0-0); Nucleated Red Blood Cells % 0.0 % (0-0); RBC Red Blood Cell Count 3.77 M/uL (3.86-4.86); White Blood Count 9.90 thou/uL (4.3-10.9)
[2025-01-18 00:50] LABS: ALT/SGPT 29.0 U/L (13-56); AST/SGOT 112.0 U/L (15-37); Albumin 3.6 g/dL (3.4-5.0); Albumin/Globulin Ratio 0.9 (1.1-1.8); Alkaline Phosphatase 91.0 U/L (45-117); Anion Gap 12.5 mEq/L (5.0-15.0); BUN Blood Urea Nitrogen 11.0 mg/dL (7-18); Globulin 4.2 g/dL (2.3-3.5); Glucose Level 148.0 mg/dL (74-106); Potassium 3.5 mEq/L (3.5-5.1)
[2025-01-18] MEDS ORDERED: METOCLOPRAMIDE 10 MG/2mL INJ ONE (01:09)
[2025-01-18 01:51] LABS: Urine Microscopic Reflex YN NO UMIC
--- NOTE | 2025-01-18 02:19 | RAD REPORT ---
PROCEDURE: CT Abdomen and Pelvis Without Intravenous Contrast CLINICAL INDICATION: The patient is 69 years old and is Female; Fecal impaction. TECHNIQUE: Axial computed tomography images of the abdomen and pelvis without intravenous contrast. Sagittal a nd coronal reformatted images were created and reviewed. This CT exam was performed using one or more of the following dose reduction techniques: automated exposure control, adjustment of the mA a nd/or kV according to patient size, and/or use of iterative reconstruction technique. COMPARISON: CT Abdomen pelvis 09/15/2023. FINDINGS: LUNG BASES: Unremarkable No mass. No consolidation. ABDOMEN: LIVER: Low attenuation foci in the liver some of which are due to cysts. Others are too small to characterize. No dedicated imaging follow-up recommended. GALLBLADDER AND BILE DUCTS: Unremarkable No calcified stones. No ductal dilation. PANCREAS: Unremarkable No ductal dilation. SPLEEN: Unremarkable No splenomegaly. ADRENALS: Unremarkable No mass. KIDNEYS AND URETERS: Mild bilateral hydronephrosis redemonstrated. No obstructing intraureteral sto arina or source of extrinsic ureteral obstruction appreciated. Small bilateral nonobstructing intrarenal stones. STOMACH AND BOWEL: Colonic diverticulosis without evidence of acute diverticulitis. No obstruction. PELVIS: APPENDIX: No findings to suggest acute appendicitis. BLADDER: Moderate distention of the urinary bladder with no wall thickening or perivesicular fat st randing. No stones. REPRODUCTIVE: Unremarkable as visualized. ABDOMEN and PELVIS: INTRAPERITONEAL SPACE: Unremarkable No free air. No significant fluid collection. BONES/JOINTS: Scoliotic curvature of the lumbar and visualized thoracic spine. Total left hip arthroplasty appears in good anatomic alignment, and new from reference exam. No acute fracture. SOFT TISSUES: Subcutaneous fat stranding demonstrated along the lateral aspect of the left hip and visualized proximal left femur, as well as deep tissue gas demonstrated along the lateral aspect of the proximal left quadriceps musculature and musculature around the left hip, presumably related to r ecent left hip arthroplasty placement. Subtle ovoid area of hyperattenuation in the inferior left gluteus maximum muscle also body, suspicious for small intramuscular hematoma. VASCULATURE: Unremarkable No abdominal aortic aneurysm. LYMPH NODES: Unremarkable No enlarged lymph nodes. IMPRESSION: 1. Total left hip arthroplasty appears in good anatomic alignment, and is new from reference exam. Nearby soft tissue edema and deep tissue gas is presumably related to recent prosthesis placement. If patient has not recently had left hip arthroplasty (within 1-2 weeks), recommend further evaluatio n for possible infection. 2. Subtle ovoid area of hyperattenuation in the inferior left gluteus maximum muscle also body, antione picious for small intramuscular hematoma. 3. Mild bilateral hydronephrosis, and moderate distention of the urinary bladder, redemonstrated. N o obstructing intraureteral stones or other obvious source of outflow obstruction appreciated. Clinical correlation for urinary retention recommended. 4. Small bilateral nonobstructing intrarenal stones. 5. Colonic diverticulosis without evidence of acute diverticulitis. Electronically signed by: Milan Youngblood MD 01/18/2025 02:15 AM CDT RP Due to temporary technical issues with the PACS/[employer] reporting system, reports are being keyon d by the in-house radiologist without review as a courtesy to ensure prompt reporting the interpreting radiologist is fully responsible for the content of the report. Transcribed Date/Time: 01/18/2025 2:19 AM
--- NOTE | 2025-01-18 03:38 | EDPHYS ---
Physician Documentation [facility] Name: Venus Bolivar Age: 69 yrs Sex: Female : 1955 Arrival Date: 01/17/2025 Time: 23:09 Bed 15 Private MD: ED Physician Jose Evans HPI: 01/17 23:16 This 69 yrs old Female presents to ER via Unassigned with complaints of sp4 Urinary Retention, Post op hip replacement surgery 01-14-25, no bowel movement. 01/18 04:14 Patient reports she had left total hip arthroplasty on [address]/15/[address] in [place]. After that she was given [facility] p.o. for pain. Patient reported that her Cifuentes catheter was taken out 2 days ago. Patient now presents with urinary bladder discomfort distention and pain. She also states she feels impacted. Patient at this time takes aspirin, Celebrex, laxatives and hydrocodone for pain.. Historical: - Allergies: 01/17 23:39 BuSpar; jj7 23:39 Iodinated Contrast Media - IV Dye; jj7 - PMHx: 23:39 Cancer; Diverticulitis; jj7 - PSHx: 23:39 knee (Canc); Left knee replacement (ab); Tonsillectomy; Total abdominal hysterectomy; jj7 LEFT HIP REPLACEMENT (Total abdominal hysterectomy); - Immunization history:: Adult Immunizations up to date. - Infectious Disease History:: Denies. - Social history:: Smoking status: Patient denies any tobacco usage or history of. Patient/guardian denies using alcohol, street drugs, IV drugs. - Family history:: not pertinent. ROS: 01/18 04:14 Constitutional: Negative for fever, chills, and weight loss, positive for acute bladder sp4 discomfort distention and pain. Positive for rectal pain All other systems are negative, Exam: 04:14 Constitutional: Well-developed well-nourished patient ambulatory with assist. sp4 Head/Face: Normocephalic, atraumatic. Eyes: Pupils equal round and reactive to light, extra-ocular motions intact. Lids and lashes normal. Conjunctiva and sclera are not injected. Cornea within normal limits. Periorbital areas with no swelling, redness, or edema. ENT: Nares patent. No nasal discharge, no septal abnormalities noted. Tympanic membranes are normal and external auditory canals are clear. Oropharynx with no redness, swelling, or masses, exudates, or evidence of obstruction, uvula midline. Mucous membranes moist. Neck: Trachea midline, no thyromegaly or masses palpated, and no cervical lymphadenopathy. Supple, full range of motion without nuchal rigidity, or vertebral point tenderness. Chest/axilla: Normal chest wall appearance and motion. Nontender with no deformity. No lesions are appreciated. Cardiovascular: Regular rate and rhythm with a normal S1 and S2. No gallops, murmurs, or rubs. No pulse deficits. Respiratory: Lungs have equal breath sounds bilaterally, clear to auscultation and percussion. No rales, rhonchi or wheezes noted. No increased work of breathing, no retractions or nasal flaring. Abdomen/GI: Soft, with normal bowel sounds. No distension or tympany. No guarding or rebound. No evidence of tenderness throughout. Back: No spinal tenderness. No costovertebral tenderness. Skin: Warm, dry with normal turgor. Normal color with no rashes, no lesions, and no evidence of cellulitis. There is left upper lateral thigh postoperative incision from recent total hip arthroplasty. Incision clean dry and intact. There is moderate hematoma surrounding the incision. MS/ Extremity: Pulses equal, no cyanosis. Neurovascular intact. Diminished range of motion left hip secondary to pain. Significant hematoma left upper lateral thigh secondary to recent hip arthroplasty. Neuro: Awake and alert, GCS 15, oriented to person, place, time, and situation. Cranial nerves II-XII grossly intact. Motor strength 5/5 in all extremities. Sensory grossly intact. Psych: Awake, alert, with orientation to person, place and time. Behavior, mood, and affect are within normal limits Vital Signs: 01/17 23:31 BP 153 / 90; Pulse 98; Resp 20; Temp 97.9; Pulse Ox 100% ; Weight 57.15 kg; Height 5 jj7 ft. 0 in. ; Pain 12/29; 01/18 03:32 BP 107 / 89; Pulse 94; Resp 16; Pulse Ox 100% on R/A; kd4 03:32 Temp 98.1(O); Pain 2/10; kd4 01/17 23:31 Body Mass Index 24.61 (57.15 kg, 152.4 cm) jj7 01/17 23:31 Pain Scale: Adult jj7 03:32 Pain Scale: Adult kd4 [place] Coma Score: 00:34 Eye Response: spontaneous(4). Verbal Response: oriented(5). Motor Response: obeys kd4 commands(6). Total: 15. 04:14 Eye Response: spontaneous(4). Verbal Response: oriented(5). Motor Response: obeys sp4 commands(6). Total: 15. MDM: 00:21 Medical Screening Exam initiated sp4 03:33 Data reviewed: vital signs, nurses notes, old medical records, lab test result(s), sp4 radiologic studies, CT scan. 03:35 ED course: CT report - IMPRESSION: 1. Total left hip arthroplasty appears in good sp4 anatomic alignment, and is new from reference exam. Nearby soft tissue edema and deep tissue gas is presumably related to recent prosthesis placement. If patient has not recently had left hip arthroplasty (within 1-2 weeks), recommend further evaluation for possible infection. 2. Subtle ovoid area of hyperattenuation in the inferior left gluteus maximum muscle also body, suspicious for small intramuscular hematoma. 3. Mild bilateral hydronephrosis, and moderate distention of the urinary bladder, redemonstrated. No obstructing intraureteral stones or other obvious source of outflow obstruction appreciated. Clinical correlation for urinary retention recommended. RADIOLOGY SERVICES REPORT 4. Small bilateral nonobstructing intrarenal stones. 5. Colonic diverticulosis without evidence of acute diverticulitis. Electronically signed by: Milan Youngblood MD 01/18/2025 02:15 AM. 04:14 Differential diagnosis: kidney stone, malignancy, urinary tract infection. sp4 Consideration of Admission/Observation Escalation of care including admission/observation considered. ED course: Cifuentes catheter was placed and instantly 1.2 L of urine was evacuated. Patient felt much improved. CT revealed urinary bladder distention with bilateral hydronephrosis. Patient was given a leg bag and advised to continue catheter for 1 week. Advised to return to the emergency department on 01/26/2025 to remove Cifuentes catheter and voiding trial. Additionally and alternatively patient was advised to see her urologist for voiding trial in the office.. 01/17 23:39 Order name: CBC with Diff; Complete Time: 03:14 sp4 01/17 23:39 Order name: CMP; Complete Time: 03:14 sp4 01/17 23:39 Order name: UA Rfx Carlin Cult if indicated; Complete Time: 03:14 sp4 01/17 23:39 Order name: CT Abd/Pelvis - Without Contrast; Complete Time: 03:14 sp4 01/17 23:39 Order name: Cifuentes sp4 01/17 23:39 Order name: IV Saline Lock sp4 01/17 23:39 Order name: Labs collected and sent sp4 Administered Medications: 00:37 Drug: Ondansetron IVP 4 mg IVP once; over 2 minutes Route: IVP; Site: right antecubital;kd4 01:13 Follow up: Response: No adverse reaction kd4 01:13 Follow up: Response: No adverse reaction kd4 00:38 Drug: TORadol - Ketorolac IVP 30 mg IVP once Route: IVP; Site: right antecubital; kd4 01:13 Follow up: Response: No adverse reaction kd4 00:38 Drug: morphine IVP or IV 4 mg IVP once over 4 mins Route: IVP; Infused Over: 4 mins; kd4 Site: right antecubital; 01:13 Follow up: Response: No adverse reaction kd4 00:38 Drug: NS 0.9% IV 1000 ml IV at 1 bolus Per protocol; to be given as a bolus over 60 kd4 minutes Route: IV; Rate: 1 bolus; Site: right antecubital; 03:53 Follow up: IV Status: Completed infusion kd4 00:38 Drug: Magnesium Citrate PO Liquid 300 ml PO once Route: PO; kd4 01:46 Follow up: Response: No adverse reaction kd4 01:12 Drug: metoCLOPramide IVP 10 mg IVP once; over 1 to 2 minutes Route: IVP; Site: right kd4 antecubital; 01:46 Follow up: Response: No adverse reaction kd4 02:35 Follow up: Response: No adverse reaction kd4 Disposition Summary: 01/18/25 03:38 Discharge Ordered Notes: Location: Home sp4 Problem: new sp4 Symptoms: have improved sp4 Condition: Stable sp4 Diagnosis - Acute Urinary Retention , Acute postoperative urinary retention with urinary sp4 bladder distention Followup: sp4 - With: Private Physician - When: 7 - 10 days - Reason: Recheck today's complaints Discharge Instructions: - Discharge Summary Sheet sp4 - Indwelling Urinary Catheter Care, Adult, [id number] sp4 Forms: - Patient Portal Instructions sp4 Signatures: Dispatcher [employer] Xochitl Gaines RN RN jj7 Jose Evans MD MD sp4 Miladis Robins RN RN kd4
--- NOTE | 2025-01-18 03:38 | ER ---
Nurse's Notes [facility] Name: Venus Bolivar Age: 69 yrs Sex: Female : 1955 Arrival Date: 01/17/2025 Time: 23:09 Bed 15 Private MD: Diagnosis: Acute Urinary Retention , Acute postoperative urinary retention with urinary bladder distention Presentation: 01/17 23:31 Chief complaint: Patient states: HAD HIP REPLACEMENT WEDNESDAY. JUST RELEASED FROM [address] TODAY. HAS NOT HAD BM SINCE WEDNESDAY. PT STATES COULDN'T PASS URINE ON HER OWN WHILE AT THE HOSPITAL SO YESTERDAY THEY DID A STRAIGHT CATH TO EMPTY HER BLADDER. HAS NOT BEEN ABLE TO PASS URINE SINCE. Coronavirus screen: At this time, the client does not indicate any symptoms associated with coronavirus-19. Ebola Screen: No symptoms or risks identified at this time. Initial Sepsis Screen: Does the patient meet any 2 criteria? HR > 90 bpm. Yes Does the patient have a suspected source of infection? No. Patient's initial sepsis screen is negative. Risk Assessment: Do you want to hurt yourself or someone else? Patient reports no desire to harm self or others. Onset of symptoms was January 17, 2025. 23:31 Method Of Arrival: Wheelchair [facility] 23:31 Acuity: BG 3 [facility] Triage Assessment: 23:39 General: Appears in no apparent distress. uncomfortable, Behavior is calm, cooperative, jj7 appropriate for age. Pain: Complains of pain in abdomen and pelvis. Neuro: Level of Consciousness is awake, alert, obeys commands, Oriented to person, place, time, situation, Appropriate for age. : Reports inability to void. 23:39 GI: Reports constipation. [facility] Historical: - Allergies: 23:39 BuSpar; jj7 23:39 Iodinated Contrast Media - IV Dye; j7 - PMHx: 23:39 Cancer; Diverticulitis; j - PSHx: 23:39 knee (Canc); Left knee replacement (ab); Tonsillectomy; Total abdominal hysterectomy; j7 LEFT HIP REPLACEMENT (Total abdominal hysterectomy); - Immunization history:: Adult Immunizations up to date. - Infectious Disease History:: Denies. - Social history:: Smoking status: Patient denies any tobacco usage or history of. Patient/guardian denies using alcohol, street drugs, IV drugs. - Family history:: not pertinent. Screenin/30 00:34 [facility] ED Fall Risk Assessment (Adult) History of falling in the last 3 months, kd4 including since admission No falls in past 3 months (0 pts) Confusion or Disorientation No (0 pts) Intoxicated or Sedated No (0 pts) Impaired Gait Yes (1 pt) Mobility Assist Device Used Yes (1 pt) Altered Elimination Yes (1 pt) Score/Fall Risk Level 3 or more points = High Risk Oriented to surroundings, Maintained a safe environment, Educated pt \T\ family on fall prevention, incl call for assistance when getting out of bed. Abuse screen: Denies threats or abuse. Nutritional screening: No deficits noted. Tuberculosis screening: No symptoms or risk factors identified. Assessment: 00:34 General: Appears distressed, uncomfortable. Pain: Complains of pain in pelvis and kd4 abdomen Pain currently is 10 out of 10 on a pain scale. Neuro: Denies weakness blurred vision dizziness, difficulty swallowing. Cardiovascular: No deficits noted. Respiratory: No deficits noted. GI: Reports constipation. : Reports inability to void. 01:15 General: Bladder scan reading >990 ml. kd4 03:51 General: Cifuentes cath placed, rubber goods tester watched, sterile technique maintained. Leg bag kd4 applied , patient d/c. instruction and education provided.. Vital Signs: 01/17 23:31 BP 153 / 90; Pulse 98; Resp 20; Temp 97.9; Pulse Ox 100% ; Weight 57.15 kg; Height 5 jj7 ft. 0 in. ; Pain 10; 01/18 03:32 BP 107 / 89; Pulse 94; Resp 16; Pulse Ox 100% on R/A; kd4 03:32 Temp 98.1(O); Pain 2/10; kd4 01/17 23:31 Body Mass Index 24.61 (57.15 kg, 152.4 cm) [facility] 01/17 23:31 Pain Scale: Adult jj7 03:32 Pain Scale: Adult kd4 [place] Coma Score: 00:34 Eye Response: spontaneous(4). Verbal Response: oriented(5). Motor Response: obeys kd4 commands(6). Total: 15. 04:14 Eye Response: spontaneous(4). Verbal Response: oriented(5). Motor Response: obeys sp4 commands(6). Total: 15. ED Course: 01/17 23:15 Patient arrived in ED. gm2 23:15 Jose Evans MD is Attending Physician. sp4 23:39 Triage completed. jj7 23:39 Arm band placed on left wrist. jj7 01/18 00:08 Miladis Robins, RN is Primary Nurse. kd4 00:34 Patient has correct armband on for positive identification. Bed in low position. Call kd4 light in reach. Side rails up X2. Adult w/ patient. Client placed on continuous cardiac and pulse oximetry monitoring. NIBP monitoring applied. floral artist on. Pulse ox on. NIBP on. 00:34 Initial lab(s) drawn, by me, sent to lab. Inserted saline lock: 20 gauge in right kd4 antecubital area, using aseptic technique. 01:12 CT Abd/Pelvis - Without Contrast In Process Unspecified. EDMS 01:35 Bladder scan completed. >990 ml. Cifuentes cath inserted, using sterile technique, 16 Fr., kd4 by pa, balloon inflated, urine specimen collected. Patient tolerated well. 03:50 No provider procedures requiring assistance completed. IV discontinued. kd4 03:51 Provided Education on: d/c. kd4 Administered Medications: 00:37 Drug: Ondansetron IVP 4 mg IVP once; over 2 minutes Route: IVP; Site: right antecubital;kd4 01:13 Follow up: Response: No adverse reaction kd4 01:13 Follow up: Response: No adverse reaction kd4 00:38 Drug: TORadol - Ketorolac IVP 30 mg IVP once Route: IVP; Site: right antecubital; kd4 01:13 Follow up: Response: No adverse reaction kd4 00:38 Drug: morphine IVP or IV 4 mg IVP once over 4 mins Route: IVP; Infused Over: 4 mins; kd4 Site: right antecubital; 01:13 Follow up: Response: No adverse reaction kd4 00:38 Drug: NS 0.9% IV 1000 ml IV at 1 bolus Per protocol; to be given as a bolus over 60 kd4 minutes Route: IV; Rate: 1 bolus; Site: right antecubital; 03:53 Follow up: IV Status: Completed infusion kd4 00:38 Drug: Magnesium Citrate PO Liquid 300 ml PO once Route: PO; kd4 01:46 Follow up: Response: No adverse reaction kd4 01:12 Drug: metoCLOPramide IVP 10 mg IVP once; over 1 to 2 minutes Route: IVP; Site: right kd4 antecubital; 01:46 Follow up: Response: No adverse reaction kd4 02:35 Follow up: Response: No adverse reaction kd4 Medication: 00:34 VIS not applicable for this client. kd4 Output: 02:03 Urine: 1200ml (Cifuentes); Total: 1200ml. kd4 Outcome: 03:38 Discharge ordered by . sp4 03:50 Discharged to home via wheelchair, with family, kd4 03:50 Condition: stable 03:50 Discharge instructions given to patient, family, Instructed on discharge instructions, follow up and referral plans. Demonstrated understanding of instructions, 03:52 Patient left the ED. kd4 Signatures: Dispatcher [employer] Xochitl Gaines RN RN jj7 Jose Evans MD MD sp4 Shannon Milner gm2 Miladis Robins RN RN kd4
[2025-01-18 04:14] VITALS: O2SAT 100
[2025-01-18 04:16] VITALS: BP 107/89; TEMP 98.1
== END 2025-01-18 03:52 | disposition home or self-care (01) ==
LOC: ER 23:09
DX: R33.8 Other retention of urine (principal); N32.89 Other specified disorders of bladder; Z96.642 Presence of left artificial hip joint; Z96.652 Presence of left artificial knee joint
CPT/HCPCS: 96361; 85025; 36415; 81003; 80053; 74176; 51702; 96375; 96374; 99285; J1885; J2765; J2270; J2405; J7030